=== PATIENT | female | born 1945 | race Hispanic/Latino ===

== ENCOUNTER 2019-01-09 21:03 | Inpatient (IN) | payer OTHER ==
--- OUTSIDE RECORDS SUMMARY | 2019-01-09 21:05 | XMS REPORT | Clinical Summary ---
:1945 Author Organization [facility] Address [address] [place] [address] Care Team Providers Name Role Phone Rupert Primary Care Provider Allergies No Known Allergies Medications Medication Sig Dispensed Refills Start Date End Date Status atorvastatin (LIPITOR) 40 Take 40 mg by 0 Active MG tablet mouth daily. glipiZIDE (GLUCOTROL) 10 Take 10 mg by 0 Active MG tablet mouth daily. aspirin 81 MG chewable Take 1 tablet 30 tablet 11 05/31/2017 tablet (81 mg total) 8 by mouth daily. ferrous sulfate 325 (65 Take 1 tablet 60 tablet 0 05/31/2017 FE) MG tablet (325 mg total) 8 by mouth 2 (two) times daily. hydroCHLOROthiazide Take 1 capsule 30 capsule 2 05/31/2017 (MICROZIDE) 12.5 mg (12.5 mg 8 capsule total) by mouth daily. labetalol (NORMODYNE) 300 Take 1 tablet 60 tablet 11 05/31/2017 MG tablet (300 mg total) 8 by mouth every 12 (twelve) hours. losartan (COZAAR) 100 MG Take 1 tablet 30 tablet 11 06/01/2017 tablet (100 mg total) 8 by mouth daily. metFORMIN (GLUCOPHAGE) Take 1 tablet 60 tablet 11 05/31/2017 850 MG tablet (850 mg total) 8 by mouth 2 (two) times daily with breakfast and dinner. spironolactone Take 1 tablet 30 tablet 11 05/31/2017 (ALDACTONE) 50 MG tablet (50 mg total) 8 by mouth daily. Active Problems Problem Noted Date Coronary artery arteriosclerosis 05/22/2017 Acute pulmonary insufficiency following thoracic surgery 05/22/2017 Acute blood loss anemia 05/22/2017 Social History Tobacco Use Types Packs/Day Years Used Date Never Smoker Alcohol Use Drinks/Week oz/Week Comments No Sex Assigned at Date Recorded Not on file Job Start Date Occupation Industry Not on file Not on file Not on file Travel History Travel Start Travel End No recent travel history available. Last Filed Vital Signs Not on file Plan of Treatment Health Maintenance Due Date Last Done Comments INFLUENZA VACCINE 07/30/2018 Results Not on fileafter 01/08/2018 Insurance Payer Benefit Plan / Subscriber ID Type Phone Address Group [employer] - MEDICARE [employer] MED[employer]ARE HMO xxxxxxxx [phone] [id number] [employer] POS PPO [place] [id number] Advance Directives For more information, please contact:[address] [place], [place] [phone] Code Status Date Activated Date Inactivated Comments Full Code 05/22/2017 11:38 AM 05/31/2017 5:35 PM This code status was determined by: Patient
--- OUTSIDE RECORDS SUMMARY | 2019-01-09 21:07 | XMS REPORT ---
:1945 [facility] Address [address] [place] [address] Care Team Providers Name Role Phone DARLENE SIMON Unavailable Unavailable Problems This patient has no known problems. Allergies, Adverse Reactions, Alerts This patient has no known allergies or adverse reactions. Medications This patient has no known medications. Results Test Description Test Time Test Comments Text Results Atomic Results Result Comments POCT-GLUCOSE METER 2017-05-31 07:43:00 Test Item Value Reference Range Comments POC-GLUCOSE METER (BEAKER) (test 174 mg/dL 70-110 TESTED AT [facility] [address] [facility] xgoo=3792) [facility] [address] BASIC METABOLIC [id number] 07:28:00 Test Item Value Reference Range Comments SODIUM (BEAKER) (test 140 meq/L 136-145 fsfe=242) POTASSIUM (BEAKER) (test 3.8 meq/L 3.5-5.1 jeal=584) CHLORIDE (BEAKER) (test 99 meq/L 98-107 uplt=450) CO2 (BEAKER) (test 30 meq/L 22-29 ggon=999) BLOOD UREA NITROGEN 36 mg/dL 7-21 (BEAKER) (test iwoe=887) CREATININE (BEAKER) (test 1.10 mg/dL 0.57-1.25 pcoq=940) GLUCOSE RANDOM (BEAKER) 158 mg/dL 70-105 (test rzzx=976) CALCIUM (BEAKER) (test 9.4 mg/dL 8.4-10.2 mpuq=597) EGFR (BEAKER) (test mL/min/1.73 sq m INSUFFICIENT CLINICAL DATA uzfu=6194) TO CALCULATE ESTIMATED GFR. [id number] 07:16:00 Test Item Value Reference Range Comments PHOSPHORUS (BEAKER) (test wofi=636) 3.7 mg/dL 2.3-4.7 [id number] 07:16:00 Test Item Value Reference Range Comments MAGNESIUM (BEAKER) (test oimv=094) 1.9 mg/dL 1.6-2.6 POCT-GLUCOSE [id number] 20:52:00 Test Item Value Reference Range Comments POC-GLUCOSE METER (BEAKER) 256 mg/dL 70-110 TESTED AT [address] (test lvys=6765) [facility] [address] POCT-GLUCOSE [id number] 19:07:00 Test Item Value Reference Range Comments POC-GLUCOSE METER (BEAKER) 210 mg/dL 70-110 TESTED AT [address] (test kruz=8249) [facility] [address] POCT-GLUCOSE [id number] 14:29:00 Test Item Value Reference Range Comments POC-GLUCOSE METER (BEAKER) 179 mg/dL 70-110 TESTED AT [address] (test zjnq=4323) [place] [id number] POCT-GLUCOSE [id number] 09:09:00 Test Item Value Reference Range Comments POC-GLUCOSE METER (BEAKER) 186 mg/dL 70-110 TESTED AT [address] (test bqoe=8133) [facility] [address] BASIC METABOLIC [id number] 07:41:00 Test Item Value Reference Range Comments SODIUM (BEAKER) (test 138 meq/L 136-145 mkmd=426) POTASSIUM (BEAKER) (test 3.8 meq/L 3.5-5.1 sumr=696) CHLORIDE (BEAKER) (test 102 meq/L 98-107 owkb=101) CO2 (BEAKER) (test 27 meq/L 22-29 joec=840) BLOOD UREA NITROGEN 40 mg/dL 7-21 (BEAKER) (test qaif=014) CREATININE (BEAKER) (test 1.07 mg/dL 0.57-1.25 sxdt=543) GLUCOSE RANDOM (BEAKER) 164 mg/dL 70-105 (test slrh=384) CALCIUM (BEAKER) (test 8.8 mg/dL 8.4-10.2 xjup=451) EGFR (BEAKER) (test mL/min/1.73 sq m INSUFFICIENT CLINICAL DATA qdby=2804) TO CALCULATE ESTIMATED GFR. [id number] 07:38:00 Test Item Value Reference Range Comments PHOSPHORUS (BEAKER) (test fulh=681) 3.4 mg/dL 2.3-4.7 [id number] 07:38:00 Test Item Value Reference Range Comments MAGNESIUM (BEAKER) (test nrwx=917) 1.5 mg/dL 1.6-2.6 POCT-GLUCOSE [id number] 22:12:00 Test Item Value Reference Range Comments POC-GLUCOSE METER (BEAKER) 216 mg/dL 70-110 TESTED AT [address] (test xvga=0004) [place] [id number] POCT-GLUCOSE [id number] 14:18:00 Test Item Value Reference Range Comments POC-GLUCOSE METER (BEAKER) 72 mg/dL 70-110 TESTED AT [address] (test bvay=7903) [place] [address] POCT-GLUCOSE [id number] 14:18:00 Test Item Value Reference Range Comments POC-GLUCOSE METER (BEAKER) 59 mg/dL 70-110 Notified ELIZA QUINONES/TESTED AT [facility] (test bisn=7221) [address] [place], [place] [id number] POCT-GLUCOSE [id number] 11:16:00 Test Item Value Reference Range Comments POC-GLUCOSE METER (BEAKER) 126 mg/dL 70-110 TESTED AT [address] (test ovfz=2040) [place] [address] POCT-GLUCOSE [id number] 08:49:00 Test Item Value Reference Range Comments POC-GLUCOSE METER (BEAKER) 156 mg/dL 70-110 TESTED AT [address] (test ewya=2773) [place] [address] CBC W/PLT COUNT & AUTO [id number] 07:43:00 Test Item Value Reference Range Comments WHITE BLOOD CELL COUNT (BEAKER) (test utas=358) 7.9 K/ L 3.5-10.5 RED BLOOD CELL COUNT (BEAKER) (test ndtf=105) 2.95 M/ L 3.93-5.22 HEMOGLOBIN (BEAKER) (test vqxu=474) 8.8 GM/DL 11.2-15.7 HEMATOCRIT (BEAKER) (test nvbs=062) 27.2 % 34.1-44.9 MEAN CORPUSCULAR VOLUME (BEAKER) (test unne=825) 92.2 fL 79.4-94.8 MEAN CORPUSCULAR HEMOGLOBIN (BEAKER) (test 29.8 pg 25.6-32.2 rhub=443) MEAN CORPUSCULAR HEMOGLOBIN CONC (BEAKER) (test 32.4 GM/DL 32.2-35.5 vglq=073) RED CELL DISTRIBUTION WIDTH (BEAKER) (test 15.6 % 11.7-14.4 sdig=896) PLATELET COUNT (BEAKER) (test ettc=181) 162 K/CU MM 150-450 MEAN PLATELET VOLUME (BEAKER) (test rhgi=320) 12.0 fL 9.4-12.3 NUCLEATED RED BLOOD CELLS (BEAKER) (test 0 /100 WBC 0-0 wfjn=362) NEUTROPHILS RELATIVE PERCENT (BEAKER) (test 76 % fipd=264) LYMPHOCYTES RELATIVE PERCENT (BEAKER) (test 8 % enic=887) MONOCYTES RELATIVE PERCENT (BEAKER) (test 9 % ictr=038) EOSINOPHILS RELATIVE PERCENT (BEAKER) (test 6 % chnu=396) BASOPHILS RELATIVE PERCENT (BEAKER) (test 0 % kins=131) NEUTROPHILS ABSOLUTE COUNT (BEAKER) (test 6.00 K/ L 1.56-6.13 bhjg=208) LYMPHOCYTES ABSOLUTE COUNT (BEAKER) (test 0.66 K/ L 1.18-3.74 jlqo=177) MONOCYTES ABSOLUTE COUNT (BEAKER) (test 0.71 K/ L 0.24-0.36 ovoh=178) EOSINOPHILS ABSOLUTE COUNT (BEAKER) (test 0.44 K/ L 0.04-0.36 iwfe=277) BASOPHILS ABSOLUTE COUNT (BEAKER) (test 0.01 K/ L 0.01-0.08 bmxt=989) IMMATURE GRANULOCYTES-RELATIVE PERCENT (BEAKER) 1 % 0-1 (test biwm=8954) BASIC METABOLIC [id number] 07:15:00 Test Item Value Reference Range Comments SODIUM (BEAKER) (test 139 meq/L 136-145 lwws=060) POTASSIUM (BEAKER) (test 3.9 meq/L 3.5-5.1 akqu=855) CHLORIDE (BEAKER) (test 104 meq/L 98-107 qbwx=681) CO2 (BEAKER) (test 26 meq/L 22-29 afwo=494) BLOOD UREA NITROGEN 37 mg/dL 7-21 (BEAKER) (test nkde=399) CREATININE (BEAKER) (test 1.02 mg/dL 0.57-1.25 jnix=729) GLUCOSE RANDOM (BEAKER) 133 mg/dL 70-105 (test jxkh=253) CALCIUM (BEAKER) (test 9.1 mg/dL 8.4-10.2 ebva=598) EGFR (BEAKER) (test mL/min/1.73 sq m INSUFFICIENT CLINICAL DATA fuoh=3787) TO CALCULATE ESTIMATED GFR. [id number] 07:13:00 Test Item Value Reference Range Comments PHOSPHORUS (BEAKER) (test vtmg=968) 3.2 mg/dL 2.3-4.7 [id number] 07:13:00 Test Item Value Reference Range Comments MAGNESIUM (BEAKER) (test eqyj=629) 1.7 mg/dL 1.6-2.6 POCT-GLUCOSE [id number] 21:19:00 Test Item Value Reference Range Comments POC-GLUCOSE METER (BEAKER) 228 mg/dL 70-110 TESTED AT [address] (test pbhh=1900) [place] [address] POCT-GLUCOSE [id number] 17:02:00 Test Item Value Reference Range Comments POC-GLUCOSE METER (BEAKER) 165 mg/dL 70-110 TESTED AT [address] (test epeh=9350) [place] [address] POCT-GLUCOSE [id number] 11:55:00 Test Item Value Reference Range Comments POC-GLUCOSE METER (BEAKER) 170 mg/dL 70-110 TESTED AT [address] (test dbuq=5277) [place] [address] CBC W/PLT COUNT & AUTO [id number] 10:41:00 Test Item Value Reference Range Comments WHITE BLOOD CELL COUNT (BEAKER) (test ykho=031) 6.7 K/ L 3.5-10.5 RED BLOOD CELL COUNT (BEAKER) (test ahcd=303) 2.92 M/ L 3.93-5.22 HEMOGLOBIN (BEAKER) (test oxle=947) 8.4 GM/DL 11.2-15.7 HEMATOCRIT (BEAKER) (test cdmx=870) 27.3 % 34.1-44.9 MEAN CORPUSCULAR VOLUME (BEAKER) (test lvug=487) 93.5 fL 79.4-94.8 MEAN CORPUSCULAR HEMOGLOBIN (BEAKER) (test 28.8 pg 25.6-32.2 pvrm=926) MEAN CORPUSCULAR HEMOGLOBIN CONC (BEAKER) (test 30.8 GM/DL 32.2-35.5 wner=880) RED CELL DISTRIBUTION WIDTH (BEAKER) (test 15.8 % 11.7-14.4 nisp=487) PLATELET COUNT (BEAKER) (test olmr=013) 127 K/CU MM 150-450 MEAN PLATELET VOLUME (BEAKER) (test btsd=337) 12.8 fL 9.4-12.3 NUCLEATED RED BLOOD CELLS (BEAKER) (test 0 /100 WBC 0-0 zfgd=055) NEUTROPHILS RELATIVE PERCENT (BEAKER) (test 74 % bejz=818) LYMPHOCYTES RELATIVE PERCENT (BEAKER) (test 10 % hrhy=225) MONOCYTES RELATIVE PERCENT (BEAKER) (test 10 % fwog=469) EOSINOPHILS RELATIVE PERCENT (BEAKER) (test 6 % cqxg=339) BASOPHILS RELATIVE PERCENT (BEAKER) (test 0 % rsjv=722) NEUTROPHILS ABSOLUTE COUNT (BEAKER) (test 4.95 K/ L 1.56-6.13 einm=429) LYMPHOCYTES ABSOLUTE COUNT (BEAKER) (test 0.64 K/ L 1.18-3.74 nyst=296) MONOCYTES ABSOLUTE COUNT (BEAKER) (test 0.66 K/ L 0.24-0.36 igun=510) EOSINOPHILS ABSOLUTE COUNT (BEAKER) (test 0.37 K/ L 0.04-0.36 ygfz=244) BASOPHILS ABSOLUTE COUNT (BEAKER) (test 0.01 K/ L 0.01-0.08 hnxf=571) IMMATURE GRANULOCYTES-RELATIVE PERCENT (BEAKER) 1 % 0-1 (test ygvh=9734) BASIC METABOLIC [id number] 07:41:00 Test Item Value Reference Range Comments SODIUM (BEAKER) (test 138 meq/L 136-145 voaj=396) POTASSIUM (BEAKER) (test 4.0 meq/L 3.5-5.1 ofkl=027) CHLORIDE (BEAKER) (test 107 meq/L 98-107 ekbk=453) CO2 (BEAKER) (test 25 meq/L 22-29 cvuk=722) BLOOD UREA NITROGEN 40 mg/dL 7-21 (BEAKER) (test xbhq=749) CREATININE (BEAKER) (test 1.00 mg/dL 0.57-1.25 daul=461) GLUCOSE RANDOM (BEAKER) 115 mg/dL 70-105 (test xlib=452) CALCIUM (BEAKER) (test 9.0 mg/dL 8.4-10.2 pbjb=430) EGFR (BEAKER) (test mL/min/1.73 sq m INSUFFICIENT CLINICAL DATA whec=6933) TO CALCULATE ESTIMATED GFR. POCT-GLUCOSE [id number] 07:24:00 Test Item Value Reference Range Comments POC-GLUCOSE METER (BEAKER) 134 mg/dL 70-110 TESTED AT [address] (test oyvh=6778) [place] [address] [id number] 07:24:00 Test Item Value Reference Range Comments PHOSPHORUS (BEAKER) (test xatv=844) 2.9 mg/dL 2.3-4.7 [id number] 07:24:00 Test Item Value Reference Range Comments MAGNESIUM (BEAKER) (test abiy=378) 2.0 mg/dL 1.6-2.6 POCT-GLUCOSE [id number] 20:53:00 Test Item Value Reference Range Comments POC-GLUCOSE METER (BEAKER) 133 mg/dL 70-110 TESTED AT [address] (test bvvu=0596) [place] [address] POCT-GLUCOSE [id number] 17:10:00 Test Item Value Reference Range Comments POC-GLUCOSE METER (BEAKER) 85 mg/dL 70-110 TESTED AT [address] (test eooi=9768) [place] [address] POCT-GLUCOSE [id number] 17:10:00 Test Item Value Reference Range Comments POC-GLUCOSE METER (BEAKER) 58 mg/dL 70-110 Notified ELIZA QUINONES/TESTED AT [facility] (test acrh=4383) [address] [place], [place] [id number] POCT-GLUCOSE [id number] 11:37:00 Test Item Value Reference Range Comments POC-GLUCOSE METER (BEAKER) 222 mg/dL 70-110 TESTED AT [address] (test adtm=4569) [place] [address] POCT-GLUCOSE [id number] 07:16:00 Test Item Value Reference Range Comments POC-GLUCOSE METER (BEAKER) 133 mg/dL 70-110 TESTED AT [address] (test xzne=9636) [place] [address] [id number] 06:58:00 Test Item Value Reference Range Comments MAGNESIUM (BEAKER) (test 2.5 mg/dL 1.6-2.6 Specimen slightly hemolyzed yxmi=972) [id number] 06:58:00 Test Item Value Reference Range Comments PHOSPHORUS (BEAKER) (test 2.8 mg/dL 2.3-4.7 Specimen slightly hemolyzed byjk=242) POCT-GLUCOSE [id number] 21:07:00 Test Item Value Reference Range Comments POC-GLUCOSE METER (BEAKER) 196 mg/dL 70-110 TESTED AT [address] (test ynno=1158) [place] [address] POCT-GLUCOSE [id number] 17:25:00 Test Item Value Reference Range Comments POC-GLUCOSE METER (BEAKER) 78 mg/dL 70-110 TESTED AT [address] (test tfow=3080) [place] [address] POCT-GLUCOSE [id number] 17:13:00 Test Item Value Reference Range Comments POC-GLUCOSE METER (BEAKER) 53 mg/dL 70-110 Notified ELIZA QUINONES/TESTED AT [facility] (test rhwv=7438) [address] [place] [address] POCT-GLUCOSE [id number] 12:13:00 Test Item Value Reference Range Comments POC-GLUCOSE METER (BEAKER) 73 mg/dL 70-110 TESTED AT [address] (test gkrd=6205) [place] [address] POCT-GLUCOSE [id number] 07:42:00 Test Item Value Reference Range Comments POC-GLUCOSE METER (BEAKER) 78 mg/dL 70-110 TESTED AT [address] (test sajr=3360) [place] [address] BASIC METABOLIC [id number] 07:04:00 Test Item Value Reference Range Comments SODIUM (BEAKER) (test 136 meq/L 136-145 epqi=923) POTASSIUM (BEAKER) (test 3.9 meq/L 3.5-5.1 aaat=643) CHLORIDE (BEAKER) (test 105 meq/L 98-107 qujl=334) CO2 (BEAKER) (test 25 meq/L 22-29 hqma=204) BLOOD UREA NITROGEN 50 mg/dL 7-21 (BEAKER) (test ream=574) CREATININE (BEAKER) (test 1.11 mg/dL 0.57-1.25 lpig=906) GLUCOSE RANDOM (BEAKER) 79 mg/dL 70-105 (test deec=003) CALCIUM (BEAKER) (test 8.9 mg/dL 8.4-10.2 xjwd=192) EGFR (BEAKER) (test mL/min/1.73 sq m INSUFFICIENT CLINICAL DATA drag=5448) TO CALCULATE ESTIMATED GFR. [id number] 07:03:00 Test Item Value Reference Range Comments PHOSPHORUS (BEAKER) (test jqpn=615) 2.8 mg/dL 2.3-4.7 [id number] 07:03:00 Test Item Value Reference Range Comments MAGNESIUM (BEAKER) (test rgyu=589) 2.2 mg/dL 1.6-2.6 CBC (HEMOGRAM ONLY)2017-05-26 06:52:00 Test Item Value Reference Range Comments WHITE BLOOD CELL COUNT (BEAKER) (test mbde=751) 6.3 K/ L 3.5-10.5 RED BLOOD CELL COUNT (BEAKER) (test xswy=975) 2.82 M/ L 3.93-5.22 HEMOGLOBIN (BEAKER) (test vtzw=022) 8.3 GM/DL 11.2-15.7 HEMATOCRIT (BEAKER) (test pnal=252) 25.8 % 34.1-44.9 MEAN CORPUSCULAR VOLUME (BEAKER) (test xazl=125) 91.5 fL 79.4-94.8 MEAN CORPUSCULAR HEMOGLOBIN (BEAKER) (test 29.4 pg 25.6-32.2 onlh=188) MEAN CORPUSCULAR HEMOGLOBIN CONC (BEAKER) (test 32.2 GM/DL 32.2-35.5 npjl=866) RED CELL DISTRIBUTION WIDTH (BEAKER) (test 15.9 % 11.7-14.4 adyv=720) PLATELET COUNT (BEAKER) (test fbjz=708) 82 K/CU MM 150-450 MEAN PLATELET VOLUME (BEAKER) (test zetb=674) 12.9 fL 9.4-12.3 NUCLEATED RED BLOOD CELLS (BEAKER) (test 0 /100 WBC 0-0 kpfc=269) POCT-GLUCOSE [id number] 21:21:00 Test Item Value Reference Range Comments POC-GLUCOSE METER (BEAKER) 171 mg/dL 70-110 TESTED AT [address] (test kfpr=9940) [place] [address] POCT-GLUCOSE [id number] 18:49:00 Test Item Value Reference Range Comments POC-GLUCOSE METER (BEAKER) 190 mg/dL 70-110 TESTED AT [address] (test jwet=3226) [facility] [address] POCT-GLUCOSE [id number] 12:33:00 Test Item Value Reference Range Comments POC-GLUCOSE METER (BEAKER) 213 mg/dL 70-110 TESTED AT [address] (test fvyo=5769) [place] [address] POCT-GLUCOSE [id number] 08:39:00 Test Item Value Reference Range Comments POC-GLUCOSE METER (BEAKER) 234 mg/dL 70-110 TESTED AT [address] (test qqks=4663) [facility] [address] BASIC METABOLIC [id number] 07:16:00 Test Item Value Reference Range Comments SODIUM (BEAKER) (test 132 meq/L 136-145 qdlk=597) POTASSIUM (BEAKER) (test 5.0 meq/L 3.5-5.1 Specimen moderately jtoj=392) hemolyzed CHLORIDE (BEAKER) (test 104 meq/L 98-107 aanl=923) CO2 (BEAKER) (test 19 meq/L 22-29 mmis=602) BLOOD UREA NITROGEN 45 mg/dL 7-21 (BEAKER) (test zidl=096) CREATININE (BEAKER) (test 1.23 mg/dL 0.57-1.25 Specimen moderately ltkx=716) hemolyzed GLUCOSE RANDOM (BEAKER) 211 mg/dL 70-105 (test zyaw=946) CALCIUM (BEAKER) (test 9.0 mg/dL 8.4-10.2 zakr=119) EGFR (BEAKER) (test mL/min/1.73 sq m INSUFFICIENT CLINICAL DATA vxdo=7666) TO CALCULATE ESTIMATED GFR. [id number] 07:12:00 Test Item Value Reference Range Comments MAGNESIUM (BEAKER) (test 2.6 mg/dL 1.6-2.6 Specimen moderately hemolyzed lbau=567) [id number] 07:12:00 Test Item Value Reference Range Comments PHOSPHORUS (BEAKER) (test 2.8 mg/dL 2.3-4.7 Specimen moderately hemolyzed glru=246) CBC (HEMOGRAM ONLY)2017-05-25 06:51:00 Test Item Value Reference Range Comments WHITE BLOOD CELL COUNT (BEAKER) (test rytl=501) 10.1 K/ L 3.5-10.5 RED BLOOD CELL COUNT (BEAKER) (test njks=909) 3.09 M/ L 3.93-5.22 HEMOGLOBIN (BEAKER) (test fqzx=315) 9.0 GM/DL 11.2-15.7 HEMATOCRIT (BEAKER) (test bylj=442) 28.3 % 34.1-44.9 MEAN CORPUSCULAR VOLUME (BEAKER) (test ghep=810) 91.6 fL 79.4-94.8 MEAN CORPUSCULAR HEMOGLOBIN (BEAKER) (test 29.1 pg 25.6-32.2 dlpe=848) MEAN CORPUSCULAR HEMOGLOBIN CONC (BEAKER) (test 31.8 GM/DL 32.2-35.5 xwhl=278) RED CELL DISTRIBUTION WIDTH (BEAKER) (test 16.0 % 11.7-14.4 wjdj=604) PLATELET COUNT (BEAKER) (test zmzi=391) 71 K/CU MM 150-450 MEAN PLATELET VOLUME (BEAKER) (test hkgo=878) 13.4 fL 9.4-12.3 NUCLEATED RED BLOOD CELLS (BEAKER) (test 0 /100 WBC 0-0 ukrd=694) POCT-GLUCOSE [id number] 22:22:00 Test Item Value Reference Range Comments POC-GLUCOSE METER (BEAKER) 190 mg/dL 70-110 TESTED AT [place] [address] (test qruz=1374) [facility] [address] POCT-GLUCOSE [id number] 18:10:00 Test Item Value Reference Range Comments POC-GLUCOSE METER (BEAKER) 338 mg/dL 70-110 Notified ELIZA QUINONES/TESTED AT [facility] (test cggx=0592) [address] [facility] [address] POCT-GLUCOSE [id number] 14:03:00 Test Item Value Reference Range Comments POC-GLUCOSE METER (BEAKER) 260 mg/dL 70-110 TESTED AT [facility] [address] (test udyi=5580) [facility] [address] POCT-GLUCOSE [id number] 08:28:00 Test Item Value Reference Range Comments POC-GLUCOSE METER (BEAKER) 307 mg/dL 70-110 Notified ELIZA QUINONES/TESTED AT [facility] (test aqlp=2483) [address] [facility] [address] [id number] 07:02:00 Test Item Value Reference Range Comments PHOSPHORUS (BEAKER) (test rjbg=917) 3.3 mg/dL 2.3-4.7 [id number] 07:02:00 Test Item Value Reference Range Comments MAGNESIUM (BEAKER) (test agzb=288) 2.0 mg/dL 1.6-2.6 BASIC METABOLIC [id number] 07:02:00 Test Item Value Reference Range Comments SODIUM (BEAKER) (test 136 meq/L 136-145 zluy=992) POTASSIUM (BEAKER) (test 4.2 meq/L 3.5-5.1 sxjr=272) CHLORIDE (BEAKER) (test 105 meq/L 98-107 hbdr=934) CO2 (BEAKER) (test 24 meq/L 22-29 xwft=938) BLOOD UREA NITROGEN 32 mg/dL 7-21 (BEAKER) (test wgqw=249) CREATININE (BEAKER) (test 1.21 mg/dL 0.57-1.25 rgdv=472) GLUCOSE RANDOM (BEAKER) 286 mg/dL 70-105 (test eove=545) CALCIUM (BEAKER) (test 9.0 mg/dL 8.4-10.2 mjbe=430) EGFR (BEAKER) (test mL/min/1.73 sq m INSUFFICIENT CLINICAL DATA gaiu=1200) TO CALCULATE ESTIMATED GFR. CBC (HEMOGRAM ONLY)2017-05-24 06:48:00 Test Item Value Reference Range Comments WHITE BLOOD CELL COUNT (BEAKER) (test iggr=648) 9.8 K/ L 3.5-10.5 RED BLOOD CELL COUNT (BEAKER) (test fqlw=928) 3.12 M/ L 3.93-5.22 HEMOGLOBIN (BEAKER) (test hkje=514) 9.3 GM/DL 11.2-15.7 HEMATOCRIT (BEAKER) (test ioww=033) 28.4 % 34.1-44.9 MEAN CORPUSCULAR VOLUME (BEAKER) (test qhxv=113) 91.0 fL 79.4-94.8 MEAN CORPUSCULAR HEMOGLOBIN (BEAKER) (test 29.8 pg 25.6-32.2 qavi=766) MEAN CORPUSCULAR HEMOGLOBIN CONC (BEAKER) (test 32.7 GM/DL 32.2-35.5 emjo=658) RED CELL DISTRIBUTION WIDTH (BEAKER) (test 16.5 % 11.7-14.4 abzm=579) PLATELET COUNT (BEAKER) (test txhv=405) 68 K/CU MM 150-450 MEAN PLATELET VOLUME (BEAKER) (test ratf=718) 13.6 fL 9.4-12.3 NUCLEATED RED BLOOD CELLS (BEAKER) (test 0 /100 WBC 0-0 abmr=619) POCT-GLUCOSE [id number] 00:13:00 Test Item Value Reference Range Comments POC-GLUCOSE METER (BEAKER) 363 mg/dL 70-110 TESTED AT [address] (test fybt=3476) [facility] [address] POCT-GLUCOSE [id number] 17:08:00 Test Item Value Reference Range Comments POC-GLUCOSE METER (BEAKER) 365 mg/dL 70-110 TESTED AT [address] (test vuny=1992) [facility] [address] POCT-GLUCOSE [id number] 16:42:00 Test Item Value Reference Range Comments POC-GLUCOSE METER (BEAKER) 396 mg/dL 70-110 Notified ELIZA QUINONES/TESTED AT [facility] (test tcze=9415) [address] [place] [id number] POCT-GLUCOSE [id number] 07:42:00 Test Item Value Reference Range Comments POC-GLUCOSE METER (BEAKER) 145 mg/dL 70-110 TESTED AT [address] (test zbga=2286) [facility] [address] POCT-GLUCOSE [id number] 06:37:00 Test Item Value Reference Range Comments POC-GLUCOSE METER (BEAKER) 99 mg/dL 70-110 TESTED AT [address] (test mpsu=5033) [facility] [address] POCT-GLUCOSE [id number] 06:37:00 Test Item Value Reference Range Comments POC-GLUCOSE METER (BEAKER) 126 mg/dL 70-110 TESTED AT [address] (test fnio=9445) [facility] [address] POCT-GLUCOSE [id number] 04:11:00 Test Item Value Reference Range Comments POC-GLUCOSE METER (BEAKER) 137 mg/dL 70-110 TESTED AT [address] (test maxq=9157) [facility] [address] POCT-GLUCOSE [id number] 04:11:00 Test Item Value Reference Range Comments POC-GLUCOSE METER (BEAKER) 193 mg/dL 70-110 TESTED AT [address] (test ydna=5112) [facility] [address] POCT-GLUCOSE [id number] 04:11:00 Test Item Value Reference Range Comments POC-GLUCOSE METER (BEAKER) 220 mg/dL 70-110 TESTED AT [address] (test yesq=4641) [facility] [address] POCT-GLUCOSE [id number] 04:11:00 Test Item Value Reference Range Comments POC-GLUCOSE METER (BEAKER) 228 mg/dL 70-110 TESTED AT [address] (test cusc=8882) [facility] [address] BASIC METABOLIC [id number] 04:04:00 Test Item Value Reference Range Comments SODIUM (BEAKER) (test 143 meq/L 136-145 zevk=868) POTASSIUM (BEAKER) (test 4.1 meq/L 3.5-5.1 gfxo=513) CHLORIDE (BEAKER) (test 114 meq/L 98-107 tjed=371) CO2 (BEAKER) (test 23 meq/L 22-29 hzvc=239) BLOOD UREA NITROGEN 24 mg/dL 7-21 (BEAKER) (test xibb=752) CREATININE (BEAKER) (test 0.85 mg/dL 0.57-1.25 zdeo=779) GLUCOSE RANDOM (BEAKER) 146 mg/dL 70-105 (test murg=391) CALCIUM (BEAKER) (test 9.0 mg/dL 8.4-10.2 gtvg=437) EGFR (BEAKER) (test mL/min/1.73 sq m INSUFFICIENT CLINICAL DATA plna=9483) TO CALCULATE ESTIMATED GFR. [id number] 03:49:00 Test Item Value Reference Range Comments PHOSPHORUS (BEAKER) (test fiqm=573) 2.6 mg/dL 2.3-4.7 [id number] 03:49:00 Test Item Value Reference Range Comments MAGNESIUM (BEAKER) (test xucp=428) 2.3 mg/dL 1.6-2.6 CBC (HEMOGRAM ONLY)[id number] 03:36:00 Test Item Value Reference Range Comments WHITE BLOOD CELL COUNT (BEAKER) (test lrbh=091) 9.9 K/ L 3.5-10.5 RED BLOOD CELL COUNT (BEAKER) (test vxua=469) 3.43 M/ L 3.93-5.22 HEMOGLOBIN (BEAKER) (test cyvq=667) 10.0 GM/DL 11.2-15.7 HEMATOCRIT (BEAKER) (test grsa=568) 30.6 % 34.1-44.9 MEAN CORPUSCULAR VOLUME (BEAKER) (test ipog=472) 89.2 fL 79.4-94.8 MEAN CORPUSCULAR HEMOGLOBIN (BEAKER) (test 29.2 pg 25.6-32.2 fbcd=960) MEAN CORPUSCULAR HEMOGLOBIN CONC (BEAKER) (test 32.7 GM/DL 32.2-35.5 tjyk=037) RED CELL DISTRIBUTION WIDTH (BEAKER) (test 16.5 % 11.7-14.4 rtqk=256) PLATELET COUNT (BEAKER) (test iuel=766) 68 K/CU MM 150-450 MEAN PLATELET VOLUME (BEAKER) (test ghey=056) 12.2 fL 9.4-12.3 NUCLEATED RED BLOOD CELLS (BEAKER) (test 0 /100 WBC 0-0 gegc=343) BLOOD GAS, [id number] 03:25:00 Test Item Value Reference Range Comments PH ARTERIAL (BEAKER) (test eyja=066) 7.36 7.35-7.45 PCO2 ARTERIAL (BEAKER) (test gupr=834) 46 mmHg 35-45 PO2 ARTERIAL (BEAKER) (test kqoc=731) 135 mmHg 80-90 O2 SATURATION ARTERIAL (BEAKER) (test mrqs=315) 98.6 % 96.0-97.0 HCO3 ARTERIAL (BEAKER) (test qpro=194) 25 mmol/L 21-29 BASE EXCESS ARTERIAL (BEAKER) (test nwlh=543) -0.5 mmol/L -2.0-3.0 PATIENT TEMPERATURE (BEAKER) (test lobi=1091) 37.1 C FIO2 (BEAKER) (test eixk=9708) 40.0 % POCT-GLUCOSE [id number] 03:22:00 Test Item Value Reference Range Comments POC-GLUCOSE METER (BEAKER) 154 mg/dL 70-110 TESTED AT [facility] [address] [facility] (test uvzr=2229) [facility] [address] BLOOD GAS, [id number] 00:25:00 Test Item Value Reference Range Comments PH ARTERIAL (BEAKER) (test rjpm=192) 7.32 7.35-7.45 PCO2 ARTERIAL (BEAKER) (test qzfn=837) 51 mmHg 35-45 PO2 ARTERIAL (BEAKER) (test nrxp=202) 117 mmHg 80-90 O2 SATURATION ARTERIAL (BEAKER) (test tcvu=259) 97.9 % 96.0-97.0 HCO3 ARTERIAL (BEAKER) (test erim=490) 26 mmol/L 21-29 BASE EXCESS ARTERIAL (BEAKER) (test yjae=856) -1.0 mmol/L -2.0-3.0 PATIENT TEMPERATURE (BEAKER) (test sxwo=2310) 36.7 C FIO2 (BEAKER) (test klyp=8560) 36.0 % Post-extubation ABGBLOOD GAS, [id number] 23:12:00 Test Item Value Reference Range Comments PH ARTERIAL (BEAKER) (test dmiv=170) 7.34 7.35-7.45 PCO2 ARTERIAL (BEAKER) (test tvwr=592) 45 mmHg 35-45 PO2 ARTERIAL (BEAKER) (test viai=922) 111 mmHg 80-90 O2 SATURATION ARTERIAL (BEAKER) (test yzek=842) 98.0 % 96.0-97.0 HCO3 ARTERIAL (BEAKER) (test nvxf=134) 24 mmol/L 21-29 BASE EXCESS ARTERIAL (BEAKER) (test wshd=999) -2.4 mmol/L -2.0-3.0 PATIENT TEMPERATURE (BEAKER) (test kaah=4193) 35.8 C FIO2 (BEAKER) (test citw=8070) 40.0 % POCT-GLUCOSE [id number] 22:30:00 Test Item Value Reference Range Comments POC-GLUCOSE METER (BEAKER) 214 mg/dL 70-110 TESTED AT [address] (test zftr=1903) [facility] [address] POCT-GLUCOSE [id number] 22:29:00 Test Item Value Reference Range Comments POC-GLUCOSE METER (BEAKER) 197 mg/dL 70-110 TESTED AT [address] (test yusb=9826) [facility] [address] POCT-GLUCOSE [id number] 22:29:00 Test Item Value Reference Range Comments POC-GLUCOSE METER (BEAKER) 193 mg/dL 70-110 TESTED AT [address] (test uaux=4120) [place] [address] [id number] 19:50:00 Test Item Value Reference Range Comments SODIUM (BEAKER) (test wsff=061) 141 meq/L 136-145 BASIC METABOLIC [id number] 19:47:00 Test Item Value Reference Range Comments SODIUM (BEAKER) (test 141 meq/L 136-145 vllv=132) POTASSIUM (BEAKER) (test 4.6 meq/L 3.5-5.1 nsrh=142) CHLORIDE (BEAKER) (test 113 meq/L 98-107 misp=496) CO2 (BEAKER) (test 18 meq/L 22-29 bnrp=163) BLOOD UREA NITROGEN 25 mg/dL 7-21 (BEAKER) (test eyse=422) CREATININE (BEAKER) (test 0.80 mg/dL 0.57-1.25 ryez=774) GLUCOSE RANDOM (BEAKER) 169 mg/dL 70-105 (test myap=191) CALCIUM (BEAKER) (test 8.9 mg/dL 8.4-10.2 dobk=562) EGFR (BEAKER) (test mL/min/1.73 sq m INSUFFICIENT CLINICAL DATA stly=7733) TO CALCULATE ESTIMATED GFR. [id number] 19:18:00 Test Item Value Reference Range Comments POTASSIUM (BEAKER) (test gwfz=136) 4.6 meq/L 3.5-5.1 [id number] 19:18:00 Test Item Value Reference Range Comments MAGNESIUM (BEAKER) (test hwdw=086) 2.6 mg/dL 1.6-2.6 [id number] 19:18:00 Test Item Value Reference Range Comments PHOSPHORUS (BEAKER) (test ldod=667) 2.8 mg/dL 2.3-4.7 [id number] 19:18:00 Test Item Value Reference Range Comments GLUCOSE RANDOM (BEAKER) (test xaxo=345) 169 mg/dL 70-105 Effective 09/16/2014: Reference Range Change-Adult onlyNew: 70-105 Previous : [id number] 19:15:00 Test Item Value Reference Range Comments PARTIAL THROMBOPLASTIN TIME (BEAKER) (test 32.7 seconds 22.5-36.0 aeww=557) [id number] 19:15:00 Test Item Value Reference Range Comments FIBRINOGEN LEVEL (BEAKER) (test ovhe=306) 181 mg/dl 225-434 LACTIC ACID, ARTERIAL, WHOLE [id number] 19:15:00 Test Item Value Reference Range Comments LACTATE BLOOD ARTERIAL (2) (BEAKER) (test 0.9 mmol/L 0.5-2.2 uuse=2752) Effective 03/02/2016: Units/Reference Range ChangeNew: 0.5-2.2 mmol/L Previous: 5 -20 mg/dLPROTHROMBIN [id number] 19:14:00 Test Item Value Reference Range Comments PROTIME (BEAKER) (test semj=075) 18.7 seconds 11.7-14.7 INR (BEAKER) (test ujoy=816) 1.6 <=5.9 RECOMMENDED COUMADIN/WARFARIN INR THERAPY RANGESSTANDARD DOSE: 2.0 - 3.0 Includes: PROPHYLAXIS forvenous thrombosis, systemic embolization; TREATMENT for venous thrombosis and/or pulmonary embolus.HIGH RISK: Target INR is 2.5-3.5 for patients with mechanical heart valves.CBC W/PLT COUNT & AUTO [id number] 19:09:00 Test Item Value Reference Range Comments WHITE BLOOD CELL COUNT (BEAKER) (test riqq=097) 6.4 K/ L 3.5-10.5 RED BLOOD CELL COUNT (BEAKER) (test pcff=810) 3.50 M/ L 3.93-5.22 HEMOGLOBIN (BEAKER) (test wxkx=676) 10.4 GM/DL 11.2-15.7 HEMATOCRIT (BEAKER) (test uouq=519) 31.0 % 34.1-44.9 MEAN CORPUSCULAR VOLUME (BEAKER) (test gdxt=022) 88.6 fL 79.4-94.8 MEAN CORPUSCULAR HEMOGLOBIN (BEAKER) (test 29.7 pg 25.6-32.2 jlix=944) MEAN CORPUSCULAR HEMOGLOBIN CONC (BEAKER) (test 33.5 GM/DL 32.2-35.5 nudr=165) RED CELL DISTRIBUTION WIDTH (BEAKER) (test 15.7 % 11.7-14.4 unwj=199) PLATELET COUNT (BEAKER) (test qsez=760) 53 K/CU MM 150-450 MEAN PLATELET VOLUME (BEAKER) (test lssr=980) 12.0 fL 9.4-12.3 NUCLEATED RED BLOOD CELLS (BEAKER) (test 0 /100 WBC 0-0 gamj=640) NEUTROPHILS RELATIVE PERCENT (BEAKER) (test 81 % jxwx=094) LYMPHOCYTES RELATIVE PERCENT (BEAKER) (test 9 % lkzg=327) MONOCYTES RELATIVE PERCENT (BEAKER) (test 6 % efvh=564) EOSINOPHILS RELATIVE PERCENT (BEAKER) (test 3 % znyf=501) BASOPHILS RELATIVE PERCENT (BEAKER) (test 0 % osig=704) NEUTROPHILS ABSOLUTE COUNT (BEAKER) (test 5.15 K/ L 1.56-6.13 zzmb=030) LYMPHOCYTES ABSOLUTE COUNT (BEAKER) (test 0.60 K/ L 1.18-3.74 clvy=796) MONOCYTES ABSOLUTE COUNT (BEAKER) (test gqrx=755) 0.41 K/ L 0.24-0.36 EOSINOPHILS ABSOLUTE COUNT (BEAKER) (test 0.16 K/ L 0.04-0.36 hcjh=824) BASOPHILS ABSOLUTE COUNT (BEAKER) (test gvry=348) 0.01 K/ L 0.01-0.08 IMMATURE GRANULOCYTES-RELATIVE PERCENT (BEAKER) 1 % 0-1 (test rdlv=4121) OXYGEN SATURATION, [id number] 18:57:00 Test Item Value Reference Range Comments O2 SATURATION (MEASURED) (BEAKER) (test ojsj=9064) 66.7 % CALCIUM, [id number] 18:57:00 Test Item Value Reference Range Comments CALCIUM IONIZED (BEAKER) (test tylf=844) 1.10 mmol/L 1.12-1.27 PH, BLOOD (BEAKER) (test svxk=4376) 7.42 BLOOD GAS, [id number] 18:56:00 Test Item Value Reference Range Comments PH ARTERIAL (BEAKER) (test bhlj=757) 7.42 7.35-7.45 PCO2 ARTERIAL (BEAKER) (test kqaa=448) 32 mmHg 35-45 PO2 ARTERIAL (BEAKER) (test qcor=694) 207 mmHg 80-90 O2 SATURATION ARTERIAL (BEAKER) (test tmci=599) 99.5 % 96.0-97.0 HCO3 ARTERIAL (BEAKER) (test yoog=335) 21 mmol/L 21-29 BASE EXCESS ARTERIAL (BEAKER) (test atpm=765) -3.7 mmol/L -2.0-3.0 PATIENT TEMPERATURE (BEAKER) (test tsul=9605) 34.3 C FIO2 (BEAKER) (test yrbm=3075) 40.0 % [id number] 18:04:00 Test Item Value Reference Range Comments ACTIVATED CLOTTING TIME > sec OUTSIDE MEASURING RANGETESTED AT (BEAKER) (test ilqz=456) [facility] [address] [facility] [address] [id number] 18:04:00 Test Item Value Reference Range Comments ACTIVATED CLOTTING TIME > sec OUTSIDE MEASURING RANGETESTED AT (BEAKER) (test tvmt=993) [facility] [address] [facility] [address] THROMBOELASTOGRAPH ([id number])[id number] 17:31:00 Test Item Value Reference Range Comments TEG ACTIVATED CLOTTING TIME (BEAKER) (test 9.1 minutes 4.0-7.0 snft=2396) TEG FIBRINOGEN ACTIVITY (BEAKER) (test 63.0 degrees 61.0-73.0 lqnz=7285) TEG PLT. AGGREGATION (BEAKER) (test atkx=7321) 58.2 MM 55.0-65.0 [facility] ACTIVATED CLOTTING TIME (BEAKER) (test 9.1 minutes 4.0-7.0 wwkl=3232) [facility] FIBRINOGEN ACTIVITY (BEAKER) (test 63.9 degrees 61.0-73.0 ybhk=7312) [facility] PLT. AGGREGATION (BEAKER) (test iyhv=3776) 57.0 MM 55.0-65.0 [id number] 17:11:00 Test Item Value Reference Range Comments FIBRINOGEN LEVEL (BEAKER) (test iaba=055) 203 mg/dl 225-434 [id number] 17:06:00 Test Item Value Reference Range Comments PARTIAL THROMBOPLASTIN TIME (BEAKER) (test 35.4 seconds 22.5-36.0 uuum=203) PROTHROMBIN [id number] 17:05:00 Test Item Value Reference Range Comments PROTIME (BEAKER) (test jtpw=689) 21.6 seconds 11.7-14.7 INR (BEAKER) (test kdll=647) 1.9 <=5.9 RECOMMENDED COUMADIN/WARFARIN INR THERAPY RANGESSTANDARD DOSE: 2.0 - 3.0 Includes: PROPHYLAXIS forvenous thrombosis, systemic embolization; TREATMENT for venous thrombosis and/or pulmonary embolus.HIGH RISK: Target INR is 2.5-3.5 for patients with mechanical heart valves.POTASSIUM-STAT [id number] 16:58:00 Test Item Value Reference Range Comments POTASSIUM (BEAKER) (test rbpo=030) 5.0 meq/L 3.6-5.5 CALCIUM, [id number] 16:58:00 Test Item Value Reference Range Comments CALCIUM IONIZED (BEAKER) (test xwos=691) 0.98 mmol/L 1.12-1.27 PH, BLOOD (BEAKER) (test mjyj=7680) 7.34 BLOOD GAS, [id number] 16:58:00 Test Item Value Reference Range Comments PH ARTERIAL (BEAKER) (test mpch=902) 7.34 7.35-7.45 PCO2 ARTERIAL (BEAKER) (test lsvo=927) 35 mmHg 35-45 PO2 ARTERIAL (BEAKER) (test beet=100) 424 mmHg 80-90 O2 SATURATION ARTERIAL (BEAKER) (test dafr=922) 99.8 % 96.0-97.0 HCO3 ARTERIAL (BEAKER) (test akvu=058) 19 mmol/L 21-29 BASE EXCESS ARTERIAL (BEAKER) (test jksn=573) -6.7 mmol/L -2.0-3.0 PATIENT TEMPERATURE (BEAKER) (test cuxg=8638) 36.0 C FIO2 (BEAKER) (test vnia=5243) 100.0 % SODIUM NA-STAT [id number] 16:58:00 Test Item Value Reference Range Comments SODIUM (BEAKER) (test vwqu=495) 131 meq/L 135-148 GLUCOSE-STAT [id number] 16:58:00 Test Item Value Reference Range Comments GLUCOSE RANDOM (BEAKER) (test hvkc=823) 190 mg/dL 70-110 HGB/HCT (H&H) - STAT [id number] 16:58:00 Test Item Value Reference Range Comments HEMOGLOBIN (BEAKER) (test xtzx=341) 10.0 g/dL 12.0-15.0 HEMATOCRIT (BEAKER) (test djbj=436) 29.0 % 36.0-45.0 PLATELET [id number] 16:40:00 Test Item Value Reference Range Comments PLATELET COUNT (BEAKER) (test ldke=313) 64 K/CU MM 150-450 SODIUM NA-STAT [id number] 16:34:00 Test Item Value Reference Range Comments SODIUM (BEAKER) (test usff=271) 130 meq/L 135-148 GLUCOSE-STAT [id number] 16:34:00 Test Item Value Reference Range Comments GLUCOSE RANDOM (BEAKER) (test xejc=406) 161 mg/dL 70-110 HGB/HCT (H&H) - STAT [id number] 16:34:00 Test Item Value Reference Range Comments HEMOGLOBIN (BEAKER) (test rpav=585) 7.5 g/dL 12.0-15.0 HEMATOCRIT (BEAKER) (test lbbo=642) 22.0 % 36.0-45.0 CALCIUM, [id number] 16:34:00 Test Item Value Reference Range Comments CALCIUM IONIZED (BEAKER) (test oyys=750) 1.11 mmol/L 1.12-1.27 PH, BLOOD (BEAKER) (test fmep=0023) 7.41 BLOOD GAS, [id number] 16:34:00 Test Item Value Reference Range Comments PH ARTERIAL (BEAKER) (test grvz=657) 7.41 7.35-7.45 PCO2 ARTERIAL (BEAKER) (test yocl=974) 33 mmHg 35-45 PO2 ARTERIAL (BEAKER) (test mizx=387) 295 mmHg 80-90 O2 SATURATION ARTERIAL (BEAKER) (test huzh=910) 99.7 % 96.0-97.0 HCO3 ARTERIAL (BEAKER) (test kifv=103) 21 mmol/L 21-29 BASE EXCESS ARTERIAL (BEAKER) (test idqc=296) -3.8 mmol/L -2.0-3.0 PATIENT TEMPERATURE (BEAKER) (test yvcq=4240) 36.2 C FIO2 (BEAKER) (test nuyy=9223) 90.0 % POTASSIUM-STAT [id number] 16:33:00 Test Item Value Reference Range Comments POTASSIUM (BEAKER) (test mugq=135) 5.4 meq/L 3.6-5.5 POTASSIUM-STAT [id number] 15:48:00 Test Item Value Reference Range Comments POTASSIUM (BEAKER) (test htsk=990) 5.2 meq/L 3.6-5.5 BLOOD GAS, [id number] 15:48:00 Test Item Value Reference Range Comments PH ARTERIAL (BEAKER) (test hfqy=271) 7.45 7.35-7.45 PCO2 ARTERIAL (BEAKER) (test nvkt=601) 32 mmHg 35-45 PO2 ARTERIAL (BEAKER) (test fyvz=140) 272 mmHg 80-90 O2 SATURATION ARTERIAL (BEAKER) (test lmdn=899) 99.7 % 96.0-97.0 HCO3 ARTERIAL (BEAKER) (test pprt=904) 23 mmol/L 21-29 BASE EXCESS ARTERIAL (BEAKER) (test pdif=271) -2.1 mmol/L -2.0-3.0 PATIENT TEMPERATURE (BEAKER) (test nwnh=0322) 31.5 C FIO2 (BEAKER) (test odjd=4637) 70.0 % SODIUM NA-STAT [id number] 15:48:00 Test Item Value Reference Range Comments SODIUM (BEAKER) (test yfcm=298) 132 meq/L 135-148 GLUCOSE-STAT [id number] 15:48:00 Test Item Value Reference Range Comments GLUCOSE RANDOM (BEAKER) (test ocvb=820) 116 mg/dL 70-110 HGB/HCT (H&H) - STAT [id number] 15:48:00 Test Item Value Reference Range Comments HEMOGLOBIN (BEAKER) (test nodi=710) 6.3 g/dL 12.0-15.0 HEMATOCRIT (BEAKER) (test thtm=631) 19.0 % 36.0-45.0 HGB/HCT (H&H) - STAT [id number] 14:17:00 Test Item Value Reference Range Comments HEMOGLOBIN (BEAKER) (test okyb=488) 10.2 g/dL 12.0-15.0 HEMATOCRIT (BEAKER) (test huza=426) 30.0 % 36.0-45.0 BLOOD GAS, [id number] 14:16:00 Test Item Value Reference Range Comments PH ARTERIAL (BEAKER) (test wsty=083) 7.50 7.35-7.45 PCO2 ARTERIAL (BEAKER) (test dulu=488) 30 mmHg 35-45 PO2 ARTERIAL (BEAKER) (test iaqb=580) 555 mmHg 80-90 O2 SATURATION ARTERIAL (BEAKER) (test adyk=040) 99.9 % 96.0-97.0 HCO3 ARTERIAL (BEAKER) (test glgl=824) 23 mmol/L 21-29 BASE EXCESS ARTERIAL (BEAKER) (test sqop=869) -0.1 mmol/L -2.0-3.0 PATIENT TEMPERATURE (BEAKER) (test xnlm=6257) 36.5 C FIO2 (BEAKER) (test rvgo=2522) 100.0 % GLUCOSE-STAT [id number] 14:13:00 Test Item Value Reference Range Comments GLUCOSE RANDOM (BEAKER) (test ufxi=919) 104 mg/dL 70-110 SODIUM NA-STAT [id number] 14:13:00 Test Item Value Reference Range Comments SODIUM (BEAKER) (test xnzz=608) 136 meq/L 135-148 POTASSIUM-STAT [id number] 14:13:00 Test Item Value Reference Range Comments POTASSIUM (BEAKER) (test lykg=321) 3.9 meq/L 3.6-5.5 HEMOGLOBIN [id number] 15:10:00 Test Item Value Reference Range Comments HEMOGLOBIN A1C (BEAKER) (test vstn=727) 7.4 % 4.3-6.1 BASIC METABOLIC [id number] 11:36:00 Test Item Value Reference Range Comments SODIUM (BEAKER) (test 138 meq/L 136-145 kozl=289) POTASSIUM (BEAKER) (test 4.4 meq/L 3.5-5.1 togh=421) CHLORIDE (BEAKER) (test 108 meq/L 98-107 tfig=505) CO2 (BEAKER) (test 22 meq/L 22-29 anzs=694) BLOOD UREA NITROGEN 31 mg/dL 7-21 (BEAKER) (test nszm=323) CREATININE (BEAKER) (test 1.11 mg/dL 0.57-1.25 vtso=270) GLUCOSE RANDOM (BEAKER) 127 mg/dL 70-105 (test evao=804) CALCIUM (BEAKER) (test 9.6 mg/dL 8.4-10.2 kmev=956) EGFR (BEAKER) (test mL/min/1.73 sq m INSUFFICIENT CLINICAL DATA euip=0391) TO CALCULATE ESTIMATED GFR. PROTHROMBIN [id number] 11:29:00 Test Item Value Reference Range Comments PROTIME (BEAKER) (test dpro=660) 14.2 seconds 11.7-14.7 INR (BEAKER) (test lksu=265) 1.1 <=5.9 RECOMMENDED COUMADIN/WARFARIN INR THERAPY RANGESSTANDARD DOSE: 2.0 - 3.0 Includes: PROPHYLAXIS forvenous thrombosis, systemic embolization; TREATMENT for venous thrombosis and/or pulmonary embolus.HIGH RISK: Target INR is 2.5-3.5 for patients with mechanical heart valves.CBC W/PLT COUNT & AUTO [id number] 11:23:00 Test Item Value Reference Range Comments WHITE BLOOD CELL COUNT (BEAKER) (test fnjc=465) 6.6 K/ L 4.0-10.0 RED BLOOD CELL COUNT (BEAKER) (test tbvs=895) 3.60 M/ L 4.00-5.00 HEMOGLOBIN (BEAKER) (test lyht=295) 11.5 GM/DL 12.0-15.0 HEMATOCRIT (BEAKER) (test qwxy=004) 34.5 % 36.0-45.0 MEAN CORPUSCULAR VOLUME (BEAKER) (test qucr=709) 95.8 fL 82.0-99.0 MEAN CORPUSCULAR HEMOGLOBIN (BEAKER) (test 31.8 pg 27.0-33.0 brma=681) MEAN CORPUSCULAR HEMOGLOBIN CONC (BEAKER) (test 33.2 GM/DL 32.0-36.0 cqwz=902) RED CELL DISTRIBUTION WIDTH (BEAKER) (test 11.9 % 10.3-14.2 exis=099) PLATELET COUNT (BEAKER) (test amvm=706) 121 K/CU MM 150-430 MEAN PLATELET VOLUME (BEAKER) (test jyqw=420) 9.6 fL 6.5-10.5 NUCLEATED RED BLOOD CELLS (BEAKER) (test 0 /100 WBC 0-0 cais=691) NEUTROPHILS RELATIVE PERCENT (BEAKER) (test 76 % jqlh=374) LYMPHOCYTES RELATIVE PERCENT (BEAKER) (test 13 % rlvp=853) MONOCYTES RELATIVE PERCENT (BEAKER) (test 8 % uxmg=252) EOSINOPHILS RELATIVE PERCENT (BEAKER) (test 4 % hcdk=993) BASOPHILS RELATIVE PERCENT (BEAKER) (test 0 % gteu=108) NEUTROPHILS ABSOLUTE COUNT (BEAKER) (test 4.99 K/ L 1.80-8.00 mtgu=389) LYMPHOCYTES ABSOLUTE COUNT (BEAKER) (test 0.83 K/ L 1.48-4.50 btod=400) MONOCYTES ABSOLUTE COUNT (BEAKER) (test 0.53 K/ L 0.00-1.30 prfa=028) EOSINOPHILS ABSOLUTE COUNT (BEAKER) (test 0.23 K/ L 0.00-0.50 mqok=316) BASOPHILS ABSOLUTE COUNT (BEAKER) (test 0.01 K/ L 0.00-0.20 utqh=794) 0.00
[2019-01-09] MEDS ORDERED: ACETAMINOPHEN 500 MG TAB PO PRN (21:59)
[2019-01-09] MEDS ORDERED: ONDANSETRON 4 MG/2 ML VIAL IV PRN (21:59)
[2019-01-09] MEDS ORDERED: MAGNESIUM HYDROXIDE 8% 30 ML PO PRN (21:59)
[2019-01-09] MEDS ORDERED: ZOLPIDEM TARTRATE 5 MG TABLET PO PRN (21:59)
[2019-01-09] MEDS ORDERED: Levofloxacin500mg IV 500 MG/100 ML BAG IV SCH (22:00)
[2019-01-09] MEDS ORDERED: MEPERIDINE HCL 25 MG/0.5 ML IV PRN (22:19)
[2019-01-09] MEDS: HYDROMORPHONE HCL 1 MG/ML INJ IV PRN (22:25)
[2019-01-09] MEDS ORDERED: Levofloxacin500mg IV 500 MG/100 ML BAG IV ONE (23:00)
[2019-01-09] MEDS: NA CHLORIDE 0.9% 1,000 ML IV SCH (23:31)
[2019-01-10] MEDS ORDERED: METRONIDAZOLE 500mg IVPB 500 MG/100 ML BAG IV SCH (01:00)
[2019-01-10] MEDS: METRONIDAZOLE 500mg IVPB 500 MG/100 ML BAG IV SCH ×4 (01:10→18:00)
[2019-01-10 01:58] VITALS: BMI 25.1
[2019-01-10 04:51] LABS: Absolute Lymphocytes (CBC) 0.3 K/uL (0.7-4.9); Absolute Monocytes 1.2 K/uL (0.1-1.3); Absolute Neutrophil 14.9 K/uL (1.8-8.0); Hematocrit 36.2 % (36.0-45.0); Lymphocytes % 1.7 % (15.3-44.8); MPV 11.8 fL (7.6-11.3); Monocytes % 7.6 % (3.3-12.3); RBC Red Blood Cell Count 3.91 M/uL (3.86-4.86)
[2019-01-10 05:18] LABS: Albumin 3.4 g/dL (3.4-5.0); Bilirubin Total 0.8 mg/dL (0.2-1.0); Magnesium 1.8 mg/dL (1.8-2.4); Phosphorus 5.1 mg/dL (2.5-4.9); Potassium 4.2 mmol/L (3.5-5.1); Protein, Total 7.5 g/dL (6.4-8.2)
[2019-01-10 05:43] LABS: Blood Morphology Comment NOT SEEN (NOT SEEN); Platelet Estimate ADEQ
[2019-01-10] MEDS ORDERED: NA CHLORIDE 0.9% 250 ML IV ONE (05:59)
[2019-01-10] MEDS: HYDROMORPHONE HCL 1 MG/ML INJ IV PRN ×3 (06:23→17:42)
[2019-01-10] MEDS ORDERED: glipiZIDE 5 MG TAB PO SCH (06:30)
[2019-01-10] MEDS ORDERED: GLUCAGON 1 MG/VIAL IM PRN (06:35)
[2019-01-10] MEDS ORDERED: D50W 25 GM/50 ML SYRINGE IV PRN (06:35)
[2019-01-10] MEDS ORDERED: MAGNESIUM SULFATE 1 gm IVPB 1 GM/100 ML BAG IV ONE (07:00)
[2019-01-10] MEDS ORDERED: PNEUMOCOCCAL VACCINE 0.5 ML IMVAC ONE (08:00)
[2019-01-10] MEDS ORDERED: INFLUENZA VACCINE (for 3y+) 0.5 ML DOSE IMVAC ONE (08:00)
[2019-01-10] MEDS: NA CHLORIDE 0.9% 1,000 ML IV SCH ×2 (08:00→18:00)
[2019-01-10] MEDS: LABETALOL HCL 100 MG TAB PO SCH ×2 (08:33→20:22)
[2019-01-10] MEDS: INSULIN -REGULAR HUMAN 50 UNIT/0.5 ML ML SQ SCH ×4 (08:33→20:30)
--- NOTE | 2019-01-10 08:38 | RAD REPORT ---
EXAM DESCRIPTION: US - Abdomen Exam Complete - 01/10/2019 7:46 am CLINICAL HISTORY: Abdominal pain COMPARISON: none FINDINGS: Liver has a mildly inhomogeneous echotexture The gallbladder is distended. Moderate amount of sludge. Gallbladder wall is thickened measuring 6 mi llimeters. Common bile duct measures 12 millimeters The pancreas head and proximal body normal in size and echotexture. Remainder the pancreas poorly see n secondary to overlying bowel gas. The right kidney measures 10 centimeters with a mildly increased echotexture. The left kidney measures 9 centimeters with a mildly increased echotexture. The spleen measures 8 centimeters. The abdominal aorta and inferior vena cava appear unremarkable IMPRESSION: Distended gallbladder with thickened wall may indicate cholecystitis. Moderate gallbladd er sludge Dilated common bile duct may be secondary to a stone within the duct, stricture or periampullary neop lasm Mildly inhomogeneous hepatic echotexture may indicate parenchymal disease Mildly increased renal echotexture may indicate parenchymal disease
[2019-01-10] MEDS ORDERED: LABETALOL HCL 100 MG TAB PO SCH (09:00)
[2019-01-10] MEDS ORDERED: FUROSEMIDE 40 MG TABLET PO SCH (09:00)
[2019-01-10] MEDS ORDERED: ENOXAPARIN 30 MG/0.3 ML SQ SCH (09:00)
[2019-01-10] MEDS ORDERED: SPIRONOLACTONE 25 MG TABLET PO SCH (09:00)
--- NOTE | 2019-01-10 10:32 | P.HP ---
Certification for Inpatient Patient admitted to: Inpatient With expected LOS: >2 Midnights Patient will require the following post-hospital care: None Practitioner: I am a practitioner with admitting privileges, knowledge of patient current condition, hospital course, and medical plan of care. Services: Services provided to patient in accordance with Admission requirements found in Title 42 Section 412.3 of the Code of Federal Regulations Patient History Date of Service: 01/09/19 Reason for admission: Acute cholecystitis History of Present Illness: Patient is a 73-year-old female who has a history of coronary artery disease status post three-vessel CABG a couple years ago. She is done well since that time. Yesterday she started having severe abdominal pain. Normally she does all lower own activities of daily living. She lives by herself. She has family who lives close by. The pain was in the right upper quadrant and she went to the local ER at [facility]. There they found her gallbladder to be distended quite significantly. She also had an area that was 10 x 8 x 6 cm. This was located in the left lower quadrant and it projected towards the umbilicus. Patient was transferred to our hospital for further evaluation. Patient will as general surgery consultation. Continue on IV antibiotics and IV hydration. Patient has renal insufficiency and will consult nephrology, Dr. Arce. Allergies No Known Allergies Allergy (Verified 05/15/17 13:44) Home Medications: Atorvastatin Calcium [Lipitor] 40 mg PO BEDTIME 01/09/19 Furosemide 20 mg PO DAILY 01/09/19 Labetalol HCl [Trandate] 200 mg PO BID 01/09/19 Spironolactone 25 mg PO DAILY 01/09/19 glipiZIDE [Glucotrol*] 5 mg PO DAILY 01/09/19 - Past Medical/Surgical History Has patient received pneumonia vaccine in the past: No Diabetic: Yes -: Type 2 diabetes -: HTN -: Hyperlipidemia -: CHF -: Coronary artery disease -: CABG Triple May 2018 -: R eye cataract removal - Family History Father Family History: Reviewed- Non-Contributory - Social History Smoking Status: Never smoker Place of Residence: Home Review of Systems 10-point ROS is otherwise unremarkable Physical Examination - Vital Signs Temperature: 98.4 F Blood Pressure: 124/64 Pulse: 88 Respirations: 16 Pulse Ox (%): 94 - Physical Exam General: Alert, In no apparent distress, Oriented x3 HEENT: Atraumatic, PERRLA, Mucous membr. moist/pink, EOMI, Sclerae nonicteric Neck: Supple, 2+ carotid pulse no bruit, No LAD, Without JVD or thyroid abnormality Respiratory: Clear to auscultation bilaterally, Normal air movement Cardiovascular: Regular rate/rhythm, Normal S1 S2, No murmurs Gastrointestinal: Normal bowel sounds, Soft and benign, Non-distended, Tenderness, Masses (Left lower quadrant) Musculoskeletal: No clubbing, No swelling, No tenderness Integumentary: No rashes Neurological: Normal gait, Normal speech, Normal strength at 5/5 x4 extr, Normal tone, Sensation intact, Cranial nerves 3-12 intact, Normal affect Lymphatics: No axilla or inguinal lymphadenopathy - Studies Laboratory Data (last 24 hrs) 01/10/19 04:04: Sodium 135 L, Potassium 4.2, BUN 51 H, Creatinine 1.76 H, Glucose 311 H, Phosphorus 5.1 H, Magnesium 1.8, Total Bilirubin 0.8, AST 13 L, ALT 19, Alkaline Phosphatase 98 01/10/19 04:04: WBC 16.4 H, Hgb 12.4, Hct 36.2, Plt Count 134 L Assessment & Plan - Problems (Diagnosis) (1) Acute cholecystitis Current Visit: Yes Status: Acute (2) Abdominal wall fluid collections Current Visit: Yes Status: Acute (3) History of coronary artery disease Current Visit: Yes Status: Acute (4) History of coronary artery bypass graft Current Visit: Yes Status: Acute (5) HTN (hypertension) Current Visit: Yes Status: Acute (6) DM2 (diabetes mellitus, type 2) Current Visit: Yes Status: Acute - Plan 1. Continue with IV hydration 2. Continue with IV antibiotics 3. Continue with pain control 4. NPO 5. General surgery consultation; abdominal ultrasound pending 6. Serial H&H, and we will monitor CBC, BMP, LFTs and lipase along with electrolytes. 7. GI and DVT prophylaxis Discharge Plan: Home Plan to discharge in: Greater than 2 days - Advance Directives Does patient have a Living Will: No Does patient have a Durable POA for Healthcare: No - Code Status/Comfort Care Code Status Assessed: Yes Code Status: Full Code Critical Care: No Time Spent Managing PTS Care (In Minutes): 45
[2019-01-10 10:43] LABS: Urine Appearance CLEAR; Urine Bilirubin NEGATIVE (NEG); Urine Blood TRACE (NEG); Urine Color YELLOW; Urine Glucose 2+ (NEG); Urine Protein 2+ (NEG); Urine Urobilinogen 0.2 mg/dL (0.2-1.0)
[2019-01-10 10:46] VITALS: O2SAT 94
--- NOTE | 2019-01-10 10:48 | RAD REPORT ---
EXAM DESCRIPTION: MRI - Cholangiogram - 01/10/2019 10:12 am CLINICAL HISTORY: gall stones Right upper quadrant pain COMPARISON: Abdomen Exam Complete dated 01/10/2019; CT ABD PELVIS W WO CONTRAST dated 05/08/2015 FINDINGS: Three-dimensional MRCP was performed using maximum intensity projection reconstruction on the same work station. The gallbladder appears moderately distended. Mild to moderate surrounding fluid and inflammatory goldy nges are present in the right lower quadrant. Common bile duct appears dilated as it traverses the pancreatic head. There is a meniscus sign seen i n the distal common bile duct likely indicating choledocholithiasis. Mildly prominent pancreatic duct . IMPRESSION: Dilated gallbladder with surrounding inflammatory changes suggest acute cholecystitis. Dilated common bile duct with a meniscus seen in the region of the distal common bile duct likely rep resenting choledocholithiasis. Consider followup ERCP.
[2019-01-10 11:07] LABS: Urine Microscopic Reflex ORDER UMIC
[2019-01-10 11:19] LABS: Urine Bacteria <20 /HPF (<20); Urine Culture Reflex Order REFLEXED; Urine RBC <5 /HPF (NONE SEEN)
--- NOTE | 2019-01-10 12:15 | ECHO ---
HEIGHT: 5 ft 3 in WEIGHT: 142 lb 0 oz DATE OF STUDY: 01/10/[address]: Chasity Velázquez MD 2-DIMENSIONAL: YES M.MODE: YES DOPPLER: YES COLOR FLOW: YES TDS: NO PORTABLE: NO DEFINITY: NO BUBBLE STUDY: NO DIAGNOSIS: LEFT VENTRICULAR EJECTION FRACTION/ PREOP CARDIAC HISTORY: CATHERIZATION: YES SURGERY: YES PROSTHETIC VALVE: NO PACEMAKER: NO MEASUREMENTS (cm) DIASTOLIC (NORMALS) SYSTOLIC (NORMALS) IVSd 1.6 (0.6-1.2) LA Diam 3.7 (1.9-4.0) LVEF 60-69% LVIDd 3.8 (3.5-5.7) LVIDs 2.7 (2.0-3.5) %FS % LVPWd 1.5 (0.6-1.2) Ao Diam 2.5 (2.0-3.7) 2 DIMENSIONAL ASSESSMENT: RIGHT ATRIUM: NORMAL LEFT ATRIUM: DILATED RIGHT VENTRICLE: NORMAL LEFT VENTRICLE: NORMAL TRICUSPID VALVE: NORMAL MITRAL VALVE: MITRAL ANNULAR CALCIFICATION PULMONIC VALVE: NORMAL AORTIC VALVE: SCLEROSIS PERICARDIAL EFFUSION: NONE AORTIC ROOT: NORMAL LEFT VENTRICULAR WALL MOTION: NORMAL. DOPPLER/COLOR FLOW: MILD TRICUSPID REGURGITATION. NORMAL RIGHT VENTRICULAR SYSTOLIC PRESSURE. COMMENTS: NORMAL LEFT VENTRICULAR EJECTION FRACTION. DILATED LEFT ATRIUM. MITRAL ANNULAR CALCIFICATION. AORTIC SCLEROSIS WITH NO AORTIC STENOSIS OR AORTIC REGURGITATION. MILD TRICUSPID REGURGITATION. TECHNOLOGIST: REBA GARAY
[2019-01-10 13:20] VITALS: TEMP 97.7
--- NOTE | 2019-01-10 16:17 | P.SSS ---
Patient History Date of Service: 01/10/19 Reason for admission: Acute cholecystitis History of Present Illness: Patient is a 73-year-old female who has a history of coronary artery disease status post three-vessel CABG a couple years ago. She is done well since that time. Yesterday she started having severe abdominal pain. Normally she does all lower own activities of daily living. She lives by herself. She has family who lives close by. The pain was in the right upper quadrant and she went to the local ER at [facility]. There they found her gallbladder to be distended quite significantly. She also had an area that was 10 x 8 x 6 cm. This was located in the left lower quadrant and it projected towards the umbilicus. Patient was transferred to our hospital for further evaluation. Patient will as general surgery consultation. Continue on IV antibiotics and IV hydration. Patient has renal insufficiency and will consult nephrology, Dr. Arce. Allergies No Known Allergies Allergy (Verified 05/15/17 13:44) Home Medications: Atorvastatin Calcium [Lipitor] 40 mg PO BEDTIME 01/09/19 Furosemide 20 mg PO DAILY 01/09/19 Labetalol HCl [Trandate] 200 mg PO BID 01/09/19 Spironolactone 25 mg PO DAILY 01/09/19 glipiZIDE [Glucotrol*] 5 mg PO DAILY 01/09/19 - Past Medical/Surgical History Has patient received pneumonia vaccine in the past: No Diabetic: Yes -: Type 2 diabetes -: HTN -: Hyperlipidemia -: CHF -: Coronary artery disease -: CABG Triple May 2018 -: R eye cataract removal - Social History Smoking Status: Never smoker Place of Residence: Home Review of Systems 10-point ROS is otherwise unremarkable Physical Examination - Vital Signs Temperature: 97.7 F Blood Pressure: 105/56 Pulse: 73 Respirations: 16 Pulse Ox (%): 94 - Physical Exam General: Alert, In no apparent distress HEENT: Atraumatic, PERRLA, Mucous membr. moist/pink, EOMI, Sclerae nonicteric Neck: Supple, 2+ carotid pulse no bruit, No LAD, Without JVD or thyroid abnormality Respiratory: Clear to auscultation bilaterally, Normal air movement Cardiovascular: Regular rate/rhythm, Normal S1 S2 Gastrointestinal: Normal bowel sounds, No tenderness Musculoskeletal: No tenderness Integumentary: No rashes Neurological: Normal gait, Normal speech, Normal strength at 5/5 x4 extr, Normal tone, Normal affect Lymphatics: No axilla or inguinal lymphadenopathy - Studies Laboratory Data (last 24 hrs) 01/10/19 04:04: Sodium 135 L, Potassium 4.2, BUN 51 H, Creatinine 1.76 H, Glucose 311 H, Phosphorus 5.1 H, Magnesium 1.8, Total Bilirubin 0.8, AST 13 L, ALT 19, Alkaline Phosphatase 98 01/10/19 04:04: WBC 16.4 H, Hgb 12.4, Hct 36.2, Plt Count 134 L - Diagnosis (Problem(s)) (1) Choledocholithiasis Current Visit: Yes Status: Acute (2) Acute cholecystitis Current Visit: Yes Status: Acute (3) DM2 (diabetes mellitus, type 2) Current Visit: Yes Status: Chronic Qualifiers: Diabetes mellitus terminal gauger supervisor insulin use: with terminal gauger supervisor use Diabetes mellitus complication status: without complication Qualified Code(s): E11.9 - Type 2 diabetes mellitus without complications; Z79.4 - alf (current) use of insulin (4) HTN (hypertension) Current Visit: Yes Status: Chronic Qualifiers: Hypertension type: essential hypertension Qualified Code(s): I10 - Essential (primary) hypertension (5) History of coronary artery bypass graft Current Visit: Yes Status: Chronic (6) History of coronary artery disease Current Visit: Yes Status: Chronic Treatment Summary: Overall during the hospital stay patient remained state The patient was initially admitted to the hospital for acute cholecystitis. Abdominal ultrasound was concerning 1st common bowel duct dilation. Patient did not have any elevated LFTs and remained stable while here in the hospital. Was started on IV fluids and IV antibiotics. MRCP was done. MRCP was consistent with choledocholithiasis and this patient was transferred to a higher level of care for ERCP patient was accepted at [facility] and was transferred to the hospitalist team for further care. - Disposition Disposition: ROUTINE DISCHARGE
[2019-01-10 20:28] VITALS: BP 118/55
[2019-01-10] MEDS ORDERED: Levofloxacin 250mg IV 250 MG/50 ML BAG IV SCH (21:00)
[2019-01-10] MEDS ORDERED: ATORVASTATIN 40 MG TAB PO SCH (21:00)
--- NOTE | 2019-01-10 21:15 | P.CNS ---
Date of Consult: 01/10/19 Reason for Consult: FALLON/ CKD III. Requesting Physician: Linda Hallman Chief Complaint: Acute cholecystitis History of Present Illness: Patient is a 73-year-old female who has a history of coronary artery disease status post three-vessel CABG a couple years ago. She is done well since that time. Yesterday she started having severe abdominal pain. Normally she does all lower own activities of daily living. She lives by herself. She has family who lives close by. The pain was in the right upper quadrant and she went to the local ER at [facility]. There they found her gallbladder to be distended quite significantly. She also had an area that was 10 x 8 x 6 cm. This was located in the left lower quadrant and it projected towards the umbilicus. Patient was transferred to our hospital for further evaluation. Patient will as general surgery consultation. Continue on IV antibiotics and IV hydration. Allergies No Known Allergies Allergy (Verified 05/15/17 13:44) Home medications list reviewed: Yes Home Medications: Atorvastatin Calcium [Lipitor] 40 mg PO BEDTIME 01/09/19 Furosemide 20 mg PO DAILY 01/09/19 Labetalol HCl [Trandate*] 200 mg PO BID 01/09/19 Spironolactone 25 mg PO DAILY 01/09/19 glipiZIDE [Glucotrol*] 5 mg PO DAILY 01/09/19 - Past Medical/Surgical History Diabetic: Yes -: Type 2 diabetes -: HTN -: Hyperlipidemia -: CHF -: Coronary artery disease -: CABG Triple May 2018 -: R eye cataract removal - Family History Father Family History: Reviewed- Non-Contributory - Social History Place of Residence: Home Review of Systems 10-point ROS is otherwise unremarkable Gastrointestinal: Nausea, Abdominal Pain Physical Examination Temp Pulse Resp BP Pulse Ox 97.7 F 86 16 118/55 L 94 01/10/19 16:17 01/10/19 20:22 01/10/19 16:17 01/10/19 20:22 01/10/19 16:17 General: In no apparent distress, Oriented x3, Cooperative HEENT: Atraumatic, Normocephalic Neck: Supple Respiratory: Clear to auscultation bilaterally, Normal air movement Cardiovascular: No edema, Regular rate/rhythm, No rubs Gastrointestinal: Hypoactive, No guarding, Tenderness Musculoskeletal: No clubbing, No contractures, No tenderness Integumentary: No rashes, No cyanosis Neurological: Normal speech Laboratory Data (last 24 hrs) 01/10/19 04:04: Sodium 135 L, Potassium 4.2, BUN 51 H, Creatinine 1.76 H, Glucose 311 H, Phosphorus 5.1 H, Magnesium 1.8, Total Bilirubin 0.8, AST 13 L, ALT 19, Alkaline Phosphatase 98 01/10/19 04:04: WBC 16.4 H, Hgb 12.4, Hct 36.2, Plt Count 134 L Imagings Data: EXAM DESCRIPTION: US - Abdomen Exam Complete - 01/10/2019 7:46 am CLINICAL HISTORY: Abdominal pain COMPARISON: none FINDINGS: Liver has a mildly inhomogeneous echotexture The gallbladder is distended. Moderate amount of sludge. Gallbladder wall is thickened measuring 6 millimeters. Common bile duct measures 12 millimeters The pancreas head and proximal body normal in size and echotexture. Remainder the pancreas poorly seen secondary to overlying bowel gas. The right kidney measures 10 centimeters with a mildly increased echotexture. The left kidney measures 9 centimeters with a mildly increased echotexture. The spleen measures 8 centimeters. The abdominal aorta and inferior vena cava appear unremarkable IMPRESSION: Distended gallbladder with thickened wall may indicate cholecystitis. Moderate gallbladder sludge Dilated common bile duct may be secondary to a stone within the duct, stricture or periampullary neoplasm Mildly inhomogeneous hepatic echotexture may indicate parenchymal disease Mildly increased renal echotexture may indicate parenchymal disease Conclusions/Impression: A/ Hyponatremia. FALLON/ CKD III. DM II with CKD. Acute cholecytitis/ Choledocholithiasis. P/ Continue current POC and Medications. Start IVF. Agree with abx. NPO. No NSAIDs. AM labs. Daily weight. Plan for transfer to [facility] for ERCP.
[2019-01-10] MEDS ORDERED: NA CHLORIDE 0.9% 1,000 ML IV SCH (22:00)
== END 2019-01-10 20:46 | disposition short-term general hospital (02) | DRG 445 ==
LOC: 4TH 21:03 → OBSVTOIN 21:08
PROVIDERS: ADMIT Hospitalist; ATTEND Family Medicine
DX: K80.42 Calculus of bile duct with acute cholecystitis without obstruction (principal); E87.1 Hypo-osmolality and hyponatremia; N17.9 Acute kidney failure, unspecified; I25.10 Atherosclerotic heart disease of native coronary artery without angina pectoris; Z95.1 Presence of aortocoronary bypass graft; Z79.4 Long term (current) use of insulin; I12.9 Hypertensive chronic kidney disease with stage 1 through stage 4 chronic kidney disease, or unspecified chronic kidney disease; E11.22 Type 2 diabetes mellitus with diabetic chronic kidney disease; N18.3 Chronic kidney disease, stage 3 (moderate)
CPT/HCPCS: 36415; 74181; 76700; 80053; 81003; 81015; 82962; 83735; 84100; 85025; 87086; 87088; 93306; J1170; J2175; J3475; J7030

== ENCOUNTER 2019-01-23 11:05 | Inpatient (IN) | payer OTHER ==
--- OUTSIDE RECORDS SUMMARY | 2019-01-23 11:09 | XMS REPORT | Clinical Summary ---
:1945 Author Organization [facility] Address [address] [place] [address] Care Team Providers Name Role Phone Rupert [...] INFLUENZA VACCINE 07/30/2018 Results Not on fileafter 01/22/2018 Insurance Payer Benefit Plan / Subscriber ID Type Phone Address Group [employer] - MEDICARE [employer] MEDICARE HMO xxxxxxxx [phone] [address] [employer] C[employer] POS PPO [place] [id number] Advance Directives For more information, please contact:[address] [place], [place] [phone] Code Status Date Activated Date Inactivated Comments Full Code 05/22/2017 11:38 AM 05/31/2017 5:35 PM This code status was determined by: Patient
--- OUTSIDE RECORDS SUMMARY | 2019-01-23 11:09 | XMS REPORT | Clinical Summary ---
:1945 Author Organization [facility] Address [address] [place] [address] Care Team Providers Name Role Phone Saima Nguyen MD Primary Care Provider Allergies No Known Allergies Medications Medication Sig Dispensed Refills Start Date End Date Status atorvastatin Take 40 mg by 0 Active (LIPITOR) 40 MG mouth nightly. tablet furosemide (LASIX) Take 20 mg by 0 Active 20 mg tablet mouth daily. spironolactone Take 25 mg by 0 Active (ALDACTONE) 25 MG mouth daily. tablet glipiZIDE Take 5 mg by 0 Active (GLUCOTROL) 5 MG mouth daily. tablet labetalol Take 1 tablet 60 tablet 0 01/15/2019 Active (NORMODYNE) 300 MG (300 mg total) 9 tablet by mouth 2 (two) times a day for 30 days. L. Take 2 60 each 0 01/16/2019 Active acidophilus,casei,rh capsules by 9 amnosus (BIO K PLUS) mouth daily 50 billion cell for 30 days. capsule,delayed release(DR/EC) capsule NIFEdipine XL Take 2 tablets 60 tablet 0 01/15/2019 Active (PROCARDIA XL) 30 MG (60 mg total) 9 24 hr tablet by mouth daily for 30 days. sennosides-docusate Take 1 tablet 60 tablet 0 01/15/2019 Active sodium (SENOKOT-S) by mouth 2 9 8.6-50 mg per tablet (two) times a day for 30 days. labetalol Take 200 mg by 0 Discontinued (NORMODYNE) 200 MG mouth 2 (two) 9 tablet times a day. amoxicillin-pot Take 1 tablet 10 tablet 0 01/15/2019 clavulanate by mouth 2 9 (AUGMENTIN) 875-125 (two) times a mg per tablet day for 5 days. Active Problems Problem Noted Date Choledocholithiasis 01/10/2019 Encounters Date Type Specialty Care Team Description 01/12/2019 Anesthesia Event General Surgery Larissa Shields MD 01/12/2019 Surgery General Surgery Munir Gonzalez D., MD LAPAROSCOPIC 01/11/2019 Anesthesia Event Gastroenterology Linda Miller CRNA 01/11/2019 Surgery Gastroenterology Matty, REA cOonnor MD 01/10/2019 [facility], [facility] Choledocholithiasis - Encounter Medicine MD Haley (Primary Dx) 01/15/2019 after 01/22/2018 Social History Tobacco Use Types Packs/Day Years Used Date Never Smoker Smokeless Tobacco: Never Used Alcohol Use Drinks/Week oz/Week Comments No Alcohol Habits Answer Date Recorded How often do you have a drink containing alcohol? Never 01/10/2019 How many drinks containing alcohol do you have on a typical Not asked day when you are drinking? How often do you have six or more drinks on one occasion? Not asked Sex Assigned at Date Recorded Not on file Job Start Date Occupation Industry Not on file Not on file Not on file Travel History Travel Start Travel End No recent travel history available. Last Filed Vital Signs Vital Sign Reading Time Taken Blood Pressure 136/60 01/15/2019 10:42 AM CDT Pulse 73 01/15/2019 11:23 AM CDT Temperature 36.1 C (97 F) 01/15/2019 8:09 AM CDT Respiratory Rate 18 01/15/2019 8:09 AM CDT Oxygen Saturation 98% 01/15/2019 11:23 AM CDT Inhaled Oxygen Concentration - - Weight 69.9 kg (154 lb) 01/15/2019 5:20 AM CDT Height 154.9 cm (5' 1") 01/10/2019 10:21 PM CDT Body Mass Index 29.1 01/15/2019 5:20 AM CDT Plan of Treatment Health Maintenance Due Date Last Done Comments BREAST CANCER SCREENING 1995 COLON CANCER SCREENING 1995 SHINGLES VACCINES (#1) 1995 65+ PNEUMOCOCCAL VACCINE (1 of 2 - PCV13) 2010 PNEUMOCOCCAL POLYSACCHARIDE VACCINE AGE 65 AND OVER 2010 INFLUENZA VACCINE 05/30/2018 Procedures Procedure Name Priority Date/Time Associated Comments Diagnosis POC GLUCOSE Routine 01/15/2019 8:10 Results for this AM CDT procedure are in the results section. ESTIMATED GFR Routine 01/15/2019 5:45 Results for this AM CDT procedure are in the results section. COMPREHENSIVE Routine 01/15/2019 5:45 Results for this METABOLIC PANEL AM CDT procedure are in the results section. POC GLUCOSE Routine 01/14/2019 9:46 Results for this PM CDT procedure are in the results section. POC GLUCOSE Routine 01/14/2019 5:28 Results for this PM CDT procedure are in the results section. ECG 12-LEAD Routine 01/14/2019 2:51 Results for this PM CDT procedure are in the results section. TROPONIN Routine 01/14/2019 2:45 Results for this PM CDT procedure are in the results section. POC GLUCOSE Routine 01/14/2019 12:41 Results for this PM CDT procedure are in the results section. POC GLUCOSE Routine 01/14/2019 7:38 Results for this AM CDT procedure are in the results section. ESTIMATED GFR Routine 01/14/2019 4:45 Results for this AM CDT procedure are in the results section. MAGNESIUM LEVEL Routine 01/14/2019 4:45 Results for this AM CDT procedure are in the results section. HC COMPLETE BLD COUNT Routine 01/14/2019 4:45 Results for this W/AUTO DIFF AM CDT procedure are in the results section. COMPREHENSIVE Routine 01/14/2019 4:45 Results for this METABOLIC PANEL AM CDT procedure are in the results section. POC GLUCOSE Routine 01/13/2019 8:50 Results for this PM CDT procedure are in the results section. POC GLUCOSE Routine 01/13/2019 4:41 Results for this PM CDT procedure are in the results section. POC GLUCOSE Routine 01/13/2019 12:07 Results for this PM CDT procedure are in the results section. POC GLUCOSE Routine 01/13/2019 7:41 Results for this AM CDT procedure are in the results section. MANUAL DIFFERENTIAL Routine 01/13/2019 5:10 Results for this AM CDT procedure are in the results section. ESTIMATED GFR Routine 01/13/2019 5:10 Results for this AM CDT procedure are in the results section. BASIC METABOLIC PANEL Routine 01/13/2019 5:10 Results for this AM CDT procedure are in the results section. CBC WITH PLATELET AND Routine 01/13/2019 5:10 Results for this DIFFERENTIAL AM CDT procedure are in the results section. POC GLUCOSE Routine 01/12/2019 11:22 Results for this PM CDT procedure are in the results section. POC GLUCOSE Routine 01/12/2019 10:04 Results for this PM CDT procedure are in the results section. POC GLUCOSE Routine 01/12/2019 8:09 Results for this PM CDT procedure are in the results section. POC GLUCOSE Routine 01/12/2019 8:08 Results for this PM CDT procedure are in the results section. POC GLUCOSE Routine 01/12/2019 4:26 Results for this PM CDT procedure are in the results section. POC GLUCOSE Routine 01/12/2019 12:03 Results for this PM CDT procedure are in the results section. POC GLUCOSE Routine 01/12/2019 10:47 Results for this AM CDT procedure are in the results section. 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: Allen Trejo CRNA Performed by: resident/HIGH SCHO[employer] SOCIAL STUDIES TEACHER/AA Preoxygenated with 100% O2: Yes C-spine Precautions Maintained Throughout: No Mask Ventilation: Easy mask Final Airway Type: Endotracheal airway Final Endotracheal Airway: ETT Cuffed: Yes Technique Used: Direct laryngoscopy Devices/Methods Used in Placement: Intubating stylet Insertion Site: Oral Blade Type: Arnold Laryngoscope Blade/Videolaryngoscope Blade Size: 2 ETT Size (mm): 7.0 Cuff at minimum occlusion pressure: Yes Measured from: Lips ETT to Lips (cm): 21 Placement Verified by: CO2 detection, direct visualization and equal breath sounds Laryngoscopic view: Grade I - full view of glottis Rapid Sequence Induction (RSI): No Modified RSI: No Number of Attempts at Approach: 1 Pt denitrogenated, Eyes taped after LOC, BMV established, DLX1, Grade I view , ETT threaded through vocal cords with ease, +ETCO2, Equal and bilateral breath sounds, ETT secured with silk tape. Teeth/lips/gums/VC unchanged from baseline. SURGICAL PATHOLOGY Routine 01/12/2019 7:39 Results for this REQUEST AM CDT procedure are in the results section. TYPE AND SCREEN Routine 01/12/2019 6:40 Results for this AM CDT procedure are in the results section. ESTIMATED GFR Routine 01/12/2019 4:45 Results for this AM CDT procedure are in the results section. BASIC METABOLIC PANEL Routine 01/12/2019 4:45 Results for this AM CDT procedure are in the results section. HC COMPLETE BLD COUNT Routine 01/12/2019 4:45 Results for this W/AUTO DIFF AM CDT procedure are in the results section. POC GLUCOSE Routine 01/11/2019 9:25 Results for this PM CDT procedure are in the results section. POC GLUCOSE Routine 01/11/2019 3:20 Results for this PM CDT procedure are in the results section. OR FL < 1 HOUR Routine 01/11/2019 2:30 Results for this PM CDT procedure are in the results section. ERCP WITH FLUORO 01/11/2019 1:20 Choledocholithiasis PM CDT POC GLUCOSE Routine 01/11/2019 11:28 Results for this AM CDT procedure are in the results section. ECG 12-LEAD STAT 01/11/2019 9:48 Results for this AM CDT procedure are in the results section. POC GLUCOSE Routine 01/11/2019 8:24 Results for this AM CDT procedure are in the results section. URINE DRUGS OF ABUSE Routine 01/11/2019 6:45 Results for this SCREEN AM CDT procedure are in the results section. MANUAL DIFFERENTIAL Routine 01/11/2019 5:00 Results for this AM CDT procedure are in the results section. THYROID STIMULATING Routine 01/11/2019 5:00 Results for this HORMONE AM CDT procedure are in the results section. ESTIMATED GFR Routine 01/11/2019 5:00 Results for this AM CDT procedure are in the results section. AMYLASE LEVEL Routine 01/11/2019 5:00 Results for this AM CDT procedure are in the results section. B NATRIURETIC PEPTIDE Routine 01/11/2019 5:00 Results for this AM CDT procedure are in the results section. CREATINE KINASE, TOTAL Routine 01/11/2019 5:00 Results for this (CPK) AM CDT procedure are in the results section. COMPREHENSIVE Routine 01/11/2019 5:00 Results for this METABOLIC PANEL AM CDT procedure are in the results section. HEMOGLOBIN A1C Routine 01/11/2019 5:00 Results for this AM CDT procedure are in the results section. LACTIC ACID LEVEL Routine 01/11/2019 5:00 Results for this AM CDT procedure are in the results section. LIPASE LEVEL Routine 01/11/2019 5:00 Results for this AM CDT procedure are in the results section. LIPID PANEL Routine 01/11/2019 5:00 Results for this AM CDT procedure are in the results section. MAGNESIUM LEVEL Routine 01/11/2019 5:00 Results for this AM CDT procedure are in the results section. PHOSPHORUS LEVEL Routine 01/11/2019 5:00 Results for this AM CDT procedure are in the results section. PREALBUMIN LEVEL Routine 01/11/2019 5:00 Results for this AM CDT procedure are in the results section. THYROID STIMULATING Routine 01/11/2019 5:00 Results for this HORMONE AM CDT procedure are in the results section. T4, FREE Routine 01/11/2019 5:00 Results for this AM CDT procedure are in the results section. PARTIAL THROMBOPLASTIN Routine 01/11/2019 5:00 Results for this TIME (PTT) AM CDT procedure are in the results section. CBC WITH PLATELET AND Routine 01/11/2019 5:00 Results for this DIFFERENTIAL AM CDT procedure are in the results section. PROTHROMBIN TIME WITH Routine 01/11/2019 5:00 Results for this INR AM CDT procedure are in the results section. MRI CHOLANGIOGRAM WO Routine 01/11/2019 1:16 Results for this CONTRAST AM CDT procedure are in the results section. after 01/22/2018 Results POC glucose (01/15/2019 8:10 AM CDT)Only the most recent of20 resultswithin the time period is included. POC glucose 104 (H) 65 - 99 mg/dL [facility] Comment: HOSPITAL RN Notified Meter ID: [id number] [place] Attendant: Tremaine Reardon Performing Organization Address City/State/Zipcode Phone Number [facility] DEPARTMENT OF PATHOLOGY [address] [place] [address] AND GENOMIC MEDICINE [facility] [address] [place] [address] HOSPITAL Estimated GFR (01/15/2019 5:45 AM CDT)Only the most recent of5 resultswithin the time period is included. Estimated GFR 45 (A) mL/min/1.73 m2 [facility] CatergoryUnitsInterpretation G1 >=90 Normal or high G2 60-89Mildly decreased [id number] to moderately decreased R4q27-16Pwhpmfredv to severely decreased G4 15-29Severely decreased G5 <15Kidney failure The eGFR was calculated using the Chronic Kidney Disease Epidemiology Collaboration (CKD-EPI) equation. Interpretation is based on recommendations of the National Kidney Foundation-Kidney Disease Outcomes Quality Initiative (NKF-KDOQI) published in 2014. Specimen Plasma specimen Performing Organization Address City/State/Zipcode Phone Number [facility] DEPARTMENT OF PATHOLOGY [address] [place] [address] AND GENOMIC MEDICINE [facility] [id number] Comprehensive metabolic panel (01/15/2019 5:45 AM CDT)Only the most recent of3 resultswithin the time period is included. Sodium 139 135 - 148 mEq/L [facility] Potassium 3.8 3.5 - 5.0 mEq/L [facility] Chloride 105 98 - 112 mEq/L [facility] CO2 23 (L) 24 - 31 mEq/L [facility] Anion gap 11@ANIO 7 - 15 mEq/L [facility] BUN 43 (H) 8 - 23 mg/dL [facility] Creatinine 1.20 (H) 0.50 - 0.90 mg/dL [facility] Glucose 109 (H) 65 - 99 mg/dL [facility] Calcium 8.9 8.8 - 10.2 mg/dL [facility] Protein 5.5 (L) 6.3 - 8.3 g/dL [facility] Albumin 2.3 (L) 3.5 - 5.0 g/dL [facility] A/G ratio 0.7 0.7 - 3.8 [facility] Alkaline phosphatase 60 35 - 104 U/L [facility] AST 21 10 - 35 U/L [facility] ALT 27 5 - 50 U/L [facility] Total bilirubin 0.3 0.2 - 1.2 mg/dL [facility] Specimen Plasma specimen Performing Organization Address [facility] [[email or web address] Phone Number [facility] DEPARTMENT OF PATHOLOGY [id number] [place] [address] ECG 12 lead (01/14/2019 2:51 PM CDT)Only the most recent of2 resultswithin the time period is included. Ventricular rate 70 [facility] Atrial rate 70 [facility] FL interval 138 [facility] QRSD interval 104 [facility] QT interval 386 [facility] QTC interval 416 [facility] P axis 1 77 [facility] QRS axis 1 -17 [facility] T wave axis 143 [facility] EKG impression Normal sinus rhythm-Left ventricular [facility] MUSE hypertrophy with repolarization abnormality-Abnormal ECG- Narrative Performed At Performing Organization Address [facility] [[email or web address] Phone Number [facility] MUSE [address] [place] [address] Troponin (01/14/2019 2:45 PM CDT) Troponin <0.30 0.00 - 0.30 ng/mL [facility] Comment: HOSPITAL 0.11 - 1.49 ng/mlMay indicate increased risk of acute coronary syndrome. >=1.5 ng/mlConsistent with acute myocardial infarction. The diagnostic value of a single normal or non-diagnostic result is questionable.Serial samples at 2-6 hour intervals are required to rule out acute myocardial injury. Specimen Plasma specimen Performing Organization Address City/[facility]/Zipcode Phone Number [facility] DEPARTMENT OF PATHOLOGY [id number] [place] [address] CBC with platelet and differential (01/14/2019 4:45 AM CDT)Only the most recent of4 resultswithin the time period is included. WBC 12.7 (H) 4.5 - 11.0 k/uL [facility] RBC 3.26 (L) 4.20 - 5.50 m/uL [facility] HGB 10.0 (L) 12.0 - 16.0 g/dL [facility] HCT 31.4 (L) 37.0 - 47.0 % [facility] MCV 96.3 82.0 - 100.0 fL [facility] MCH 30.7 27.0 - 34.0 pg [facility] MCHC 31.8 31.0 - 37.0 g/dL [facility] RDW - SD 48.2 37.0 - 55.0 fL [facility] MPV 13.2 (H) 6.9 - 11.0 fL [facility] Platelet count 133 (L) 150 - 400 K/uL [facility] Nucleated RBC 0.00 /100 WBC [facility] Neutrophils 87.9 (H) 39.0 - 69.0 % [facility] Lymphocytes 3.9 (L) 25.0 - 45.0 % [facility] Monocytes 7.3 0.0 - 10.0 % [facility] Eosinophils 0.2 0.0 - 5.0 % [facility] Basophils 0.2 0.0 - 1.0 % [facility] Immature granulocytes 0.5 0.0 - 1.0 % [facility] Specimen Blood Performing Organization Address City/[facility] [[email or web address] Phone Number [facility] DEPARTMENT OF PATHOLOGY [address] [place] [address] [place] [address] HOSPITAL Magnesium level (01/14/2019 4:45 AM CDT)Only the most recent of2 resultswithin the time period is included. Magnesium 2.3 1.6 - 2.4 mg/dL [facility] Specimen Plasma specimen Performing Organization Address City/[facility]/Zipcode Phone Number [facility] DEPARTMENT OF PATHOLOGY [address] [place] [address] [place] [address] HOSPITAL Manual differential (01/13/2019 5:10 AM CDT)Only the most recent of2 resultswithin the time period is included. Manual differential PERFORMED [facility] Neutrophils 91.0 (H) 39.0 - 69.0 % [facility] Lymphocytes 0.0 (L) 25.0 - 45.0 % [facility] Monocytes 9.0 0.0 - 10.0 % [facility] Eosinophils 0.0 0.0 - 5.0 % [facility] Basophils 0.0 0.0 - 1.0 % [facility] Platelet slide review Kaykay slt decr (A) [facility] Toxic granulation Moderate (A) [facility] Enlarged platelets Moderate (A) [facility] Giant platelets Occasional [facility] Performing Organization Address [facility] [[email or web address] Phone Number [facility] DEPARTMENT OF PATHOLOGY [address] [place] [address] Basic metabolic panel (01/13/2019 5:10 AM CDT)Only the most recent of2 resultswithin the time period is included. Sodium 139 135 - 148 mEq/L [facility] Potassium 3.6 3.5 - 5.0 mEq/L [facility] Chloride 104 98 - 112 mEq/L [facility] CO2 25 24 - 31 mEq/L [facility] Anion gap 10@ANIO 7 - 15 mEq/L [facility] BUN 64 (H) 8 - 23 mg/dL [facility] Creatinine 1.41 (H) 0.50 - 0.90 mg/dL [facility] Glucose 175 (H) 65 - 99 mg/dL [facility] Calcium 9.4 8.8 - 10.2 mg/dL [facility] Specimen Plasma specimen Performing Organization Address [facility] [[email or web address] Phone Number [facility] DEPARTMENT OF PATHOLOGY [id number] [place] [address] Surgical pathology request (01/12/2019 7:39 AM CDT) [facility] DEPARTMENT OF PATHOLOGY AND GENOMIC MEDICINE Surgical pathology report See link below for PDF [facility] DEPARTMENT OF Lab Report PATHOLOGY AND GENOMIC MEDICINE Result status This is Final Report [facility] DEPARTMENT OF for [id number] PATHOLOGY AND GENOMIC MEDICINE Performing Organization Address City/[facility]/Zipcode Phone Number [facility] DEPARTMENT OF PATHOLOGY [address] [place] [address] AND GENOMIC MEDICINE Type and screen (01/12/2019 6:40 AM CDT) ABO grouping O [facility] Rh type POS [facility] Antibody screen (gel) NEG [facility] Specimen Blood Performing Organization Address City/[facility] [[email or web address] Phone Number [facility] DEPARTMENT OF PATHOLOGY [address] [place] [address] AND GENOMIC MEDICINE [facility] [id number] [place] [address] HOSPITAL OR FL < 1 Hour (01/11/2019 2:30 PM CDT) Narrative Performed At EXAMINATION:OR [place] 1 HOUR [facility] CLINICAL HISTORY:Intraoperative IMPRESSION: Fluoroscopy was provided. No radiologist present.Please see procedure report for discussion of procedure, findings and fluoroscopic time. [facility]-[id number] Procedure Note Interface, Radiology Results Incoming - 01/11/2019 2:46 PM CDT EXAMINATION: OR FL 1 HOUR CLINICAL HISTORY: Intraoperative IMPRESSION: Fluoroscopy was provided. No radiologist present. Please see procedure report for discussion of procedure, findings and fluoroscopic time. [facility]-[id number] Performing Organization Address City/[facility] [[email or web address] Phone Number [facility] [address] [place] [address] Urine drugs of abuse screen (01/11/2019 6:45 AM CDT) Amphetamine screen, urine Positive (A) [facility] Barbiturate screen, urine Negative [facility] Benzodiazepine screen, Negative [facility] urine [facility] Cannabinoid screen, urine Negative [facility] Cocaine screen, urine Negative [facility] Methadone metabolite SEE COMMENT KERRY RAMACHANDRAN (EDDP), urine Comment: [facility] Footnote--------- Unable to report due to possible interfering substances. Opiates screen, urine Positive (A) [facility] Phencyclidine screen, urine Negative [facility] Tricyclic screen, urine Negative [facility] Comment: [facility] Drug screen minimum concentration of detectability [id number] ng/mL Barbiturates 200 ng/mL Yekddrcetlbjiiy889 ng/mL Ndsoylc170 ng/mL Pdrqynlxr360 ng/mL Qslxooa842 ng/mL Phencyclidine 25 ng/mL Mddpgtnjihwf43 ng/mL Bnsrvulfwg1281 ng/mL Results are from screening tests and should only be used for medical evaluation. Drug testing for legal purposes requires definitive (or confirmatory) testing methods, which are available upon request. Contact the laboratory if definitive testing is required. Specimen Urine Performing Organization Address City/[facility]/Zipcode Phone Number [facility] DEPARTMENT OF PATHOLOGY [address] [place] [address] Partial thromboplastin time, activated (01/11/2019 5:00 AM CDT) PTT 35.9 23.0 - 36.0 sec [facility] Comment: [facility] PTT therapeutic range for unfractionated heparin is 61.0-112.0 seconds which corresponds to Anti-Xa 0.3-0.7 U/ml. Specimen Blood Performing Organization Address City/[facility] [[email or web address] Phone Number [facility] DEPARTMENT OF PATHOLOGY [address] [place] [address] Prothrombin time with INR (01/11/2019 5:00 AM CDT) Prothrombin time 18.2 (H) 11.5 - 14.5 sec [facility] INR 1.5 [facility] Comment: [facility] The International Normalized Ratio (INR) is a therapeutic monitoring tool for patients who are stable on oral anticoagulant therapy. An INR of 2.0-3.0 is suggested for deep vein thrombosis/pulmonary embolism. Specimen Blood Performing Organization Address City/[facility]/Zipcode Phone Number [facility] DEPARTMENT OF PATHOLOGY [address] [place] [address] Thyroid stimulating hormone (01/11/2019 5:00 AM CDT)Only the most recent of2 resultswithin the time period is included. TSH 2.01 0.27 - 4.20 uIU/mL [facility] Specimen Blood Performing Organization Address City/State/Zipcode Phone Number [facility] DEPARTMENT OF PATHOLOGY [id number] [place] [address] T4, free (01/11/2019 5:00 AM CDT) T4, free 1.2 0.9 - 1.7 ng/dL [facility] Specimen Blood Performing Organization Address City/[facility]/Zipcode Phone Number [facility] DE[facility]MENT OF PATHOLOGY [address] [place] [address] Prealbumin level (01/11/2019 5:00 AM CDT) Prealbumin 10 (L) 16 - 32 mg/dL [facility] Specimen Serum Performing Organization Address City/State/Zipcode Phone Number [facility] DEPARTMENT OF PATHOLOGY AND [address] [place] [address] [address] Phosphorus level (01/11/2019 5:00 AM CDT) Phosphorus 5.5 (H) 2.4 - 4.5 mg/dL [facility] Specimen Blood Performing Organization Address City/[facility]/Zipcode Phone Number [facility] DEPARTMENT OF PATHOLOGY [address] [place] [address] B natriuretic peptide (01/11/2019 5:00 AM CDT) BNP 424 (H) 0 - 100 pg/mL [facility] Specimen Blood Performing Organization Address City/State/Zipcode Phone Number [facility] DEPARTMENT OF PATHOLOGY [address] [place] [address] [place] [address] HOSPITAL Lipase level (01/11/2019 5:00 AM CDT) Lipase 14 13 - 60 U/L [facility] Specimen Blood Performing Organization Address City/[facility]/Zipcode Phone Number [facility] DEPARTMENT OF PATHOLOGY [address] [place] [address] [place] [address] HOSPITAL Lactic acid level (01/11/2019 5:00 AM CDT) Lactic acid 1.8 0.5 - 2.2 mmol/L [facility] Specimen Plasma specimen Performing Organization Address City/[facility] [email or web address] Phone Number [facility] DEPARTMENT OF PATHOLOGY [address] [place] [address] Hemoglobin A1c (01/11/2019 5:00 AM CDT) Hemoglobin A1C 8.1 (H) 4.0 - 6.0 % [facility] Comment: HOSPITAL Less than 6% - Goal of therapy for Type II Diabetes Less than 7%-Goal of therapy for Type I Diabetes Less than 8%-Acceptable control for Type I or Type II Diabetes Greater than 8%-Unacceptable control; action indicated. (ADA94) Specimen Blood Performing Organization Address City/[facility] [[email or web address] Phone Number [facility] DEPARTMENT OF PATHOLOGY [address] [place] [address] Creatine kinase, total (CPK) (01/11/2019 5:00 AM CDT) Creatine kinase 120 26 - 192 U/L [facility] Specimen Blood Performing Organization Address City/[facility]/Zipcode Phone Number [facility] DEPARTMENT OF PATHOLOGY [address] [place] [address] [place] [address] HOSPITAL Amylase level (01/11/2019 5:00 AM CDT) Amylase 20 13 - 73 U/L [facility] Specimen Blood Performing Organization Address City/[facility]/Zipcode Phone Number [facility] DEPARTMENT OF PATHOLOGY [address] [place] [address] AND [facility] [id number] [place] [address] Lipid panel (01/11/2019 5:00 AM CDT) Cholesterol 107 0 - 199 mg/dL [facility] Triglycerides 59 0 - 149 mg/dL [facility] HDL cholesterol 64 40 - 99,999 [facility] mg/dL [facility] LDL cholesterol 39 0 - 99 mg/dL [facility] Lipid panel See below [facility] interpretation Comment: [facility] Total Cholesterol (mg/dL) <200 Desirable [phone]-bmud >=240High Triglycerides (mg/dL) <150 Normal [id number]-rcod 200-499High >=500Very high HDL Cholesterol (mg/dL) <40Low (male) <50Low (female) LDL Cholesterol (mg/dL) <100 Optimal 100-129Near or above optimal [phone]-ogmo 160-189High >=190Very high Risk Catergories that modify LDL goals. Risk CatergoriesLDL goal (mg/dL) CHD and CHD risk equivalent<100 (10-year risk >20%) Multiple (2+) risk factors <130 (10-year risk=<20%) 0-1 risk factors <160 (<10-year risk) Defining levels of lipids in metabolic syndrome Triglycerides>=150 mg/dL HDL Cholesterol Men<40 mg/dL Women<50 mg/dL Non-HDL cholesterol is a second target for therapy in persons with high triglycerides (>=200 mg/dL) Specimen Blood Performing Organization Address City/State/Zipcode Phone Number [facility] DEPARTMENT OF PATHOLOGY [address] [place] [address] AND [facility] [id number] MRI Cholangiogram wo contrast (01/11/2019 1:16 AM CDT) Narrative Performed At EXAMINATION:MRI CHOLANGIOGRAM WO CONTRAST [facility]IANT CLINICAL HISTORY:CHOLEDOCHOLITHIASIS TECHNIQUE: Multiplanar multisequence MR images of the abdomen were obtained without contrast. The lack of intravenous contrast reduces the sensitivity of detecting solid organ disease.MRCP images were obtained with 3-D reconstructions on the acquisition scanner under concurrent supervision. COMPARISON:None. IMPRESSION: Exam is limited; exam was terminated early because patient refused to continue the study. Gallbladder is hydropic with layering sludge in the lumen. Marked gallbladder wall thickening and edema is seen, consistent with acute cholecystitis. Within the cystic duct, a calculus is identified (series 9, image 104). There is common bile duct dilation measuring 1 cm with mild to moderate intrahepatic biliary ductal dilation. Narrowing at the ampulla is seen, and possible etiologies for this appearance include stricture, recently passed stone , or ampullary mass. Further evaluation with ERCP would be of benefit. In addition, some fluid is seen about the pancreatic head with some edema, suggestive of acute concomitant pancreatitis. Liver, spleen, adrenal glands are normal. Simple cyst is seen in the right kidney. No hydronephrosis or hydroureter. Ascites is identified. Nonopacified arterial, venous, and portal venous vasculature are unremarkable. A few diverticula are seen without diverticulitis. No gastrointestinal tract obstruction. Small hiatal hernia. No acute osseous abnormalities. Summary: Hydropic gallbladder contains sludge in the lumen, with marked wall thickening and edema, compatible with acute cholecystitis. A calculus is identified in the cystic duct. Common bile dilation measuring 1 cm is seen with mild to moderate intrahepatic biliary ductal dilation. Abrupt narrowing at the ampulla is seen, and possibly etiologies for this appearance include stricture, recently passed stone, or ampullary mass. Further evaluation with ERCP would be of benefit. Suggestion of concomitant acute pancreatitis. [facility]-[id number] Procedure Note [facility], Radiology Results Incoming - 01/11/2019 1:42 AM CDT EXAMINATION: MRI CHOLANGIOGRAM WO CONTRAST CLINICAL HISTORY: CHOLEDOCHOLITHIASIS TECHNIQUE: Multiplanar multisequence MR images of the abdomen were obtained without contrast. The lack of intravenous contrast reduces the sensitivity of detecting solid organ disease. MRCP images were obtained with 3-D reconstructions on the acquisition scanner under concurrent supervision. COMPARISON: None. IMPRESSION: Exam is limited; exam was terminated early because patient refused to continue the study. Gallbladder is hydropic with layering sludge in the lumen. Marked gallbladder wall thickening and edema is seen, consistent with acute cholecystitis. Within the cystic duct, a calculus is identified (series 9, image 104). There is common bile duct dilation measuring 1 cm with mild to moderate intrahepatic biliary ductal dilation. Narrowing at the ampulla is seen, and possible etiologies for this appearance include stricture, recently passed stone , or ampullary mass. Further evaluation with ERCP would be of benefit. In addition, some fluid is seen about the pancreatic head with some edema, suggestive of acute concomitant pancreatitis. Liver, spleen, adrenal glands are normal. Simple cyst is seen in the right kidney. No hydronephrosis or hydroureter. Ascites is identified. Nonopacified arterial, venous, and portal venous vasculature are unremarkable. A few diverticula are seen without diverticulitis. No gastrointestinal tract obstruction. Small hiatal hernia. No acute osseous abnormalities. Summary: Hydropic gallbladder contains sludge in the lumen, with marked wall thickening and edema, compatible with acute cholecystitis. A calculus is identified in the cystic duct. Common bile dilation measuring 1 cm is seen with mild to moderate intrahepatic biliary ductal dilation. Abrupt narrowing at the ampulla is seen, and possibly etiologies for this appearance include stricture, recently passed stone, or ampullary mass. Further evaluation with ERCP would be of benefit. Suggestion of concomitant acute pancreatitis. [facility]-[id number] Performing Organization Address City/State/Zipcode Phone Number [facility] [address] [place] [address] after 01/22/2018 Insurance Payer Benefit Plan / Group Subscriber ID Type Phone Address [employer] MED[employer]ARE A[employer] MEDICARE HMO/PPO [facility] xxxxxxxx HMO Advance Directives Patient has advance care planning documents on file. For more information, please contact:[facility] [place] [address]
--- OUTSIDE RECORDS SUMMARY | 2019-01-23 11:11 | XMS REPORT ---
:1945 [facility] [address] [place] [id number] Care Team Providers Name Role Phone DARLENE [...] (BEAKER) (test 174 mg/dL 70-110 TESTED AT [facility] [address] [facility] gztt=0863) [facility] [address] BASIC METABOLIC [id number] 07:28:00 Test Item Value Reference Range Comments SODIUM (BEAKER) (test 140 meq/L 136-145 oome=123) POTASSIUM (BEAKER) (test 3.8 meq/L 3.5-5.1 qkcq=591) CHLORIDE (BEAKER) (test 99 meq/L 98-107 hlme=132) CO2 (BEAKER) (test 30 meq/L 22-29 wlbz=005) BLOOD UREA NITROGEN 36 mg/dL 7-21 (BEAKER) (test fpcv=113) CREATININE (BEAKER) (test 1.10 mg/dL 0.57-1.25 lwse=959) GLUCOSE RANDOM (BEAKER) 158 mg/dL 70-105 (test pylk=448) CALCIUM (BEAKER) (test 9.4 mg/dL 8.4-10.2 cjey=331) EGFR (BEAKER) (test mL/min/1.73 sq m INSUFFICIENT CLINICAL DATA gpca=9369) TO CALCULATE ESTIMATED GFR. [id number] 07:16:00 Test Item Value Reference Range Comments PHOSPHORUS (BEAKER) (test cwgm=988) 3.7 mg/dL 2.3-4.7 [id number] 07:16:00 Test Item Value Reference Range Comments MAGNESIUM (BEAKER) (test uuqx=598) 1.9 mg/dL 1.6-2.6 POCT-GLUCOSE [id number] 20:52:00 Test Item Value Reference Range Comments POC-GLUCOSE METER (BEAKER) 256 mg/dL 70-110 TESTED AT [address] (test fypo=3719) [facility] [address] POCT-GLUCOSE [id number] 19:07:00 Test Item Value Reference Range Comments POC-GLUCOSE METER (BEAKER) 210 mg/dL 70-110 TESTED AT [address] (test akkq=9094) [facility] [address] POCT-GLUCOSE [id number] 14:29:00 Test Item Value Reference Range Comments POC-GLUCOSE METER (BEAKER) 179 mg/dL 70-110 TESTED AT [address] (test vgdr=5454) [facility] [address] POCT-GLUCOSE [id number] 09:09:00 Test Item Value Reference Range Comments POC-GLUCOSE METER (BEAKER) 186 mg/dL 70-110 TESTED AT [address] (test uonv=1319) [facility] [address] BASIC METABOLIC [id number] 07:41:00 Test Item Value Reference Range Comments SODIUM (BEAKER) (test 138 meq/L 136-145 sjbc=846) POTASSIUM (BEAKER) (test 3.8 meq/L 3.5-5.1 gegh=029) CHLORIDE (BEAKER) (test 102 meq/L 98-107 hwpj=728) CO2 (BEAKER) (test 27 meq/L 22-29 ztju=417) BLOOD UREA NITROGEN 40 mg/dL 7-21 (BEAKER) (test onfr=846) CREATININE (BEAKER) (test 1.07 mg/dL 0.57-1.25 xttx=403) GLUCOSE RANDOM (BEAKER) 164 mg/dL 70-105 (test xlnq=316) CALCIUM (BEAKER) (test 8.8 mg/dL 8.4-10.2 czfy=303) EGFR (BEAKER) (test mL/min/1.73 sq m INSUFFICIENT CLINICAL DATA zbtq=6173) TO CALCULATE ESTIMATED GFR. [id number] 07:38:00 Test Item Value Reference Range Comments PHOSPHORUS (BEAKER) (test ihqn=329) 3.4 mg/dL 2.3-4.7 [id number] 07:38:00 Test Item Value Reference Range Comments MAGNESIUM (BEAKER) (test kysk=648) 1.5 mg/dL 1.6-2.6 POCT-GLUCOSE [id number] 22:12:00 Test Item Value Reference Range Comments POC-GLUCOSE METER (BEAKER) 216 mg/dL 70-110 TESTED AT [address] (test flro=2887) [place] [address] POCT-GLUCOSE [id number] 14:18:00 Test Item Value Reference Range Comments POC-GLUCOSE METER (BEAKER) 72 mg/dL 70-110 TESTED AT [address] (test pylx=6936) [place] [address] POCT-GLUCOSE [id number] 14:18:00 Test Item Value Reference Range Comments POC-GLUCOSE METER (BEAKER) 59 mg/dL 70-110 Notified ELIZA UQINONES/TESTED AT [facility] (test lywc=3198) [address] [place] [address] POCT-GLUCOSE [id number] 11:16:00 Test Item Value Reference Range Comments POC-GLUCOSE METER (BEAKER) 126 mg/dL 70-110 TESTED AT [address] (test isua=5850) [place] [address] POCT-GLUCOSE [id number] 08:49:00 Test Item Value Reference Range Comments POC-GLUCOSE METER (BEAKER) 156 mg/dL 70-110 TESTED AT [address] (test owwa=4615) [place] [address] CBC W/PLT COUNT & AUTO [id number] 07:43:00 Test Item Value Reference Range Comments WHITE BLOOD CELL COUNT (BEAKER) (test sfjz=460) 7.9 K/ L 3.5-10.5 RED BLOOD CELL COUNT (BEAKER) (test mwtw=024) 2.95 M/ L 3.93-5.22 HEMOGLOBIN (BEAKER) (test aamn=871) 8.8 GM/DL 11.2-15.7 HEMATOCRIT (BEAKER) (test hckl=350) 27.2 % 34.1-44.9 MEAN CORPUSCULAR VOLUME (BEAKER) (test vcli=612) 92.2 fL 79.4-94.8 MEAN CORPUSCULAR HEMOGLOBIN (BEAKER) (test 29.8 pg 25.6-32.2 bpjb=616) MEAN CORPUSCULAR HEMOGLOBIN CONC (BEAKER) (test 32.4 GM/DL 32.2-35.5 fgdj=467) RED CELL DISTRIBUTION WIDTH (BEAKER) (test 15.6 % 11.7-14.4 yjfn=420) PLATELET COUNT (BEAKER) (test qunz=054) 162 K/CU MM 150-450 MEAN PLATELET VOLUME (BEAKER) (test gvlf=274) 12.0 fL 9.4-12.3 NUCLEATED RED BLOOD CELLS (BEAKER) (test 0 /100 WBC 0-0 krtt=744) NEUTROPHILS RELATIVE PERCENT (BEAKER) (test 76 % xuld=104) LYMPHOCYTES RELATIVE PERCENT (BEAKER) (test 8 % utiy=203) MONOCYTES RELATIVE PERCENT (BEAKER) (test 9 % lrxg=520) EOSINOPHILS RELATIVE PERCENT (BEAKER) (test 6 % fhjb=687) BASOPHILS RELATIVE PERCENT (BEAKER) (test 0 % hbhx=437) NEUTROPHILS ABSOLUTE COUNT (BEAKER) (test 6.00 K/ L 1.56-6.13 itvc=687) LYMPHOCYTES ABSOLUTE COUNT (BEAKER) (test 0.66 K/ L 1.18-3.74 vqpg=888) MONOCYTES ABSOLUTE COUNT (BEAKER) (test 0.71 K/ L 0.24-0.36 niar=045) EOSINOPHILS ABSOLUTE COUNT (BEAKER) (test 0.44 K/ L 0.04-0.36 hycp=191) BASOPHILS ABSOLUTE COUNT (BEAKER) (test 0.01 K/ L 0.01-0.08 hgwo=146) IMMATURE GRANULOCYTES-RELATIVE PERCENT (BEAKER) 1 % 0-1 (test nvyf=8974) BASIC METABOLIC [id number] 07:15:00 Test Item Value Reference Range Comments SODIUM (BEAKER) (test 139 meq/L 136-145 xfjx=036) POTASSIUM (BEAKER) (test 3.9 meq/L 3.5-5.1 jqls=826) CHLORIDE (BEAKER) (test 104 meq/L 98-107 wgnt=057) CO2 (BEAKER) (test 26 meq/L 22-29 rhjz=492) BLOOD UREA NITROGEN 37 mg/dL 7-21 (BEAKER) (test ixew=575) CREATININE (BEAKER) (test 1.02 mg/dL 0.57-1.25 uqdv=006) GLUCOSE RANDOM (BEAKER) 133 mg/dL 70-105 (test azhw=334) CALCIUM (BEAKER) (test 9.1 mg/dL 8.4-10.2 otjx=861) EGFR (BEAKER) (test mL/min/1.73 sq m INSUFFICIENT CLINICAL DATA ywkj=4884) TO CALCULATE ESTIMATED GFR. [id number] 07:13:00 Test Item Value Reference Range Comments PHOSPHORUS (BEAKER) (test jzdn=630) 3.2 mg/dL 2.3-4.7 [id number] 07:13:00 Test Item Value Reference Range Comments MAGNESIUM (BEAKER) (test erqq=757) 1.7 mg/dL 1.6-2.6 POCT-GLUCOSE [id number] 21:19:00 Test Item Value Reference Range Comments POC-GLUCOSE METER (BEAKER) 228 mg/dL 70-110 TESTED AT [address] (test ndzu=4261) [place] [address] POCT-GLUCOSE [id number] 17:02:00 Test Item Value Reference Range Comments POC-GLUCOSE METER (BEAKER) 165 mg/dL 70-110 TESTED AT [address] (test trum=8714) [place] [address] POCT-GLUCOSE [id number] 11:55:00 Test Item Value Reference Range Comments POC-GLUCOSE METER (BEAKER) 170 mg/dL 70-110 TESTED AT [address] (test cjwv=0322) [place] [address] CBC W/PLT COUNT & AUTO [id number] 10:41:00 Test Item Value Reference Range Comments WHITE BLOOD CELL COUNT (BEAKER) (test ubys=408) 6.7 K/ L 3.5-10.5 RED BLOOD CELL COUNT (BEAKER) (test wbly=620) 2.92 M/ L 3.93-5.22 HEMOGLOBIN (BEAKER) (test ilnc=346) 8.4 GM/DL 11.2-15.7 HEMATOCRIT (BEAKER) (test sykb=939) 27.3 % 34.1-44.9 MEAN CORPUSCULAR VOLUME (BEAKER) (test thwa=850) 93.5 fL 79.4-94.8 MEAN CORPUSCULAR HEMOGLOBIN (BEAKER) (test 28.8 pg 25.6-32.2 syhm=527) MEAN CORPUSCULAR HEMOGLOBIN CONC (BEAKER) (test 30.8 GM/DL 32.2-35.5 eipn=000) RED CELL DISTRIBUTION WIDTH (BEAKER) (test 15.8 % 11.7-14.4 eoao=761) PLATELET COUNT (BEAKER) (test njdv=000) 127 K/CU MM 150-450 MEAN PLATELET VOLUME (BEAKER) (test pwfp=410) 12.8 fL 9.4-12.3 NUCLEATED RED BLOOD CELLS (BEAKER) (test 0 /100 WBC 0-0 bqow=782) NEUTROPHILS RELATIVE PERCENT (BEAKER) (test 74 % sqiv=414) LYMPHOCYTES RELATIVE PERCENT (BEAKER) (test 10 % lrye=727) MONOCYTES RELATIVE PERCENT (BEAKER) (test 10 % mgen=960) EOSINOPHILS RELATIVE PERCENT (BEAKER) (test 6 % dicx=417) BASOPHILS RELATIVE PERCENT (BEAKER) (test 0 % texx=663) NEUTROPHILS ABSOLUTE COUNT (BEAKER) (test 4.95 K/ L 1.56-6.13 brub=639) LYMPHOCYTES ABSOLUTE COUNT (BEAKER) (test 0.64 K/ L 1.18-3.74 djmi=482) MONOCYTES ABSOLUTE COUNT (BEAKER) (test 0.66 K/ L 0.24-0.36 ltta=610) EOSINOPHILS ABSOLUTE COUNT (BEAKER) (test 0.37 K/ L 0.04-0.36 quhu=742) BASOPHILS ABSOLUTE COUNT (BEAKER) (test 0.01 K/ L 0.01-0.08 orgx=237) IMMATURE GRANULOCYTES-RELATIVE PERCENT (BEAKER) 1 % 0-1 (test dtju=2083) BASIC METABOLIC [id number] 07:41:00 Test Item Value Reference Range Comments SODIUM (BEAKER) (test 138 meq/L 136-145 ootd=797) POTASSIUM (BEAKER) (test 4.0 meq/L 3.5-5.1 yoao=148) CHLORIDE (BEAKER) (test 107 meq/L 98-107 ptfj=491) CO2 (BEAKER) (test 25 meq/L 22-29 trzk=399) BLOOD UREA NITROGEN 40 mg/dL 7-21 (BEAKER) (test ntyv=549) CREATININE (BEAKER) (test 1.00 mg/dL 0.57-1.25 pwhb=314) GLUCOSE RANDOM (BEAKER) 115 mg/dL 70-105 (test iwan=628) CALCIUM (BEAKER) (test 9.0 mg/dL 8.4-10.2 eqkx=975) EGFR (BEAKER) (test mL/min/1.73 sq m INSUFFICIENT CLINICAL DATA groa=4628) TO CALCULATE ESTIMATED GFR. POCT-GLUCOSE [id number] 07:24:00 Test Item Value Reference Range Comments POC-GLUCOSE METER (BEAKER) 134 mg/dL 70-110 TESTED AT [address] (test rvjp=0631) [place] [address] [id number] 07:24:00 Test Item Value Reference Range Comments PHOSPHORUS (BEAKER) (test kvin=971) 2.9 mg/dL 2.3-4.7 [id number] 07:24:00 Test Item Value Reference Range Comments MAGNESIUM (BEAKER) (test zytb=746) 2.0 mg/dL 1.6-2.6 POCT-GLUCOSE [id number] 20:53:00 Test Item Value Reference Range Comments POC-GLUCOSE METER (BEAKER) 133 mg/dL 70-110 TESTED AT [address] (test wbke=8701) [place] [address] POCT-GLUCOSE [id number] 17:10:00 Test Item Value Reference Range Comments POC-GLUCOSE METER (BEAKER) 85 mg/dL 70-110 TESTED AT [address] (test kbnm=2390) [facility] [address] POCT-GLUCOSE [id number] 17:10:00 Test Item Value Reference Range Comments POC-GLUCOSE METER (BEAKER) 58 mg/dL 70-110 Notified ELIZA QUINONES/TESTED AT [facility] (test vkhz=6197) [address] [place], [place] [id number] POCT-GLUCOSE [id number] 11:37:00 Test Item Value Reference Range Comments POC-GLUCOSE METER (BEAKER) 222 mg/dL 70-110 TESTED AT [address] (test doxq=5111) [place] [address] POCT-GLUCOSE [id number] 07:16:00 Test Item Value Reference Range Comments POC-GLUCOSE METER (BEAKER) 133 mg/dL 70-110 TESTED AT [address] (test eyur=0436) [place] [address] [id number] 06:58:00 Test Item Value Reference Range Comments MAGNESIUM (BEAKER) (test 2.5 mg/dL 1.6-2.6 Specimen slightly hemolyzed oxcz=024) [id number] 06:58:00 Test Item Value Reference Range Comments PHOSPHORUS (BEAKER) (test 2.8 mg/dL 2.3-4.7 Specimen slightly hemolyzed rmbt=715) POCT-GLUCOSE [id number] 21:07:00 Test Item Value Reference Range Comments POC-GLUCOSE METER (BEAKER) 196 mg/dL 70-110 TESTED AT [address] (test jjic=8968) [place] [address] POCT-GLUCOSE [id number] 17:25:00 Test Item Value Reference Range Comments POC-GLUCOSE METER (BEAKER) 78 mg/dL 70-110 TESTED AT [address] (test lzhw=6317) [place] [address] POCT-GLUCOSE [id number] 17:13:00 Test Item Value Reference Range Comments POC-GLUCOSE METER (BEAKER) 53 mg/dL 70-110 Notified ELIZA QUINONES/TESTED AT [facility] (test tlfp=5323) [address] [place] [address] POCT-GLUCOSE [id number] 12:13:00 Test Item Value Reference Range Comments POC-GLUCOSE METER (BEAKER) 73 mg/dL 70-110 TESTED AT [address] (test cyop=1928) [place] [address] POCT-GLUCOSE [id number] 07:42:00 Test Item Value Reference Range Comments POC-GLUCOSE METER (BEAKER) 78 mg/dL 70-110 TESTED AT [address] (test ynco=1063) [place] [address] BASIC METABOLIC [id number] 07:04:00 Test Item Value Reference Range Comments SODIUM (BEAKER) (test 136 meq/L 136-145 pdhb=051) POTASSIUM (BEAKER) (test 3.9 meq/L 3.5-5.1 jhcp=803) CHLORIDE (BEAKER) (test 105 meq/L 98-107 qfvo=339) CO2 (BEAKER) (test 25 meq/L 22-29 nhij=075) BLOOD UREA NITROGEN 50 mg/dL 7-21 (BEAKER) (test oeop=380) CREATININE (BEAKER) (test 1.11 mg/dL 0.57-1.25 nyae=418) GLUCOSE RANDOM (BEAKER) 79 mg/dL 70-105 (test eghn=537) CALCIUM (BEAKER) (test 8.9 mg/dL 8.4-10.2 zckf=044) EGFR (BEAKER) (test mL/min/1.73 sq m INSUFFICIENT CLINICAL DATA febg=6104) TO CALCULATE ESTIMATED GFR. [id number] 07:03:00 Test Item Value Reference Range Comments PHOSPHORUS (BEAKER) (test yple=120) 2.8 mg/dL 2.3-4.7 [id number] 07:03:00 Test Item Value Reference Range Comments MAGNESIUM (BEAKER) (test rpsi=503) 2.2 mg/dL 1.6-2.6 CBC (HEMOGRAM ONLY)2017-05-26 06:52:00 Test Item Value Reference Range Comments WHITE BLOOD CELL COUNT (BEAKER) (test hgqx=656) 6.3 K/ L 3.5-10.5 RED BLOOD CELL COUNT (BEAKER) (test jxvn=424) 2.82 M/ L 3.93-5.22 HEMOGLOBIN (BEAKER) (test ewnd=276) 8.3 GM/DL 11.2-15.7 HEMATOCRIT (BEAKER) (test zzxr=407) 25.8 % 34.1-44.9 MEAN CORPUSCULAR VOLUME (BEAKER) (test cigh=965) 91.5 fL 79.4-94.8 MEAN CORPUSCULAR HEMOGLOBIN (BEAKER) (test 29.4 pg 25.6-32.2 kskz=987) MEAN CORPUSCULAR HEMOGLOBIN CONC (BEAKER) (test 32.2 GM/DL 32.2-35.5 qedb=732) RED CELL DISTRIBUTION WIDTH (BEAKER) (test 15.9 % 11.7-14.4 xfhj=598) PLATELET COUNT (BEAKER) (test ckzw=655) 82 K/CU MM 150-450 MEAN PLATELET VOLUME (BEAKER) (test bhjt=567) 12.9 fL 9.4-12.3 NUCLEATED RED BLOOD CELLS (BEAKER) (test 0 /100 WBC 0-0 pzca=220) POCT-GLUCOSE [id number] 21:21:00 Test Item Value Reference Range Comments POC-GLUCOSE METER (BEAKER) 171 mg/dL 70-110 TESTED AT [address] (test imgu=1021) [place] [address] POCT-GLUCOSE [id number] 18:49:00 Test Item Value Reference Range Comments POC-GLUCOSE METER (BEAKER) 190 mg/dL 70-110 TESTED AT [address] (test ctvl=3686) [place] [address] POCT-GLUCOSE [id number] 12:33:00 Test Item Value Reference Range Comments POC-GLUCOSE METER (BEAKER) 213 mg/dL 70-110 TESTED AT [address] (test xsha=5658) [place] [address] POCT-GLUCOSE [id number] 08:39:00 Test Item Value Reference Range Comments POC-GLUCOSE METER (BEAKER) 234 mg/dL 70-110 TESTED AT [address] (test vgwq=1121) [facility] [address] BASIC METABOLIC [id number] 07:16:00 Test Item Value Reference Range Comments SODIUM (BEAKER) (test 132 meq/L 136-145 duic=385) POTASSIUM (BEAKER) (test 5.0 meq/L 3.5-5.1 Specimen moderately nuxn=314) hemolyzed CHLORIDE (BEAKER) (test 104 meq/L 98-107 idbr=164) CO2 (BEAKER) (test 19 meq/L 22-29 ebfz=664) BLOOD UREA NITROGEN 45 mg/dL 7-21 (BEAKER) (test yanv=445) CREATININE (BEAKER) (test 1.23 mg/dL 0.57-1.25 Specimen moderately jnwm=489) hemolyzed GLUCOSE RANDOM (BEAKER) 211 mg/dL 70-105 (test henz=906) CALCIUM (BEAKER) (test 9.0 mg/dL 8.4-10.2 uybs=237) EGFR (BEAKER) (test mL/min/1.73 sq m INSUFFICIENT CLINICAL DATA owdo=8273) TO CALCULATE ESTIMATED GFR. [id number] 07:12:00 Test Item Value Reference Range Comments MAGNESIUM (BEAKER) (test 2.6 mg/dL 1.6-2.6 Specimen moderately hemolyzed ftem=362) [id number] 07:12:00 Test Item Value Reference Range Comments PHOSPHORUS (BEAKER) (test 2.8 mg/dL 2.3-4.7 Specimen moderately hemolyzed nwdi=257) CBC (HEMOGRAM ONLY)2017-05-25 06:51:00 Test Item Value Reference Range Comments WHITE BLOOD CELL COUNT (BEAKER) (test haxf=348) 10.1 K/ L 3.5-10.5 RED BLOOD CELL COUNT (BEAKER) (test ymdq=378) 3.09 M/ L 3.93-5.22 HEMOGLOBIN (BEAKER) (test iagh=656) 9.0 GM/DL 11.2-15.7 HEMATOCRIT (BEAKER) (test ldfe=382) 28.3 % 34.1-44.9 MEAN CORPUSCULAR VOLUME (BEAKER) (test dyrn=350) 91.6 fL 79.4-94.8 MEAN CORPUSCULAR HEMOGLOBIN (BEAKER) (test 29.1 pg 25.6-32.2 vfyy=908) MEAN CORPUSCULAR HEMOGLOBIN CONC (BEAKER) (test 31.8 GM/DL 32.2-35.5 imdl=350) RED CELL DISTRIBUTION WIDTH (BEAKER) (test 16.0 % 11.7-14.4 dpdt=308) PLATELET COUNT (BEAKER) (test znrl=753) 71 K/CU MM 150-450 MEAN PLATELET VOLUME (BEAKER) (test yeng=565) 13.4 fL 9.4-12.3 NUCLEATED RED BLOOD CELLS (BEAKER) (test 0 /100 WBC 0-0 xcxf=744) POCT-GLUCOSE [id number] 22:22:00 Test Item Value Reference Range Comments POC-GLUCOSE METER (BEAKER) 190 mg/dL 70-110 TESTED AT [place] [address] [address] (test nmvo=1349) [facility] [address] POCT-GLUCOSE [id number] 18:10:00 Test Item Value Reference Range Comments POC-GLUCOSE METER (BEAKER) 338 mg/dL 70-110 Notified ELIZA QUINONES/TESTED AT [facility] (test jfqz=2189) [address] [facility] [address] POCT-GLUCOSE [id number] 14:03:00 Test Item Value Reference Range Comments POC-GLUCOSE METER (BEAKER) 260 mg/dL 70-110 TESTED AT [facility] [address] (test vwif=3831) [facility] [address] POCT-GLUCOSE [id number] 08:28:00 Test Item Value Reference Range Comments POC-GLUCOSE METER (BEAKER) 307 mg/dL 70-110 Notified ELIZA QUINONES/TESTED AT [facility] (test frzb=5183) [address] [facility] [address] [id number] 07:02:00 Test Item Value Reference Range Comments PHOSPHORUS (BEAKER) (test ihun=677) 3.3 mg/dL 2.3-4.7 [id number] 07:02:00 Test Item Value Reference Range Comments MAGNESIUM (BEAKER) (test asfo=041) 2.0 mg/dL 1.6-2.6 BASIC METABOLIC [id number] 07:02:00 Test Item Value Reference Range Comments SODIUM (BEAKER) (test 136 meq/L 136-145 cqem=867) POTASSIUM (BEAKER) (test 4.2 meq/L 3.5-5.1 stlr=385) CHLORIDE (BEAKER) (test 105 meq/L 98-107 yird=635) CO2 (BEAKER) (test 24 meq/L 22-29 ygqp=491) BLOOD UREA NITROGEN 32 mg/dL 7-21 (BEAKER) (test welj=915) CREATININE (BEAKER) (test 1.21 mg/dL 0.57-1.25 jnpl=703) GLUCOSE RANDOM (BEAKER) 286 mg/dL 70-105 (test lbxu=641) CALCIUM (BEAKER) (test 9.0 mg/dL 8.4-10.2 rgfz=040) EGFR (BEAKER) (test mL/min/1.73 sq m INSUFFICIENT CLINICAL DATA uvzb=9315) TO CALCULATE ESTIMATED GFR. CBC (HEMOGRAM ONLY)2017-05-24 06:48:00 Test Item Value Reference Range Comments WHITE BLOOD CELL COUNT (BEAKER) (test jqkz=641) 9.8 K/ L 3.5-10.5 RED BLOOD CELL COUNT (BEAKER) (test fvap=348) 3.12 M/ L 3.93-5.22 HEMOGLOBIN (BEAKER) (test lraw=777) 9.3 GM/DL 11.2-15.7 HEMATOCRIT (BEAKER) (test ibwb=936) 28.4 % 34.1-44.9 MEAN CORPUSCULAR VOLUME (BEAKER) (test yvjj=749) 91.0 fL 79.4-94.8 MEAN CORPUSCULAR HEMOGLOBIN (BEAKER) (test 29.8 pg 25.6-32.2 pwqz=091) MEAN CORPUSCULAR HEMOGLOBIN CONC (BEAKER) (test 32.7 GM/DL 32.2-35.5 bbsd=614) RED CELL DISTRIBUTION WIDTH (BEAKER) (test 16.5 % 11.7-14.4 jbiq=728) PLATELET COUNT (BEAKER) (test gxel=198) 68 K/CU MM 150-450 MEAN PLATELET VOLUME (BEAKER) (test sgvz=138) 13.6 fL 9.4-12.3 NUCLEATED RED BLOOD CELLS (BEAKER) (test 0 /100 WBC 0-0 xgiv=741) POCT-GLUCOSE [id number] 00:13:00 Test Item Value Reference Range Comments POC-GLUCOSE METER (BEAKER) 363 mg/dL 70-110 TESTED AT [address] (test rauy=7058) [facility] [address] POCT-GLUCOSE [id number] 17:08:00 Test Item Value Reference Range Comments POC-GLUCOSE METER (BEAKER) 365 mg/dL 70-110 TESTED AT [address] (test qaoj=5605) [facility] [address] POCT-GLUCOSE [id number] 16:42:00 Test Item Value Reference Range Comments POC-GLUCOSE METER (BEAKER) 396 mg/dL 70-110 Notified ELIZA QUINONES/TESTED AT [facility] (test xkno=3668) [address] [place] [address] POCT-GLUCOSE [id number] 07:42:00 Test Item Value Reference Range Comments POC-GLUCOSE METER (BEAKER) 145 mg/dL 70-110 TESTED AT [address] (test wbgh=2366) [facility] [address] POCT-GLUCOSE [id number] 06:37:00 Test Item Value Reference Range Comments POC-GLUCOSE METER (BEAKER) 99 mg/dL 70-110 TESTED AT [address] (test zhby=0053) [facility] [address] POCT-GLUCOSE [id number] 06:37:00 Test Item Value Reference Range Comments POC-GLUCOSE METER (BEAKER) 126 mg/dL 70-110 TESTED AT [address] (test ysxh=1810) [facility] [address] POCT-GLUCOSE [id number] 04:11:00 Test Item Value Reference Range Comments POC-GLUCOSE METER (BEAKER) 137 mg/dL 70-110 TESTED AT [address] (test xfhq=7975) [facility] [address] POCT-GLUCOSE [id number] 04:11:00 Test Item Value Reference Range Comments POC-GLUCOSE METER (BEAKER) 193 mg/dL 70-110 TESTED AT [address] (test kquf=7998) [facility] [address] POCT-GLUCOSE [id number] 04:11:00 Test Item Value Reference Range Comments POC-GLUCOSE METER (BEAKER) 220 mg/dL 70-110 TESTED AT [address] (test vzex=2211) [facility] [address] POCT-GLUCOSE [id number] 04:11:00 Test Item Value Reference Range Comments POC-GLUCOSE METER (BEAKER) 228 mg/dL 70-110 TESTED AT [address] (test pkkz=6566) [facility] [address] BASIC METABOLIC [id number] 04:04:00 Test Item Value Reference Range Comments SODIUM (BEAKER) (test 143 meq/L 136-145 qhtp=508) POTASSIUM (BEAKER) (test 4.1 meq/L 3.5-5.1 qvcn=545) CHLORIDE (BEAKER) (test 114 meq/L 98-107 rukz=647) CO2 (BEAKER) (test 23 meq/L 22-29 zanv=552) BLOOD UREA NITROGEN 24 mg/dL 7-21 (BEAKER) (test jeyq=996) CREATININE (BEAKER) (test 0.85 mg/dL 0.57-1.25 jbfp=703) GLUCOSE RANDOM (BEAKER) 146 mg/dL 70-105 (test fmsp=023) CALCIUM (BEAKER) (test 9.0 mg/dL 8.4-10.2 jvrj=142) EGFR (BEAKER) (test mL/min/1.73 sq m INSUFFICIENT CLINICAL DATA qynn=5496) TO CALCULATE ESTIMATED GFR. [id number] 03:49:00 Test Item Value Reference Range Comments PHOSPHORUS (BEAKER) (test fsxe=151) 2.6 mg/dL 2.3-4.7 [id number] 03:49:00 Test Item Value Reference Range Comments MAGNESIUM (BEAKER) (test mhla=958) 2.3 mg/dL 1.6-2.6 CBC (HEMOGRAM ONLY)2017-05-23 03:36:00 Test Item Value Reference Range Comments WHITE BLOOD CELL COUNT (BEAKER) (test eeat=225) 9.9 K/ L 3.5-10.5 RED BLOOD CELL COUNT (BEAKER) (test tyfn=732) 3.43 M/ L 3.93-5.22 HEMOGLOBIN (BEAKER) (test kyjd=816) 10.0 GM/DL 11.2-15.7 HEMATOCRIT (BEAKER) (test okly=963) 30.6 % 34.1-44.9 MEAN CORPUSCULAR VOLUME (BEAKER) (test mqaa=083) 89.2 fL 79.4-94.8 MEAN CORPUSCULAR HEMOGLOBIN (BEAKER) (test 29.2 pg 25.6-32.2 mman=982) MEAN CORPUSCULAR HEMOGLOBIN CONC (BEAKER) (test 32.7 GM/DL 32.2-35.5 jliw=093) RED CELL DISTRIBUTION WIDTH (BEAKER) (test 16.5 % 11.7-14.4 beqm=515) PLATELET COUNT (BEAKER) (test vzrz=076) 68 K/CU MM 150-450 MEAN PLATELET VOLUME (BEAKER) (test evtt=052) 12.2 fL 9.4-12.3 NUCLEATED RED BLOOD CELLS (BEAKER) (test 0 /100 WBC 0-0 xhct=454) BLOOD GAS, [id number] 03:25:00 Test Item Value Reference Range Comments PH ARTERIAL (BEAKER) (test bqdx=047) 7.36 7.35-7.45 PCO2 ARTERIAL (BEAKER) (test cjrk=006) 46 mmHg 35-45 PO2 ARTERIAL (BEAKER) (test sqpi=766) 135 mmHg 80-90 O2 SATURATION ARTERIAL (BEAKER) (test oaap=884) 98.6 % 96.0-97.0 HCO3 ARTERIAL (BEAKER) (test vmog=010) 25 mmol/L 21-29 BASE EXCESS ARTERIAL (BEAKER) (test cuoc=353) -0.5 mmol/L -2.0-3.0 PATIENT TEMPERATURE (BEAKER) (test qfqc=9806) 37.1 C FIO2 (BEAKER) (test uodo=1490) 40.0 % POCT-GLUCOSE [id number] 03:22:00 Test Item Value Reference Range Comments POC-GLUCOSE METER (BEAKER) 154 mg/dL 70-110 TESTED AT [facility] [address] [facility] (test bebs=4011) [facility] [address] BLOOD GAS, [id number] 00:25:00 Test Item Value Reference Range Comments PH ARTERIAL (BEAKER) (test ptwe=608) 7.32 7.35-7.45 PCO2 ARTERIAL (BEAKER) (test huiu=827) 51 mmHg 35-45 PO2 ARTERIAL (BEAKER) (test ckfh=637) 117 mmHg 80-90 O2 SATURATION ARTERIAL (BEAKER) (test sqhh=757) 97.9 % 96.0-97.0 HCO3 ARTERIAL (BEAKER) (test oudq=955) 26 mmol/L 21-29 BASE EXCESS ARTERIAL (BEAKER) (test wimu=360) -1.0 mmol/L -2.0-3.0 PATIENT TEMPERATURE (BEAKER) (test ranq=3985) 36.7 C FIO2 (BEAKER) (test bamk=7261) 36.0 % Post-extubation ABGBLOOD GAS, [id number] 23:12:00 Test Item Value Reference Range Comments PH ARTERIAL (BEAKER) (test eezm=219) 7.34 7.35-7.45 PCO2 ARTERIAL (BEAKER) (test jdfb=174) 45 mmHg 35-45 PO2 ARTERIAL (BEAKER) (test nxfd=380) 111 mmHg 80-90 O2 SATURATION ARTERIAL (BEAKER) (test uqhs=472) 98.0 % 96.0-97.0 HCO3 ARTERIAL (BEAKER) (test oacv=279) 24 mmol/L 21-29 BASE EXCESS ARTERIAL (BEAKER) (test chru=075) -2.4 mmol/L -2.0-3.0 PATIENT TEMPERATURE (BEAKER) (test wajk=5574) 35.8 C FIO2 (BEAKER) (test xglt=6883) 40.0 % POCT-GLUCOSE [id number] 22:30:00 Test Item Value Reference Range Comments POC-GLUCOSE METER (BEAKER) 214 mg/dL 70-110 TESTED AT [place] [id number] [facility] (test qwcn=7546) [facility] [address] POCT-GLUCOSE [id number] 22:29:00 Test Item Value Reference Range Comments POC-GLUCOSE METER (BEAKER) 197 mg/dL 70-110 TESTED AT [address] (test ynux=4955) [facility] [address] POCT-GLUCOSE [id number] 22:29:00 Test Item Value Reference Range Comments POC-GLUCOSE METER (BEAKER) 193 mg/dL 70-110 TESTED AT [address] (test afys=2091) [place] [address] [id number] 19:50:00 Test Item Value Reference Range Comments SODIUM (BEAKER) (test pqrx=260) 141 meq/L 136-145 BASIC METABOLIC [id number] 19:47:00 Test Item Value Reference Range Comments SODIUM (BEAKER) (test 141 meq/L 136-145 nauj=100) POTASSIUM (BEAKER) (test 4.6 meq/L 3.5-5.1 hkfd=750) CHLORIDE (BEAKER) (test 113 meq/L 98-107 nrkv=932) CO2 (BEAKER) (test 18 meq/L 22-29 ecmw=874) BLOOD UREA NITROGEN 25 mg/dL 7-21 (BEAKER) (test apdt=299) CREATININE (BEAKER) (test 0.80 mg/dL 0.57-1.25 nfse=586) GLUCOSE RANDOM (BEAKER) 169 mg/dL 70-105 (test ycie=255) CALCIUM (BEAKER) (test 8.9 mg/dL 8.4-10.2 rufr=735) EGFR (BEAKER) (test mL/min/1.73 sq m INSUFFICIENT CLINICAL DATA rtjz=8969) TO CALCULATE ESTIMATED GFR. [id number] 19:18:00 Test Item Value Reference Range Comments POTASSIUM (BEAKER) (test riby=795) 4.6 meq/L 3.5-5.1 [id number] 19:18:00 Test Item Value Reference Range Comments MAGNESIUM (BEAKER) (test rmqb=388) 2.6 mg/dL 1.6-2.6 [id number] 19:18:00 Test Item Value Reference Range Comments PHOSPHORUS (BEAKER) (test upri=598) 2.8 mg/dL 2.3-4.7 [id number] 19:18:00 Test Item Value Reference Range Comments GLUCOSE RANDOM (BEAKER) (test ivto=592) 169 mg/dL 70-105 Effective 09/16/2014: Reference Range Change-Adult onlyNew: 70-105 Previous : [id number] 19:15:00 Test Item Value Reference Range Comments PARTIAL THROMBOPLASTIN TIME (BEAKER) (test 32.7 seconds 22.5-36.0 bbcc=584) [id number] 19:15:00 Test Item Value Reference Range Comments FIBRINOGEN LEVEL (BEAKER) (test wpjk=358) 181 mg/dl 225-434 LACTIC ACID, ARTERIAL, WHOLE [id number] 19:15:00 Test Item Value Reference Range Comments LACTATE BLOOD ARTERIAL (2) (BEAKER) (test 0.9 mmol/L 0.5-2.2 qeqe=4882) Effective 03/02/2016: Units/Reference Range ChangeNew: 0.5-2.2 mmol/L Previous: 5 -20 mg/dLPROTHROMBIN [id number] 19:14:00 Test Item Value Reference Range Comments PROTIME (BEAKER) (test kdkn=202) 18.7 seconds 11.7-14.7 INR (BEAKER) (test uwmo=909) 1.6 <=5.9 RECOMMENDED COUMADIN/WARFARIN INR THERAPY RANGESSTANDARD DOSE: 2.0 - 3.0 Includes: PROPHYLAXIS forvenous thrombosis, systemic embolization; TREATMENT for venous thrombosis and/or pulmonary embolus.HIGH RISK: Target INR is 2.5-3.5 for patients with mechanical heart valves.CBC W/PLT COUNT & AUTO [id number] 19:09:00 Test Item Value Reference Range Comments WHITE BLOOD CELL COUNT (BEAKER) (test xbxh=686) 6.4 K/ L 3.5-10.5 RED BLOOD CELL COUNT (BEAKER) (test xbag=834) 3.50 M/ L 3.93-5.22 HEMOGLOBIN (BEAKER) (test ebvh=243) 10.4 GM/DL 11.2-15.7 HEMATOCRIT (BEAKER) (test ivxx=122) 31.0 % 34.1-44.9 MEAN CORPUSCULAR VOLUME (BEAKER) (test nbty=127) 88.6 fL 79.4-94.8 MEAN CORPUSCULAR HEMOGLOBIN (BEAKER) (test 29.7 pg 25.6-32.2 kvpp=937) MEAN CORPUSCULAR HEMOGLOBIN CONC (BEAKER) (test 33.5 GM/DL 32.2-35.5 qykc=298) RED CELL DISTRIBUTION WIDTH (BEAKER) (test 15.7 % 11.7-14.4 jclc=981) PLATELET COUNT (BEAKER) (test jvpb=856) 53 K/CU MM 150-450 MEAN PLATELET VOLUME (BEAKER) (test bjcq=841) 12.0 fL 9.4-12.3 NUCLEATED RED BLOOD CELLS (BEAKER) (test 0 /100 WBC 0-0 zmzm=585) NEUTROPHILS RELATIVE PERCENT (BEAKER) (test 81 % iigw=138) LYMPHOCYTES RELATIVE PERCENT (BEAKER) (test 9 % qdkt=793) MONOCYTES RELATIVE PERCENT (BEAKER) (test 6 % xjsl=980) EOSINOPHILS RELATIVE PERCENT (BEAKER) (test 3 % hpud=739) BASOPHILS RELATIVE PERCENT (BEAKER) (test 0 % fciy=518) NEUTROPHILS ABSOLUTE COUNT (BEAKER) (test 5.15 K/ L 1.56-6.13 sxfw=632) LYMPHOCYTES ABSOLUTE COUNT (BEAKER) (test 0.60 K/ L 1.18-3.74 sfsp=380) MONOCYTES ABSOLUTE COUNT (BEAKER) (test pjyl=492) 0.41 K/ L 0.24-0.36 EOSINOPHILS ABSOLUTE COUNT (BEAKER) (test 0.16 K/ L 0.04-0.36 holm=730) BASOPHILS ABSOLUTE COUNT (BEAKER) (test yeyj=550) 0.01 K/ L 0.01-0.08 IMMATURE GRANULOCYTES-RELATIVE PERCENT (BEAKER) 1 % 0-1 (test tzdw=9648) OXYGEN SATURATION, [id number] 18:57:00 Test Item Value Reference Range Comments O2 SATURATION (MEASURED) (BEAKER) (test pyap=5462) 66.7 % CALCIUM, [id number] 18:57:00 Test Item Value Reference Range Comments CALCIUM IONIZED (BEAKER) (test hlop=377) 1.10 mmol/L 1.12-1.27 PH, BLOOD (BEAKER) (test dqtj=3664) 7.42 BLOOD GAS, [id number] 18:56:00 Test Item Value Reference Range Comments PH ARTERIAL (BEAKER) (test vzia=405) 7.42 7.35-7.45 PCO2 ARTERIAL (BEAKER) (test luvp=892) 32 mmHg 35-45 PO2 ARTERIAL (BEAKER) (test nqfi=629) 207 mmHg 80-90 O2 SATURATION ARTERIAL (BEAKER) (test pctb=902) 99.5 % 96.0-97.0 HCO3 ARTERIAL (BEAKER) (test wnld=152) 21 mmol/L 21-29 BASE EXCESS ARTERIAL (BEAKER) (test whkd=052) -3.7 mmol/L -2.0-3.0 PATIENT TEMPERATURE (BEAKER) (test mebc=7836) 34.3 C FIO2 (BEAKER) (test upzh=9370) 40.0 % [id number] 18:04:00 Test Item Value Reference Range Comments ACTIVATED CLOTTING TIME > sec OUTSIDE MEASURING RANGETESTED AT (BEAKER) (test vuxq=821) [facility] [address] [facility] [address] [id number] 18:04:00 Test Item Value Reference Range Comments ACTIVATED CLOTTING TIME > sec OUTSIDE MEASURING RANGETESTED AT (BEAKER) (test jxex=299) [facility] [address] [facility] [address] THROMBOELASTOGRAPH ([id number])[id number] 17:31:00 Test Item Value Reference Range Comments TEG ACTIVATED CLOTTING TIME (BEAKER) (test 9.1 minutes 4.0-7.0 tswc=6555) TEG FIBRINOGEN ACTIVITY (BEAKER) (test 63.0 degrees 61.0-73.0 evxs=8430) TEG PLT. AGGREGATION (BEAKER) (test nvsf=0298) 58.2 MM 55.0-65.0 TGH ACTIVATED CLOTTING TIME (BEAKER) (test 9.1 minutes 4.0-7.0 xxsv=8077) [facility] FIBRINOGEN ACTIVITY (BEAKER) (test 63.9 degrees 61.0-73.0 wrty=2307) [facility] PLT. AGGREGATION (BEAKER) (test ocrf=3174) 57.0 MM 55.0-65.0 [id number] 17:11:00 Test Item Value Reference Range Comments FIBRINOGEN LEVEL (BEAKER) (test xzul=613) 203 mg/dl 225-434 [id number] 17:06:00 Test Item Value Reference Range Comments PARTIAL THROMBOPLASTIN TIME (BEAKER) (test 35.4 seconds 22.5-36.0 ogdj=904) PROTHROMBIN [id number] 17:05:00 Test Item Value Reference Range Comments PROTIME (BEAKER) (test ojvr=727) 21.6 seconds 11.7-14.7 INR (BEAKER) (test paey=686) 1.9 <=5.9 RECOMMENDED COUMADIN/WARFARIN INR THERAPY RANGESSTANDARD DOSE: 2.0 - 3.0 Includes: PROPHYLAXIS forvenous thrombosis, systemic embolization; TREATMENT for venous thrombosis and/or pulmonary embolus.HIGH RISK: Target INR is 2.5-3.5 for patients with mechanical heart valves.POTASSIUM-STAT [id number] 16:58:00 Test Item Value Reference Range Comments POTASSIUM (BEAKER) (test vrmo=505) 5.0 meq/L 3.6-5.5 CALCIUM, [id number] 16:58:00 Test Item Value Reference Range Comments CALCIUM IONIZED (BEAKER) (test uvtn=750) 0.98 mmol/L 1.12-1.27 PH, BLOOD (BEAKER) (test dbxd=5900) 7.34 BLOOD GAS, [id number] 16:58:00 Test Item Value Reference Range Comments PH ARTERIAL (BEAKER) (test vkua=011) 7.34 7.35-7.45 PCO2 ARTERIAL (BEAKER) (test jkre=901) 35 mmHg 35-45 PO2 ARTERIAL (BEAKER) (test moak=714) 424 mmHg 80-90 O2 SATURATION ARTERIAL (BEAKER) (test xomy=841) 99.8 % 96.0-97.0 HCO3 ARTERIAL (BEAKER) (test sqyj=370) 19 mmol/L 21-29 BASE EXCESS ARTERIAL (BEAKER) (test tgjk=626) -6.7 mmol/L -2.0-3.0 PATIENT TEMPERATURE (BEAKER) (test ghwh=2639) 36.0 C FIO2 (BEAKER) (test pcly=9043) 100.0 % SODIUM NA-STAT [id number] 16:58:00 Test Item Value Reference Range Comments SODIUM (BEAKER) (test cmhh=391) 131 meq/L 135-148 GLUCOSE-STAT [id number] 16:58:00 Test Item Value Reference Range Comments GLUCOSE RANDOM (BEAKER) (test rghe=433) 190 mg/dL 70-110 HGB/HCT (H&H) - STAT [id number] 16:58:00 Test Item Value Reference Range Comments HEMOGLOBIN (BEAKER) (test fsry=584) 10.0 g/dL 12.0-15.0 HEMATOCRIT (BEAKER) (test ydaq=486) 29.0 % 36.0-45.0 PLATELET [id number] 16:40:00 Test Item Value Reference Range Comments PLATELET COUNT (BEAKER) (test kbvc=002) 64 K/CU MM 150-450 SODIUM NA-STAT [id number] 16:34:00 Test Item Value Reference Range Comments SODIUM (BEAKER) (test opcj=694) 130 meq/L 135-148 GLUCOSE-STAT [id number] 16:34:00 Test Item Value Reference Range Comments GLUCOSE RANDOM (BEAKER) (test hfrq=563) 161 mg/dL 70-110 HGB/HCT (H&H) - STAT [id number] 16:34:00 Test Item Value Reference Range Comments HEMOGLOBIN (BEAKER) (test qcch=586) 7.5 g/dL 12.0-15.0 HEMATOCRIT (BEAKER) (test czbm=600) 22.0 % 36.0-45.0 CALCIUM, [id number] 16:34:00 Test Item Value Reference Range Comments CALCIUM IONIZED (BEAKER) (test pbgi=969) 1.11 mmol/L 1.12-1.27 PH, BLOOD (BEAKER) (test isgc=0543) 7.41 BLOOD GAS, [id number] 16:34:00 Test Item Value Reference Range Comments PH ARTERIAL (BEAKER) (test kckx=307) 7.41 7.35-7.45 PCO2 ARTERIAL (BEAKER) (test csfu=924) 33 mmHg 35-45 PO2 ARTERIAL (BEAKER) (test wixm=100) 295 mmHg 80-90 O2 SATURATION ARTERIAL (BEAKER) (test jfmp=478) 99.7 % 96.0-97.0 HCO3 ARTERIAL (BEAKER) (test fwou=153) 21 mmol/L 21-29 BASE EXCESS ARTERIAL (BEAKER) (test kafa=363) -3.8 mmol/L -2.0-3.0 PATIENT TEMPERATURE (BEAKER) (test slof=5721) 36.2 C FIO2 (BEAKER) (test zjhd=2945) 90.0 % POTASSIUM-STAT [id number] 16:33:00 Test Item Value Reference Range Comments POTASSIUM (BEAKER) (test nmhc=208) 5.4 meq/L 3.6-5.5 POTASSIUM-STAT [id number] 15:48:00 Test Item Value Reference Range Comments POTASSIUM (BEAKER) (test kpzk=567) 5.2 meq/L 3.6-5.5 BLOOD GAS, [id number] 15:48:00 Test Item Value Reference Range Comments PH ARTERIAL (BEAKER) (test dgru=724) 7.45 7.35-7.45 PCO2 ARTERIAL (BEAKER) (test zfxg=249) 32 mmHg 35-45 PO2 ARTERIAL (BEAKER) (test gbwd=020) 272 mmHg 80-90 O2 SATURATION ARTERIAL (BEAKER) (test rwxe=958) 99.7 % 96.0-97.0 HCO3 ARTERIAL (BEAKER) (test hpcr=476) 23 mmol/L 21-29 BASE EXCESS ARTERIAL (BEAKER) (test ddls=697) -2.1 mmol/L -2.0-3.0 PATIENT TEMPERATURE (BEAKER) (test fjvs=9117) 31.5 C FIO2 (BEAKER) (test znnc=0341) 70.0 % SODIUM NA-STAT [id number] 15:48:00 Test Item Value Reference Range Comments SODIUM (BEAKER) (test xihm=752) 132 meq/L 135-148 GLUCOSE-STAT [id number] 15:48:00 Test Item Value Reference Range Comments GLUCOSE RANDOM (BEAKER) (test jxzd=252) 116 mg/dL 70-110 HGB/HCT (H&H) - STAT [id number] 15:48:00 Test Item Value Reference Range Comments HEMOGLOBIN (BEAKER) (test jxlb=265) 6.3 g/dL 12.0-15.0 HEMATOCRIT (BEAKER) (test xuck=073) 19.0 % 36.0-45.0 HGB/HCT (H&H) - STAT [id number] 14:17:00 Test Item Value Reference Range Comments HEMOGLOBIN (BEAKER) (test smck=023) 10.2 g/dL 12.0-15.0 HEMATOCRIT (BEAKER) (test tyas=628) 30.0 % 36.0-45.0 BLOOD GAS, [id number] 14:16:00 Test Item Value Reference Range Comments PH ARTERIAL (BEAKER) (test difl=017) 7.50 7.35-7.45 PCO2 ARTERIAL (BEAKER) (test pmyz=730) 30 mmHg 35-45 PO2 ARTERIAL (BEAKER) (test wmzi=205) 555 mmHg 80-90 O2 SATURATION ARTERIAL (BEAKER) (test xsxq=289) 99.9 % 96.0-97.0 HCO3 ARTERIAL (BEAKER) (test qpmy=679) 23 mmol/L 21-29 BASE EXCESS ARTERIAL (BEAKER) (test pfmy=469) -0.1 mmol/L -2.0-3.0 PATIENT TEMPERATURE (BEAKER) (test true=7468) 36.5 C FIO2 (BEAKER) (test pklk=8959) 100.0 % GLUCOSE-STAT [id number] 14:13:00 Test Item Value Reference Range Comments GLUCOSE RANDOM (BEAKER) (test nzpt=672) 104 mg/dL 70-110 SODIUM NA-STAT [id number] 14:13:00 Test Item Value Reference Range Comments SODIUM (BEAKER) (test adkq=563) 136 meq/L 135-148 POTASSIUM-STAT [id number] 14:13:00 Test Item Value Reference Range Comments POTASSIUM (BEAKER) (test kpmk=187) 3.9 meq/L 3.6-5.5 HEMOGLOBIN [id number] 15:10:00 Test Item Value Reference Range Comments HEMOGLOBIN A1C (BEAKER) (test yiaf=791) 7.4 % 4.3-6.1 BASIC METABOLIC [id number] 11:36:00 Test Item Value Reference Range Comments SODIUM (BEAKER) (test 138 meq/L 136-145 edev=060) POTASSIUM (BEAKER) (test 4.4 meq/L 3.5-5.1 zrdc=881) CHLORIDE (BEAKER) (test 108 meq/L 98-107 nosi=631) CO2 (BEAKER) (test 22 meq/L 22-29 pqwz=154) BLOOD UREA NITROGEN 31 mg/dL 7-21 (BEAKER) (test gmtp=698) CREATININE (BEAKER) (test 1.11 mg/dL 0.57-1.25 pgxa=545) GLUCOSE RANDOM (BEAKER) 127 mg/dL 70-105 (test rhiy=954) CALCIUM (BEAKER) (test 9.6 mg/dL 8.4-10.2 icfc=512) EGFR (BEAKER) (test mL/min/1.73 sq m INSUFFICIENT CLINICAL DATA jxvd=8239) TO CALCULATE ESTIMATED GFR. PROTHROMBIN [id number] 11:29:00 Test Item Value Reference Range Comments PROTIME (BEAKER) (test wyqd=883) 14.2 seconds 11.7-14.7 INR (BEAKER) (test kjnw=517) 1.1 <=5.9 RECOMMENDED COUMADIN/WARFARIN INR THERAPY RANGESSTANDARD DOSE: 2.0 - 3.0 Includes: PROPHYLAXIS forvenous thrombosis, systemic embolization; TREATMENT for venous thrombosis and/or pulmonary embolus.HIGH RISK: Target INR is 2.5-3.5 for patients with mechanical heart valves.CBC W/PLT COUNT & AUTO [id number] 11:23:00 Test Item Value Reference Range Comments WHITE BLOOD CELL COUNT (BEAKER) (test vgbt=724) 6.6 K/ L 4.0-10.0 RED BLOOD CELL COUNT (BEAKER) (test eopi=190) 3.60 M/ L 4.00-5.00 HEMOGLOBIN (BEAKER) (test pgju=016) 11.5 GM/DL 12.0-15.0 HEMATOCRIT (BEAKER) (test etmg=873) 34.5 % 36.0-45.0 MEAN CORPUSCULAR VOLUME (BEAKER) (test zdgk=931) 95.8 fL 82.0-99.0 MEAN CORPUSCULAR HEMOGLOBIN (BEAKER) (test 31.8 pg 27.0-33.0 ewxo=313) MEAN CORPUSCULAR HEMOGLOBIN CONC (BEAKER) (test 33.2 GM/DL 32.0-36.0 rbhc=769) RED CELL DISTRIBUTION WIDTH (BEAKER) (test 11.9 % 10.3-14.2 jzhv=646) PLATELET COUNT (BEAKER) (test ubin=177) 121 K/CU MM 150-430 MEAN PLATELET VOLUME (BEAKER) (test ccls=677) 9.6 fL 6.5-10.5 NUCLEATED RED BLOOD CELLS (BEAKER) (test 0 /100 WBC 0-0 pmbv=173) NEUTROPHILS RELATIVE PERCENT (BEAKER) (test 76 % rieu=832) LYMPHOCYTES RELATIVE PERCENT (BEAKER) (test 13 % ltwg=606) MONOCYTES RELATIVE PERCENT (BEAKER) (test 8 % zmkn=733) EOSINOPHILS RELATIVE PERCENT (BEAKER) (test 4 % iioi=155) BASOPHILS RELATIVE PERCENT (BEAKER) (test 0 % useg=930) NEUTROPHILS ABSOLUTE COUNT (BEAKER) (test 4.99 K/ L 1.80-8.00 eamp=255) LYMPHOCYTES ABSOLUTE COUNT (BEAKER) (test 0.83 K/ L 1.48-4.50 guzu=237) MONOCYTES ABSOLUTE COUNT (BEAKER) (test 0.53 K/ L 0.00-1.30 mbin=846) EOSINOPHILS ABSOLUTE COUNT (BEAKER) (test 0.23 K/ L 0.00-0.50 mkay=740) BASOPHILS ABSOLUTE COUNT (BEAKER) (test 0.01 K/ L 0.00-0.20 ovvh=258) 0.00
[2019-01-23 12:26] LABS: Absolute Lymphocytes (CBC) 0.3 K/uL (0.7-4.9); Absolute Monocytes 0.6 K/uL (0.1-1.3); Basophils % 0.4 % (0-1.3); Eosinophils % 0.2 % (0-4.4); Hematocrit 26.5 % (36.0-45.0); Lymphocytes % 2.3 % (15.3-44.8); MPV 10.2 fL (7.6-11.3); Monocytes % 4.3 % (3.3-12.3); RBC Red Blood Cell Count 2.91 M/uL (3.86-4.86)
[2019-01-23 12:27] LABS: Protime INR 1.14
--- NOTE | 2019-01-23 12:36 | RAD REPORT ---
EXAM DESCRIPTION: Marie Single View01/23/2019 12:30 pm CLINICAL HISTORY: Shortness of breath COMPARISON: 2013 FINDINGS: Hezf-op-saywnpir bilateral pulmonary opacities with small pleural effusions. The heart is mildly enlarged. Postsurgical changes involve the chest. IMPRESSION: CHF
--- NOTE | 2019-01-23 12:45 | RAD REPORT ---
EXAM DESCRIPTION: USExtrem Venous W Compress Bil01/23/2019 12:36 pm CLINICAL HISTORY: Bilateral leg swelling COMPARISON: none FINDINGS: The common femoral, superficial femoral, popliteal and posterior tibial veins bilaterally are compressible and demonstrate augmentation. Doppler demonstrates good flow. IMPRESSION: No evidence of deep venous thrombosis involving either lower extremity.
[2019-01-23 12:53] LABS: Albumin 2.6 g/dL (3.4-5.0); Bilirubin Direct 0.2 mg/dL (0-0.2); Bilirubin Total 0.7 mg/dL (0.2-1.0); Magnesium 1.7 mg/dL (1.8-2.4); Potassium 4.3 mmol/L (3.5-5.1); Protein, Total 6.9 g/dL (6.4-8.2); Troponin (Emerg Dept Use Only) 0.18 ng/mL (0.0-0.045)
[2019-01-23 13:28] LABS: Blood Morphology Comment NOT SEEN (NOT SEEN); Platelet Estimate ADEQ; Urine White Blood Cell Casts OK
--- NOTE | 2019-01-23 13:38 | ER ---
Nurse's Notes [facility] Name: Christa Rubio Age: 73 yrs Sex: Female : 1945 Arrival Date: 01/23/2019 Time: 11:08 Bed 8 Private MD: Mich Joshua Diagnosis: Acute combined systolic (congestive) and diastolic (congestive) heart failure Presentation: 01/23 11:14 Presenting complaint: Patient states: SOB and bilateral feet swelling started a couple sv of days ago. Pt had a cholescystectomy last week. Transition of care: patient was not received from another setting of care. Onset of symptoms was January 21, 2019. Care prior to arrival: None. 11:14 Method Of Arrival: Wheelchair sv 11:14 Acuity: АННА 3 sv 12:19 Risk Assessment: Do you want to hurt yourself or someone else? Patient reports no ph desire to harm self or others. Initial Sepsis Screen: Does the patient meet any 2 criteria? No. Patient's initial sepsis screen is negative. Does the patient have a suspected source of infection? No. Patient's initial sepsis screen is negative. Triage Assessment: 11:14 General: Appears in no apparent distress. uncomfortable, well developed, Behavior is sv calm, cooperative, appropriate for age. Neuro: Level of Consciousness is awake, alert, obeys commands, Oriented to person, place, time, situation. Cardiovascular: Edema is 2+ to left foot, left toes, right foot and right toes. Respiratory: Reports shortness of breath at rest on exertion Respiratory effort is even, unlabored, Respiratory pattern is regular, symmetrical. Historical: - Allergies: 11:15 No Known Allergies; sv - PMHx: 11:15 Diabetes - NIDDM; Hypertension; sv - PSHx: 11:15 Bladder suspension; Hysterectomy; CABG; sv - Immunization history:: Adult Immunizations unknown. - Social history:: Smoking status: Patient/guardian denies using tobacco. - Ebola Screening: : No symptoms or risks identified at this time. Screenin:15 Abuse screen: Denies threats or abuse. Denies injuries from another. Nutritional ph screening: No deficits noted. Tuberculosis screening: No symptoms or risk factors identified. Fall Risk None identified. Assessment: 12:15 General: Appears in no apparent distress. comfortable, well groomed, Behavior is calm, ph cooperative, appropriate for age, Denies fever, chills. Pain: Denies pain. Neuro: Level of Consciousness is awake, alert, obeys commands, Oriented to person, place, time, situation. Cardiovascular: Reports shortness of breath, Denies chest pain, nausea, palpitations, vomiting, Capillary refill < 3 seconds in bilateral fingers Patient's skin is warm and dry. Pulses are palpable in right dorsalis pedis artery and left dorsalis pedis artery Edema is 2+ to left ankle, left foot, left toes, right ankle, right foot and right toes pitting to left toes and right toes Rhythm is sinus rhythm. Respiratory: Reports shortness of breath at rest Airway is patent Respiratory effort is even, unlabored, Respiratory pattern is regular, symmetrical, Breath sounds are clear bilaterally. GI: Surgical sites r/t recent cholecystectomy noted, healthy in appearance w/ no redness or drainage noted Reports diarrhea, Patient currently denies abdominal pain, nausea, vomiting. Derm: Skin is intact, is healthy with good turgor, Skin is pink, warm \T\ dry. Musculoskeletal: Circulation, motion, and sensation intact. Range of motion: intact in all extremities. 12:21 Reassessment: Patient appears in no apparent distress at this time. US at bedside. ph 13:30 Reassessment: Patient appears in no apparent distress at this time. Patient and/or hb family updated on plan of care and expected duration. Pain level reassessed. Patient is alert, oriented x 3, equal unlabored respirations, skin warm/dry/pink. 14:30 Reassessment: Patient appears in no apparent distress at this time. No changes from hb previously documented assessment. Patient and/or family updated on plan of care and expected duration. Pain level reassessed. Patient is alert, oriented x 3, equal unlabored respirations, skin warm/dry/pink. 15:30 Reassessment: Patient appears in no apparent distress at this time. No changes from hb previously documented assessment. Patient and/or family updated on plan of care and expected duration. Pain level reassessed. Patient is alert, oriented x 3, equal unlabored respirations, skin warm/dry/pink. Vital Signs: 11:15 BP 153 / 60; Pulse 77; Resp 22; Temp 98; Pulse Ox 93% on R/A; Weight 65.77 kg; Height 5 sv ft. 1 in. (154.94 cm); 12:21 BP 151 / 57; Pulse 76; Resp 18; Pulse Ox 96% on 2 lpm NC; ph 13:30 BP 153 / 63; Pulse 76; Resp 19; Pulse Ox 96% 2 lpm ; hb 14:30 BP 148 / 68; Pulse 74; Resp 19; Pulse Ox 97% on 2 lpm NC; hb 15:30 BP 142 / 72; Pulse 70; Resp 19; Pulse Ox 96% on 2 lpm NC; hb 11:15 Body Mass Index 27.40 (65.77 kg, 154.94 cm) sv 11:15 Pt placed on O2 \T\ 2L per NC. O2 sat u pto 97% sv ED Course: 11:08 Patient arrived in ED. ag5 11:09 Mich Joshua MD is Private Physician. ag5 11:15 Triage completed. sv 11:16 Arm band placed on. sv 11:18 Jennifer Herndon, ELIZA is Primary Nurse. hb 11:23 Dakota Clark NP is PHCP. pm1 11:23 Ronal Brock MD is Attending Physician. pm1 11:34 EKG done, by tomography technologist. reviewed by Dakota Clark NP. at1 12:14 X-ray completed. Portable x-ray completed in exam room. Patient tolerated procedure mh1 well. 12:14 Initial lab(s) drawn, by me, sent to lab. Missed attempt(s): 22 gauge in right forearm. ph antecubital area. Missed attempt(s): 22 gauge in left forearm. Bleeding controlled, band aid applied, catheter tip intact. Inserted saline lock: 20 gauge in left forearm, using aseptic technique. 12:17 XRAY Chest (1 view) In Process Unspecified. EDMS 12:19 Patient has correct armband on for positive identification. Placed in gown. Bed in low ph position. Call light in reach. Side rails up X2. [employer] on. Pulse ox on. NIBP on. Warm blanket given. 12:36 Extrem Venous W Compression Lenin US In Process Unspecified. EDMS 13:36 Lillie Catherine MD is Hospitalizing Provider. pm1 16:05 No provider procedures requiring assistance completed. Patient admitted, IV remains in hb place. Administered Medications: 14:41 Drug: Lasix 40 mg Route: IVP; Site: left antecubital; pc1 14:43 Drug: Lovenox 1 mg/kg Route: Sub-Q; Site: right lower abdomen; pc1 15:30 Follow up: Response: No adverse reaction hb Outcome: 13:37 Decision to Hospitalize by Provider. pm1 16:05 Admitted to Tele accompanied by tech, family with patient, via wheelchair, with oxygen, hb with chart, Report called to Malcolm KAY 16:05 Condition: stable 16:05 Instructed on the need for admit, Demonstrated understanding of instructions. 16:10 Patient left the ED. hb Signatures: Dispatcher [employer] EDSamia Trent RN RN Nata Lerma mh1 Opal Mehta, mica spreader EKG [facility] Birgit Tanner RN RN Dakota Clark, BACK GRAY CLOTH WASHER BACK GRAY CLOTH WASHER pm1 Jennifer Herndon RN RN Leslie Head ag5 Dakota Medina pc1 Corrections: (The following items were deleted from the chart) 14:43 14:42 Lovenox 1 mg/kg Sub-Q in abdomen pc1 pc1
--- NOTE | 2019-01-23 13:38 | EDPHYS ---
Physician Documentation [facility] Name: Christa Rubio Age: 73 yrs Sex: Female : 1945 Arrival Date: 01/23/2019 Time: 11:08 Bed 8 Private MD: Mich Joshua ED Physician Ronal Brock HPI: 01/23 12:00 This 73 yrs old Female presents to ER via Wheelchair with complaints of pm1 Shortness Of Breath, Feet Swelling. 12:00 The patient has shortness of breath with light activity. Onset: The symptoms/episode pm1 began/occurred 3 day(s) ago. The patient's shortness of breath is aggravated by exertion, light activity, is alleviated by nothing. Associated signs and symptoms: Pertinent negatives: chest pain, non-productive cough, productive cough, dizziness, fever, nausea, vomiting. Severity of symptoms: in the emergency department the symptoms are unchanged. The patient has experienced similar episodes in the past, a few times, history of CHF. The patient has been recently seen by a physician: with different complaint(s), Cholecystectomy on 01/12/2019. Historical: - Allergies: 11:15 No Known Allergies; sv - PMHx: 11:15 Diabetes - NIDDM; Hypertension; sv - PSHx: 11:15 Bladder suspension; Hysterectomy; CABG; sv - Immunization history:: Adult Immunizations unknown. - Social history:: Smoking status: Patient/guardian denies using tobacco. - Ebola Screening: : No symptoms or risks identified at this time. ROS: 12:30 Constitutional: Negative for fever, chills, and weight loss, Eyes: Negative for injury, pm1 pain, redness, and discharge, ENT: Negative for injury, pain, and discharge, Neck: Negative for injury, pain, and swelling, Cardiovascular: Negative for chest pain, palpitations, and edema. 12:30 Abdomen/GI: Negative for abdominal pain, nausea, vomiting, diarrhea, and constipation, Back: Negative for injury and pain, : Negative for injury, bleeding, discharge, and swelling, MS/Extremity: Negative for injury and deformity, Skin: Negative for injury, rash, and discoloration, Neuro: Negative for headache, weakness, numbness, tingling, and seizure. 12:30 Respiratory: Positive for shortness of breath, on exertion. Negative for cough, sputum production, wheezing. Exam: 12:30 Constitutional: This is a well developed, well nourished patient who is awake, alert, pm1 and in no acute distress. Head/Face: Normocephalic, atraumatic. Eyes: Pupils equal round and reactive to light, extra-ocular motions intact. Lids and lashes normal. Conjunctiva and sclera are non-icteric and not injected. Cornea within normal limits. Periorbital areas with no swelling, redness, or edema. ENT: Nares patent. No nasal discharge, no septal abnormalities noted. Tympanic membranes are normal and external auditory canals are clear. Oropharynx with no redness, swelling, or masses, exudates, or evidence of obstruction, uvula midline. Mucous membranes moist. Neck: Trachea midline, no thyromegaly or masses palpated, and no cervical lymphadenopathy. Supple, full range of motion without nuchal rigidity, or vertebral point tenderness. No Meningismus. Chest/axilla: Normal chest wall appearance and motion. Nontender with no deformity. No lesions are appreciated. Cardiovascular: Regular rate and rhythm with a normal S1 and S2. No gallops, murmurs, or rubs. Normal PMI, no JVD. No pulse deficits. Respiratory: Lungs have equal breath sounds bilaterally, clear to auscultation and percussion. No rales, rhonchi or wheezes noted. No increased work of breathing, no retractions or nasal flaring. 12:30 Back: No spinal tenderness. No costovertebral tenderness. Full range of motion. Skin: Warm, dry with normal turgor. Normal color with no rashes, no lesions, and no evidence of cellulitis. MS/ Extremity: Pulses equal, no cyanosis. Neurovascular intact. Full, normal range of motion. 12:30 Abdomen/GI: Inspection: abdomen appears normal, Bowel sounds: normal, Palpation: soft, nontender, in all quadrants. 12:30 Neuro: Orientation: is normal, Motor: is normal. 13:47 Abdomen/GI: Rectal exam: rectal tone normal, Stool: brown, guaiac negative, pm1 hemorrhoid(s), are not appreciated, mass, is not appreciated, swelling, is not appreciated, tenderness, is not appreciated, Jennifer RN choir teacher. Vital Signs: 11:15 BP 153 / 60; Pulse 77; Resp 22; Temp 98; Pulse Ox 93% on R/A; Weight 65.77 kg; Height 5 sv ft. 1 in. (154.94 cm); 12:21 BP 151 / 57; Pulse 76; Resp 18; Pulse Ox 96% on 2 lpm NC; ph 13:30 BP 153 / 63; Pulse 76; Resp 19; Pulse Ox 96% 2 lpm ; hb 14:30 BP 148 / 68; Pulse 74; Resp 19; Pulse Ox 97% on 2 lpm NC; hb 15:30 BP 142 / 72; Pulse 70; Resp 19; Pulse Ox 96% on 2 lpm NC; hb 11:15 Body Mass Index 27.40 (65.77 kg, 154.94 cm) sv 11:15 Pt placed on O2 \T\ 2L per NC. O2 sat u pto 97% sv MDM: 11:31 Patient medically screened. pm1 13:15 Data reviewed: vital signs. Data interpreted: Pulse oximetry: on room air is 96 %. pm1 Interpretation: normal. 13:26 Counseling: I had a detailed discussion with the patient and/or guardian regarding: the pm1 historical points, exam findings, and any diagnostic results supporting the discharge/admit diagnosis, lab results, radiology results, the need for further work-up and treatment in the hospital. 13:47 Physician consultation: Lillie Catherine MD was called at 13:47, was contacted at 13:47, pm1 regarding admission, patient's condition, and will see patient Request stool guaiac test due to anemia. Guaiac test negative. Therefore will give the patient Lovenox for elevated troponin. 01/23 11:43 Order name: Basic Metabolic Panel; Complete Time: 13:12 pm1 01/23 11:43 Order name: CBC with Diff; Complete Time: 13:32 pm1 01/23 11:43 Order name: LFT's; Complete Time: 13:12 pm1 01/23 11:43 Order name: Magnesium; Complete Time: 13:12 pm1 01/23 11:43 Order name: NT PRO-BNP; Complete Time: 13:12 pm1 01/23 11:43 Order name: PT-INR; Complete Time: 12:50 pm1 01/23 11:38 Order name: EKG Electrocardiogram EDMI 01/23 11:43 Order name: Troponin (emerg Dept Use Only); Complete Time: 13:12 pm1 01/23 11:43 Order name: XRAY Chest (1 view); Complete Time: 12:36 pm1 01/23 11:43 Order name: Extrem Venous W Compression Lenin US; Complete Time: 12:47 pm1 01/23 12:37 Order name: CBC Smear Scan; Complete Time: 13:32 EDMS 01/23 13:48 Order name: Occult Blood--Ancillary bd 01/23 11:43 Order name: Cardiac monitoring; Complete Time: 12:20 pm1 01/23 11:43 Order name: EKG - Nurse/Tech; Complete Time: 12:20 pm1 01/23 11:43 Order name: IV Saline Lock; Complete Time: 12:20 pm1 01/23 11:43 Order name: Labs collected and sent; Complete Time: 12:20 pm1 01/23 11:43 Order name: O2 Per Protocol; Complete Time: 12:20 pm1 01/23 11:43 Order name: O2 Sat Monitoring; Complete Time: 12:20 pm1 Administered Medications: 14:41 Drug: Lasix 40 mg Route: IVP; Site: left antecubital; pc1 14:43 Drug: Lovenox 1 mg/kg Route: Sub-Q; Site: right lower abdomen; pc1 15:30 Follow up: Response: No adverse reaction hb Disposition: 01/24 07:00 Co-signature as Attending Physician, Ronal Brock MD I agree with the assessment and oh plan of care. Disposition: 01/23/19 13:37 Hospitalization ordered by Lillie Catherine for Inpatient Admission. Preliminary diagnosis is Acute combined systolic (congestive) and diastolic (congestive) heart failure. - Bed requested for Telemetry/MedSurg (Inpatient). - Status is Inpatient Admission. hb - Condition is Stable. - Problem is new. - Symptoms have improved. UTI on Admission? No Signatures: Dispatcher [employer] Samia Gomez RN RN sv Hall, Patricia, RN RN ph Dakota Clark, LEARNING STRATEGIST LEARNING STRATEGIST pm1 Jennifer Herndon RN RN hb Appiah, William, MD MD wa Cantu, Patrick pc1 Ursula Keller kj1 Corrections: (The following items were deleted from the chart) 01/23 15:06 13:37 Hospitalization Ordered by Lillie Catherine MD for Inpatient Admission. Preliminary kj1 diagnosis is Acute combined systolic (congestive) and diastolic (congestive) heart failure. Bed requested for Telemetry/MedSurg (Inpatient). Status is Inpatient Admission. Condition is Stable. Problem is new. Symptoms have improved. UTI on Admission? No. pm1 16:10 15:06 01/23/2019 13:37 Hospitalization Ordered by Lillie Catherine MD for Inpatient hb Admission. Preliminary diagnosis is Acute combined systolic (congestive) and diastolic (congestive) heart failure. Bed requested for Telemetry/MedSurg (Inpatient). Status is Inpatient Admission. Condition is Stable. Problem is new. Symptoms have improved. UTI on Admission? No. kj1
[2019-01-23] MEDS ORDERED: ENOXAPARIN 80 MG/0.8 ML SQ ONE (14:37)
[2019-01-23] MEDS ORDERED: FUROSEMIDE 40 MG/4 ML VIAL ONE (14:37)
[2019-01-23] MEDS ORDERED: MAGNESIUM SULFATE 1 gm IVPB 1 GM/100 ML BAG IV ONE (17:00)
[2019-01-23 17:32] LABS: Urine Appearance CLEAR; Urine Bilirubin NEGATIVE (NEG); Urine Blood NEGATIVE (NEG); Urine Color YELLOW; Urine Glucose NEGATIVE (NEG); Urine Protein NEGATIVE (NEG); Urine Specific Gravity <=1.005 (1.005-1.030); Urine Urobilinogen 0.2 mg/dL (0.2-1.0)
[2019-01-23 17:53] LABS: Urine Microscopic Reflex NO UMIC
--- NOTE | 2019-01-23 18:08 | P.HP ---
Certification for Inpatient Patient admitted to: Inpatient With expected LOS: >2 Midnights Practitioner: I am a practitioner with admitting privileges, knowledge of patient current condition, hospital course, and medical plan of care. Services: Services provided to patient in accordance with Admission requirements found in Title 42 Section 412.3 of the Code of Federal Regulations Patient History Date of Service: 01/23/19 Reason for admission: Lower extremity swelling, shortness of breath History of Present Illness: This is a 73-year-old female with history of CHF, hypertension, diabetes, CAD with CABG 1 and half years ago admitted for lower extremity swelling and shortness of breath with exertion. Per patient, for the past 2 days she has been having progressively worsening swelling in bilateral lower extremities and progressively worsening shortness of breath with exertion. She denies any chest pain, fevers, chills, abdominal pain, nausea or vomiting. She states that her appetite is decreased and staying very little since after her surgery. Of note, patient had a cholecystectomy 6 days ago, and states that she is doing well from that aspect. In the ER, patient was hemodynamically stable, her labs were remarkable for BNP of 8839 and troponin of 0.18. Her venous studies were negative for DVT. Her chest x-ray was remarkable for mild to moderate pulmonary opacities with small pleural effusions, CHF. She received IV Lasix for diuresis and Lovenox for presumed elevated troponins. At the time of my exam, patient was alert oriented x3, in no acute distress and was hemodynamically stable. Allergies No Known Allergies Allergy (Verified 05/15/17 13:44) Home Medications: Atorvastatin Calcium [Lipitor] 40 mg PO BEDTIME 01/09/19 Furosemide 20 mg PO DAILY 01/09/19 Labetalol HCl [Trandate*] 300 mg PO BID 01/09/19 Spironolactone 25 mg PO DAILY 01/09/19 glipiZIDE [Glucotrol*] 5 mg PO DAILY 01/09/19 Metformin ER [Glucophage ER] 1,000 mg PO DAILY 01/23/19 Nifedipine [Adalat cc] 120 mg PO DAILY 01/23/19 - Past Medical/Surgical History Has patient received pneumonia vaccine in the past: Yes Diabetic: Yes -: Type 2 diabetes -: HTN -: Hyperlipidemia -: CHF -: Coronary artery disease -: CABG Triple May 2018 -: R eye cataract removal - Social History Smoking Status: Never smoker Alcohol use: No CD- Drugs: No Caffeine use: No Place of Residence: Home Review of Systems 10-point ROS is otherwise unremarkable Physical Examination - Vital Signs Temperature: 97.8 F Blood Pressure: 153/63 Pulse: 74 Respirations: 19 Pulse Ox (%): 96 - Physical Exam General: Alert, In no apparent distress, Oriented x3 HEENT: Atraumatic, PERRLA, Mucous membr. moist/pink, EOMI, Sclerae nonicteric Neck: Supple, 2+ carotid pulse no bruit, No LAD, Without JVD or thyroid abnormality Respiratory: Dull, Crackles/rales Cardiovascular: Regular rate/rhythm, Normal S1 S2, Edema (2+, bilateral lower extremity, pitting) Gastrointestinal: Normal bowel sounds, No tenderness Musculoskeletal: No tenderness Integumentary: No rashes Neurological: Normal gait, Normal speech, Normal strength at 5/5 x4 extr, Normal tone, Normal affect Lymphatics: No axilla or inguinal lymphadenopathy - Studies Laboratory Data (last 24 hrs) 01/23/19 12:05: PT 13.4 H, INR 1.14 01/23/19 12:05: WBC 12.9 H D, Hgb 8.9 L D, Hct 26.5 L D, Plt Count 242 D 01/23/19 12:05: Sodium 138, Potassium 4.3, BUN 28 H D, Creatinine 1.21, Glucose 213 H, Magnesium 1.7 L, Total Bilirubin 0.7, AST 15, ALT 18, Alkaline Phosphatase 80 Assessment and Plan - Problems (Diagnosis) (1) Swelling of lower extremity Current Visit: Yes Status: Acute (2) CHF exacerbation Current Visit: Yes Status: Acute Qualifiers: Heart failure type: diastolic Qualified Code(s): I50.33 - Acute on chronic diastolic (congestive) heart failure (3) Elevated troponin Current Visit: Yes Status: Acute (4) Acute anemia Current Visit: Yes Status: Acute (5) DM2 (diabetes mellitus, type 2) Current Visit: No Status: Chronic Qualifiers: Diabetes mellitus intermediate insulin use: without intermediate use Diabetes mellitus complication status: without complication Qualified Code(s): E11.9 - Type 2 diabetes mellitus without complications (6) HTN (hypertension) Current Visit: No Status: Chronic Qualifiers: Hypertension type: essential hypertension (7) History of coronary artery bypass graft Current Visit: No Status: Chronic (8) History of coronary artery disease Current Visit: No Status: Chronic (9) Hyperlipidemia Current Visit: No Status: Chronic Qualifiers: Hyperlipidemia type: unspecified Qualified Code(s): E78.5 - Hyperlipidemia , unspecified - Plan This is a 73-year-old female with: CHF exacerbation Diastolic congestive heart failure, chronic. Aggressive IV diuresis. Recent echo on 01/10/2019 with ejection fraction of 60-69%, dilated. Strict I&Os, daily weights Hold Norvasc Elevated troponins History of coronary artery disease with CABG On likely that this is any can angina. The patient has was factors. Will trend Consult cardiology Acute anemia At last visit patient with hemoglobin of 12, hemoglobin of 8.9. No evidence of bleeding Stool culture done in the ER, negative Will continue to monitor Hypertension Stable, will restart home medications. Will hold Norvasc Pdx-hgofyoo-qbmczmocy diabetes mellitus. Accu-Cheks and mild sliding scale insulin Hyperlipidemia Stable, will restart home medication DVT prophylaxis: Lovenox GI prophylaxis: None Diet: 1800 diabetic, 1 L fluid restriction Disposition: Admit to the floor with tele. Pending symptomatic improvement Discharge Plan: Home - Advance Directives Does patient have a Living Will: No Does patient have a Durable POA for Healthcare: No Critical Care: No Time Spent Managing Pts Care (In Minutes): 55
[2019-01-23] MEDS ORDERED: FUROSEMIDE 40 MG/4 ML VIAL IV SCH (19:00)
--- NOTE | 2019-01-23 20:21 | EKG ---
Test Date: 2019-01-23 Test Time: 11:23:40 Plumbing Manager: MAME MEASUREMENT RESULTS: Intervals: Rate: 78 AR: 146 QRSD: 82 QT: 376 QTc: 428 Hassell: P: 78 AR: 146 QRS: -9 T: 155 INTERPRETIVE STATEMENTS: Normal sinus rhythm Left ventricular hypertrophy with repolarization abnormality Abnormal ECG No previous ECG available for comparison Electronically Signed On 01-23-19 20:20:13 CDT by Oumar Olson
[2019-01-23] MEDS: ATORVASTATIN 40 MG TAB PO SCH (21:03)
[2019-01-23] MEDS: LABETALOL HCL 100 MG TAB PO SCH (21:04)
[2019-01-24 04:21] LABS: Absolute Lymphocytes (CBC) 0.5 K/uL (0.7-4.9); Absolute Monocytes 0.6 K/uL (0.1-1.3); Basophils % 0.5 % (0-1.3); Eosinophils % 0.9 % (0-4.4); Hematocrit 25.1 % (36.0-45.0); Lymphocytes % 5.6 % (15.3-44.8); MPV 10.6 fL (7.6-11.3); Monocytes % 6.9 % (3.3-12.3); RBC Red Blood Cell Count 2.74 M/uL (3.86-4.86)
[2019-01-24 04:25] LABS: Albumin 2.5 g/dL (3.4-5.0); Bilirubin Total 0.6 mg/dL (0.2-1.0); Potassium 4.2 mmol/L (3.5-5.1); Protein, Total 6.4 g/dL (6.4-8.2); Troponin I 0.32 ng/mL (0.0-0.045)
[2019-01-24 08:07] LABS: Magnesium 1.9 mg/dL (1.8-2.4); Phosphorus 2.7 mg/dL (2.5-4.9)
--- NOTE | 2019-01-24 08:33 | RAD REPORT ---
EXAM DESCRIPTION: Marie Pa And Lat (2 Views)01/24/2019 6:44 am CLINICAL HISTORY: Cough COMPARISON: January 23, 2019 FINDINGS: Mild improvement in the bilateral pulmonary opacities. Pleural effusions persist. Heart is mildly enlarged Postsurgical changes involve the chest IMPRESSION: Mild improvement in CHF
[2019-01-24] MEDS: FUROSEMIDE 40 MG/4 ML VIAL IV SCH ×2 (08:48→16:10)
[2019-01-24] MEDS ORDERED: REGADENOSON 0.4 MG/5 ML SYR IV ONE (08:49)
[2019-01-24] MEDS: SPIRONOLACTONE 25 MG TABLET PO SCH (08:49)
[2019-01-24] MEDS: LABETALOL HCL 100 MG TAB PO SCH ×3 (08:55→20:15)
--- NOTE | 2019-01-24 09:10 | CON ---
Chief Complaint: Swelling. Reason For Consult: Abnormal troponins. History Of Present Illness: Ms. Rubio has been feeling quite short of breath for some time and hav ing swelling in her ankles for 2 weeks. She had coronary bypass surgery about a year and a half ago, and was at [facility] in [place]. We do not have any records from the surgery or the consumer recruiter who saw her before. She has underlying hypertension and diabetes. Outpatient Medications: Nifedipine 120, metformin 1000 b.i.d., Lasix 20, glipizide 5, labetalol 300 b.i.d., atorvastatin 40, spironolactone 25. She denies chest pain. She feels much better since she has had some diuresis. Physical Examination: Vital Signs: 5 feet 11 inches, 153 pounds, mildly overweight. HEENT: Normal. Lungs: No crackles or wheeze. Heart: Regular rate and rhythm. No significant murmur. There seems to be an S4 gallop. Abdomen: Soft. Extremities: Unremarkable. The edema she had seems to have resolved. Impression: I would recommend we get an echo and pharmacologic stress test to evaluate her heart. I suspect she has heart failure with depressed ejection fraction. ALEJANDRINA/DAYRON Voice ID: [id number] Report ID: [id number]
--- NOTE | 2019-01-24 11:18 | ECHO ---
HEIGHT: 5 ft 1 in WEIGHT: 153 lb 8 oz DATE OF STUDY: 01/24/[address]: Oumar Olson MD 2-DIMENSIONAL: YES M.MODE: YES DOPPLER: YES COLOR FLOW: YES TDS: NO PORTABLE: NO DEFINITY: NO BUBBLE STUDY: NO DIAGNOSIS: CONGESTIVE HEART FAILURE CARDIAC HISTORY: CATHERIZATION: YES SURGERY: CORONARY ARTERY BYPASS GRAFT PROSTHETIC VALVE: NO PACEMAKER: NO MEASUREMENTS (cm) DIASTOLIC (NORMALS) SYSTOLIC (NORMALS) IVSd 1.7 (0.6-1.2) LA Diam 4.4 (1.9-4.0) LVEF 64% LVIDd 3.4 (3.5-5.7) LVIDs 2.2 (2.0-3.5) %FS 34% LVPWd 1.7 (0.6-1.2) Ao Diam 2.2 (2.0-3.7) 2 DIMENSIONAL ASSESSMENT: RIGHT ATRIUM: NORMAL LEFT ATRIUM: DILATED RIGHT VENTRICLE: NORMAL LEFT VENTRICLE: LEFT VENTRICULAR HYPERTROPHY TRICUSPID VALVE: NORMAL MITRAL VALVE: MITRAL ANNULAR CALCIFICATION PULMONIC VALVE: NORMAL AORTIC VALVE: MILD THICKENING, TRICUSPID PERICARDIAL EFFUSION: NORMAL AORTIC ROOT: NORMAL LEFT VENTRICULAR WALL MOTION: NORMAL. DOPPLER/COLOR FLOW: MILD MITRAL REGURGITATION, MILD TO MODERATE TRICUSPID REGURGITATION. SEVERE PULMONARY HYPERTENSION. ESTIMATED RIGHT VENTRICULAR SYSTOLIC PRESSURE 79mmHg. COMMENTS: NORMAL LEFT VENTRICULAR EJECTION FRACTION. LEFT VENTRICULAR HYPERTROPHY. DILATED LEFT ATRIUM. MITRAL ANNULAR CALCIFICATION WITH NO AORTIC STENOSIS/ AORTIC REGURGITATION. MILD MITRAL REGURGITATION. MILD-MODERATE TRICUSPID REGURGITATION. SEVERE PULMONARY HYPERTENSION. TECHNOLOGIST: REBA GARAY
--- NOTE | 2019-01-24 12:56 | RAD REPORT ---
EXAM DESCRIPTION: NM - Rest Stress Cardiac Imaging - 01/24/2019 12:40 pm CLINICAL HISTORY: Chest pain. COMPARISON: None. TECHNIQUE: The patient was administered approximately 10mCi of Tc 99m Sestamibi prior to resting SPE CT imaging of the heart. The patient was then administered approximately 30 mCi of Tc 99m Sestamibi f ollowing exercise or pharmacologic stress. Multiplanar SPECT images were reviewed. FINDINGS: Stress and rest images demonstrate moderate area of diminished radiotracer uptake involvin g the anterior apical left ventricular myocardium. Moderate area of diminished radiotracer uptake involves the septal left ventricular myocardium on res t and stress images. The left ventricular ejection fraction equals 46% IMPRESSION: Moderate fixed perfusion defect involving the anterior apical left ventricular myocardiu m probably indicating an infarct Moderate fixed perfusion defect involving the septal left ventricular myocardium probably indicating an infarct No evidence of stress-induced ischemia
--- NOTE | 2019-01-24 13:19 | P.PN ---
Subjective Date of Service: 01/24/19 Chief Complaint: Lower extremity swelling, shortness of breath Subjective: Improving Patient seen and examined at bedside. No family at bedside. Chart reviewed and case discussed with nursing staff Patient admitted for shortness of breath due to CHF exacerbation. She reports improved breathing and LE swelling. Denies any chest pain, nausea/vomiting, headaches, vision changes, lightheadedness this am. Review of Systems 10-point ROS is otherwise unremarkable Physical Examination - Vital Signs Temperature: 98.5 F Blood Pressure: 163/71 Pulse: 81 Respirations: 16 Pulse Ox (%): 91 - Physical Exam General: Alert, In no apparent distress, Oriented x3 HEENT: Atraumatic, PERRLA, EOMI Neck: Supple, JVD not distended Respiratory: Dull, Crackles/rales Cardiovascular: Regular rate/rhythm, Normal S1 S2, Edema (1+ Bilateral LE) Gastrointestinal: Normal bowel sounds, No tenderness Musculoskeletal: No tenderness Integumentary: No rashes Neurological: Normal speech, Normal tone, Normal affect Lymphatics: No axilla or inguinal lymphadenopathy - Studies Laboratory Data (last 24 hrs) 01/23/19 12:05: Hgb 8.9 L D Assessment And Plan - Current Problems (Diagnosis) (1) Swelling of lower extremity Current Visit: Yes Status: Acute (2) CHF exacerbation Current Visit: Yes Status: Acute Qualifiers: Heart failure type: diastolic Qualified Code(s): I50.33 - Acute on chronic diastolic (congestive) heart failure (3) Elevated troponin Current Visit: Yes Status: Acute (4) Acute anemia Current Visit: Yes Status: Acute (5) DM2 (diabetes mellitus, type 2) Current Visit: No Status: Chronic Qualifiers: Diabetes mellitus simulation analyst insulin use: without mcfp use Diabetes mellitus complication status: without complication Qualified Code(s): E11.9 - Type 2 diabetes mellitus without complications (6) HTN (hypertension) Current Visit: No Status: Chronic Qualifiers: Hypertension type: essential hypertension Qualified Code(s): I10 - Essential (primary) hypertension (7) History of coronary artery bypass graft Current Visit: No Status: Chronic (8) History of coronary artery disease Current Visit: No Status: Chronic (9) Hyperlipidemia Current Visit: No Status: Chronic Qualifiers: Hyperlipidemia type: unspecified Qualified Code(s): E78.5 - Hyperlipidemia , unspecified - Plan This is a 73-year-old female with: CHF exacerbation Diastolic congestive heart failure, chronic. Continue aggressive IV diuresis. Recent echo on 01/10/2019 with ejection fraction of 60-69%, dilated. Repeat echo per cardiology. Strict I&Os, daily weights Hold Norvasc Wean off of oxygen as tolerated. Elevated troponins History of coronary artery disease with CABG Consult cardiology. Recommendations appreciated. Patient pending a cardiac stress test today. Acute anemia At last visit patient with hemoglobin of 12, hemoglobin of 8.9. No evidence of bleeding Stool occult done in the ER, negative Will continue to monitor Hypertension Stable, will continue home medications. Will hold Norvasc Izl-lpmhjkq-xjwcegknz diabetes mellitus. Accu-Cheks and mild sliding scale insulin Hyperlipidemia Stable, will restart home medication DVT prophylaxis: Lovenox GI prophylaxis: None Diet: 1800 diabetic, 1 L fluid restriction Disposition: Continue IV diuresis, Pending symptomatic improvement and cardiac testing. Possible discharge home inthe next 24-48 hrs
[2019-01-24 15:40] VITALS: BMI 29.0
[2019-01-24] MEDS: ATORVASTATIN 40 MG TAB PO SCH (20:15)
[2019-01-25 06:09] LABS: Absolute Lymphocytes (CBC) 0.5 K/uL (0.7-4.9); Absolute Monocytes 0.5 K/uL (0.1-1.3); Absolute Neutrophil 6.2 K/uL (1.8-8.0); Basophils % 0.6 % (0-1.3); Eosinophils % 1.9 % (0-4.4); Hematocrit 25.3 % (36.0-45.0); Lymphocytes % 6.7 % (15.3-44.8); Monocytes % 6.6 % (3.3-12.3)
[2019-01-25 06:30] LABS: Albumin 2.5 g/dL (3.4-5.0); Bilirubin Total 0.6 mg/dL (0.2-1.0); Potassium 3.8 mmol/L (3.5-5.1); Protein, Total 6.4 g/dL (6.4-8.2)
--- NOTE | 2019-01-25 08:29 | TREADPHA ---
DX: CHEST PAIN Date of Study: 01/24/2019 Ht: 5 1 Wt: 150 lb 4.8 oz Consulting Physician: SATNAM MEDICATIONS: LIPITOR, TRAANDATE, ALDACTONE HISTORY: 73 YEAR OLD FEMALE WITH COMPLAINTS OF CHEST PAIN. MEDICAL HISTORY OF DIABETES MELLITUS, HYPERTENSION AND CORONARY ARTERY DISEASE. PHYSICIAL EXAMINATION: RESTING B.P.: 156/67 RESTING H.R.: 77 RESTING EKG: SINUS, PREMATURE VENTRICULAR COMPLEXES, NORMAL ST PROTOCOL: LEXISCAN EXERCISE TIME: 3:30 B.P. AT PEAK STRESS: 146/60 IMPRESSION: LEXISCAN INJECTED. CARDIOLITE INJECTED PER PROTOCOL. SEE NUCLEAR MEDICINE REPORT. NO SUPRAVENTRICULAR TACHYCARDIA. NO VENTRICULAR TACHYCARDIA. NON DIAGNOSTIC EKG WITH LEXISCAN.
--- NOTE | 2019-01-25 08:45 | RAD REPORT ---
EXAM DESCRIPTION: Marie Whelan (2 Views)01/25/2019 7:36 am CLINICAL HISTORY: Chest pain COMPARISON: January 24 FINDINGS: No change in the bilateral pulmonary opacities. . The heart is mildly enlarged. Postsurgical changes involve the chest. Small pleural effusions IMPRESSION: No change CHF
[2019-01-25] MEDS ORDERED: POTASSIUM 25 MEQ EFFERV TAB PO ONE (09:00)
[2019-01-25] MEDS: LABETALOL HCL 100 MG TAB PO SCH (09:13)
[2019-01-25] MEDS: FUROSEMIDE 40 MG/4 ML VIAL IV SCH ×2 (09:13→17:06)
[2019-01-25] MEDS: SPIRONOLACTONE 25 MG TABLET PO SCH (09:14)
[2019-01-25 09:28] VITALS: O2SAT 97
--- NOTE | 2019-01-25 12:23 | P.CNS ---
Date of Consult: 01/25/19 Chief Complaint: Lower extremity swelling, shortness of breath History of Present Illness: Patient is very pleasant 73-year-old lady has been complaining of progressive dyspnea or extremity edema since her cholecystectomy on January 12. History of coronary artery disease status post CABG has diabetes and hypertension came in with a diagnosis of congestive heart failure is doing much better patient has never smoked no prior history of pulmonary complaints she was planning to see a pharmacy scheduler in [place] doing much better echocardiogram shows severe pulmonary hypertension Allergies No Known Allergies Allergy (Verified 05/15/17 13:44) Home Medications: Atorvastatin Calcium [Lipitor] 40 mg PO BEDTIME 01/09/19 Furosemide 20 mg PO DAILY 01/09/19 Labetalol HCl [Trandate*] 300 mg PO BID 01/09/19 Spironolactone 25 mg PO DAILY 01/09/19 glipiZIDE [Glucotrol*] 5 mg PO DAILY 01/09/19 Metformin ER [Glucophage ER] 1,000 mg PO DAILY 01/23/19 Nifedipine [Adalat cc] 120 mg PO DAILY 01/23/19 - Past Medical/Surgical History Diabetic: Yes -: Type 2 diabetes -: HTN -: Hyperlipidemia -: CHF -: Coronary artery disease -: CABG Triple May 2018 -: R eye cataract removal - Social History Alcohol use: No CD- Drugs: No Caffeine use: No Place of Residence: Home Review of Systems 10-point ROS is otherwise unremarkable Physical Examination Temp Pulse Resp BP Pulse Ox 98.4 F 68 16 170/74 H 97 01/25/19 08:00 01/25/19 09:14 01/25/19 08:00 01/25/19 09:14 01/25/19 08:00 General: Alert, Oriented x3 Neck: Supple Respiratory: Clear to auscultation bilaterally Cardiovascular: No edema, Normal S1 S2 Gastrointestinal: Normal bowel sounds, Soft and benign Musculoskeletal: No clubbing, No swelling - Problems (1) Congestive heart disease Current Visit: Yes Status: Acute Plan: Patient is 73 years of age with a history of coronary artery disease status post CABG admitted with worsening dyspnea and lower extremity edema since her cholecystectomy on January 12 2 in [facility] chest x-ray shows some interstitial changes BNP was very elevated diagnosis consistent with congestive heart failure I strongly suspect that she has diastolic dysfunction labs reviewed patient is mildly anemic normal kidney function blood pressure elevated will need more Lasix and spironolactone at discharge severe pulmonary hypertension on echocardiogram with normal right ventricular function I suspect is secondary to diastolic dysfunction he to follow up with the pharmacy scheduler in about 2 weeks no treatment indicated for her pulmonary hypertension patient does not qualify for home O2 Qualifiers: Heart failure type: diastolic Heart failure chronicity: acute on chronic Qualified Code(s): I50.33 - Acute on chronic diastolic (congestive) heart failure
[2019-01-25] MEDS ORDERED: POTASSIUM CL SA 10 MEQ TAB PO ONE (15:35)
[2019-01-25 16:14] VITALS: TEMP 98.6
[2019-01-25 17:52] VITALS: BP 168/80
== END 2019-01-25 18:05 | disposition home or self-care (01) | DRG 293 ==
LOC: ER 11:05 → ERHOLD 13:57 → 4TH 15:45
PROVIDERS: ADMIT Family Medicine; ATTEND Family Medicine
DX: I11.0 Hypertensive heart disease with heart failure (principal); I50.33 Acute on chronic diastolic (congestive) heart failure; I25.10 Atherosclerotic heart disease of native coronary artery without angina pectoris; Z95.1 Presence of aortocoronary bypass graft; D64.9 Anemia, unspecified; E11.9 Type 2 diabetes mellitus without complications; Z79.84 Long term (current) use of oral hypoglycemic drugs; E78.5 Hyperlipidemia, unspecified; R79.89 Other specified abnormal findings of blood chemistry
CPT/HCPCS: 36415; 71045; 71046; 78452; 80048; 80053; 80076; 81003; 83735; 83880; 84100; 84484; 85025; 85610; 87086; 87088; 93005; 93017; 93306; 93970; 94760; 96372; 96374; 99285; A9500; J1650; J1940; J2785; J3475

== ENCOUNTER 2020-05-18 14:24 | Emergency (ER) | payer OTHER ==
[2020-05-18 15:52] LABS: Absolute Lymphocytes (CBC) 0.9 K/uL (0.7-4.9); Basophils % 0.6 % (0-1.3); Hematocrit 41.1 % (36.0-45.0); Lymphocytes % 14.2 % (15.3-44.8); MPV 11.1 fL (7.6-11.3)
[2020-05-18 16:01] LABS: Potassium 3.2 mmol/L (3.5-5.1)
--- NOTE | 2020-05-18 17:05 | RAD REPORT ---
EXAM DESCRIPTION: CT - Spine Lumbar Wo Con - 05/18/2020 4:28 pm CLINICAL HISTORY: PAIN COMPARISON: None. TECHNIQUE: Thin section axial imaging of the lumbar spine was performed. Sagittal and coronal recon struction images were generated and reviewed. All CT scans are performed using dose optimization technique as appropriate and may include automated exposure control or mA/KV adjustment according to patient size. FINDINGS: Lumbar bodies are normal in height. Prominent Schmorl's nodes are present inferior endplat e L2 and superior endplate L3 and L4. There is 7 mm anterior subluxation of L4 on L5. AP alignment is otherwise normal. There is a minimal left convex scoliotic curvature. L2-3, L3-4 and L4-5 disc space narrowing present. Degenerative disc is present and L4-5. No paraspinal soft tissue mass. No compression fracture. No lytic, sclerotic or expansile bony destructive process. T12-L1: No significant finding. L1-2: No significant finding. L2-3: Minimal disc bulge associated with the loss in disc height. No herniation. No central spinal st enosis or significant foraminal encroachment. Facet degenerative change present along with calcificat ion of the posterior ligaments. L3-4: Circumferential bulging of disc material is present. Severe facet joint degenerative changes ar e present. Ligamentous thickening and calcification present posteriorly. Bilateral foraminal encroach ment changes are present. Central canal stenosis to 9 mm noted. No pars defect identified. L4-5 level: Pseudo bulging of disc material created by the subluxation. Severe facet joint degenerati ve change present. Ligamentous thickening present. There is central spinal stenosis to 5 mm. There is probably additional herniation of disc material in the right exit foramen with right foraminal steno sis. No significant left foraminal stenosis. L5-S1 level: No herniation or significant disc bulge. No canal or foramen stenosis. This level is par tially sacralized. IMPRESSION: No compression fracture. No lytic, sclerotic or expansile destructive process. Approximately 7 mm anterior subluxation of L4 on L5 due to severe facet joint degenerative change. Th is results in significant central spinal stenosis to 5 mm at the level of the superior endplate L5. L4-5 also shows evidence for right foraminal disc herniation causing significant stenosis. L3-4 degenerative changes as detailed. Canal is borderline to mildly stenotic at 9 mm.
--- NOTE | 2020-05-18 17:15 | RAD REPORT ---
EXAM DESCRIPTION: CT - Pelvis W/Cont - 05/18/2020 4:28 pm CLINICAL HISTORY: left buttock pain COMPARISON: Spine Lumbar Wo Con dated 05/18/2020 TECHNIQUE: Axial 5 millimeter thick images of the pelvis were obtained following nonionic IV contras t administration. Sagittal and coronal reformatted images were generated and reviewed. Lumbar spine a xial images were reconstructed to include the anterior abdominal wall and correlated with the study. The CT scan was performed using dose optimization techniques as appropriate to a performed exam incl uding one or more of the following: Automated exposure control, adjustment of the mA and/or kV accord ing to patient size (this includes techniques or standardized protocols for targeted exams where dose is matched to indication/reason for exam) and use of iterative reconstruction technique. FINDINGS: Advanced lumbar spine degenerative changes are present detailed on the separate lumbar spi ne report. SI joint degenerative changes are present. No sacral ala fracture identified. No fracture of the bony pelvis is identifiable. No proximal femur fracture identified. No AVN or focal femoral he ad abnormality. Patient has mild for age bilateral hip joint degenerative change. No periarticular ma ss, hematoma or joint effusion identifiable. No pathologic bone process identifiable. Imaged bowel loops show no acute finding. There is diverticulosis without diverticulitis. Air is present within the urinary bladder. This is presumed to be from catheterization. This needs co rrelation. Fat only right inguinal hernia is present. Dense arterial tree calcifications are present. Patient has a very large heterogeneous anterior abdominal wall mass. This is 11 cm CC x 16 cm TR by 6 .6 cm AP. The bulk of the mass is relatively low attenuation at 35-40 Hounsfield units. This mass is anterior to the abdominal wall musculature. Along the posterior and lateral peripheral margins of thi s mass there are numerous are can rain hyperdensities present. These were not seen on the reconstruct ed lumbar spine images which were performed precontrast. This would indicate active extravasation of blood. This is most likely a large abdominal wall hematoma. Superior margin of the hematoma is the um bilicus level. IMPRESSION: Large 16 x 11 x 6.6 centimeter anterior abdominal wall hematoma. Areas of active extrava sation of contrast into the lumen of this large hematoma identified along the periphery. No retroperitoneal or intraperitoneal acute finding seen. Air within the urinary bladder is believed to be from catheterization procedure rather than gas-forming infectious process. This needs clinical correlation. Patient has severe lumbar spine degenerative changes as a probable source for pelvic, hip and leg shital n. Those findings are separately detailed.
--- OUTSIDE RECORDS SUMMARY | 2020-05-18 17:33 | XMS REPORT | Clinical Summary ---
:1945 Author Organization [facility] Address [address] [place] [address] Care Team Providers Name Role Phone Saima Nguyen MD Primary Care Provider Allergies No Known Allergies Medications Medication Sig Dispensed Refills Start Date End Date Status atorvastatin (LIPITOR) 40 Take 40 mg by 0 Active MG tablet mouth nightly. furosemide (LASIX) 20 mg Take 20 mg by 0 Active tablet mouth daily. spironolactone Take 25 mg by 0 A ctive (ALDACTONE) 25 MG tablet mouth daily. glipiZIDE (GLUCOTROL) 5 Take 5 mg by 0 Active MG tablet mouth daily. Active Problems Problem Noted Date Choledocholithiasis 01/10/2019 Social History Tobacco Use Types Packs/Day Years [...] six or more drinks on one occasion? No t asked Sex Assigned at Date Recorded Not on file Job Start Date Occupation Industry Not on file Not on file Not on file Travel History Travel Start Travel End No recent travel history available. Last Filed Vital Signs Not on file Plan of Treatment Health Maintenance Due Date Last Done Comments BREAST CANCER SCREENING 1995 COLONOSCOPY SCREENING 1995 SHINGLES VACCINES (#1) 1995 65+ PNEUMOCOCCAL VACCINE (1 of 2 - PCV13) 2010 INFLUENZA VACCINE 05/30/2020 Results Not on fileafter 05/18/2019 Advance Directives For more information, please contact: [phone] Type Date Recorded Patient Mica Plate Layer Hand Explanati on Advance Directives, Living Will 01/11/2019 8:30 AM and Medical Power of Supervisor Print Line
--- OUTSIDE RECORDS SUMMARY | 2020-05-18 17:33 | XMS REPORT | Clinical Summary ---
:1945 Author Organization [facility] Address [address] [place] [address] Care Team Providers Name Role Phone Rupert Primary Care Provider Allergies No Known Allergies Medications Medication Sig Dispensed Refills Start Date End Date Status atorvastatin (LIPITOR) Take 40 mg by 0 Active 40 MG tablet mouth daily. glipiZIDE (GLUCOTROL) 10 Take 10 mg by 0 Active MG tablet mouth daily. Active Problems Problem Noted Date Coronary artery arteriosclerosis 05/22/2017 Acute pulmonary insufficiency following thoracic surge ry 05/22/2017 Acute blood loss anemia 05/22/2017 Social [...] Health Maintenance Due Date Last Done Comments COLON CANCER SCREENING COLONOSCOPY 1945 PNEUMOCOCCAL 65+ LOW/MEDIUM RISK (1 of 2 - PCV13) 2010 MEDICARE ANNUAL WELLNESS (YEAR 2 or FIRST YEAR if no 10/31/2017 IPPE) INFLUENZA VACCINE (#1) 2020 Results Not on fileafter 05/18/2019 Insurance Payer Benefit Plan / Subscriber ID Type Phone Address Group [employer] - MEDICARE [employer] MEDICARE O xxxxxxxx [id number] [employer] C[employer] POS PPO [place] [id number] Advance Directives For more information, please contact:[address] [place], [place] [phone] Code Status Date Activated Date Inactivated Comments Full Code 05/22/2017 11:38 AM 05/31/2017 5:35 PM This code status was determined by: Patient
--- OUTSIDE RECORDS SUMMARY | 2020-05-18 17:35 | XMS REPORT | Continuity of Care Document ---
:1945 Author Organization [facility] t Address [address] [place] [address] Care Team Providers Name Role Phone Haley Nguyen MD Primary Care Physician ALONSO SIMON Attending Clinician Unavailable ALONSO SIMON Admitting Clinician Unavailable Problems Condition Condition Condition Status Onset Resolution Last Treating Co mments Source Name Details Category Date Date Treatment Clinician Date [place]o Disease Active [place] lithiasis lithiasis 3-14 Meth theo 00:00: st 00 Coronary Coronary Disease Active [facility] S t artery artery 724 [facility] - arterioscl arterioscl 00:00: [place] dical erosis erosis 00 Center Acute Acute Disease Active [facility] pulmonary pulmonary 7-24 [facility] - insufficie insufficie 00:00: [place] dical ncy ncy 00 Center following following thoracic thoracic surgery surgery Acute Acute Disease Active [facility] blood loss blood loss 7-24 [facility] - anemia anemia 00:00: Medical 00 [place] Allergies, Adverse Reactions, Alerts This patient has no known allergies or adverse reactions. Social History Social Habit Start Date Stop Date Quantity Comments Source History [facility] Meth odist Alcohol Std Drinks History [facility] Alcohol Binge Sex Assigned At [facility] Alcohol intake 2019-01-14 2019-01-[address] [facility] thodist 00:00:00 00:00:00 non-drinker of alcohol (finding) History [facility] 2019-01-10 2019-01-10 1 [place] Meth odist Alcohol Frequency 00:00:00 00:00:00 Smoking Status Start Date Stop Date Source Never smoker [facility] Medications Ordered Filled Start Stop Current Ordering Indication Dosage Frequency Signature Comments Components Source Medication Medication Date Date Medication? Clinician (SIG) Name Name atorvastati Yes 40mg QD Take 40 mg Das n (LIPITOR) 3-19 by mouth Meth theo 40 MG 12:10: nightly. st tablet 20 furosemide Yes 20mg QD Take 20 mg [place] (LASIX) 20 3-19 by mouth Metho di mg tablet 12:10: daily. st 20 spironolact Yes 25mg QD Take 25 mg Das one 3-19 by mouth Methodi (ALDACTONE) 12:10: daily. st 25 MG 20 tablet glipiZIDE Yes 5mg Take 5 mg [place] [facility] (GLUCOTROL) 3-19 by mouth Meth theo 5 MG tablet 12:10: daily. st 20 atorvastati Yes 40mg QD Take [address] [facility] (LIPITOR) 7-20 by mouth [facility] - 40 MG 07:01: daily. Medical tablet 20 Center glipiZIDE Yes 10mg QD Take [address] (GLUCOTROL) 7-20 by mouth [facility] - 10 MG 07:01: daily. Medical tablet 20 Center Procedures This patient has no known procedures. Plan of Care Planned Activity Planned Date Details Comments Source Future Scheduled 2020-06-30 INFLUENZA VACCINE (#1) [facility] 00:[facility]:00 [code = INFLUENZA Medical Ce nter VACCINE (#1)] Future Scheduled 2020-05-30 INFLUENZA VACCINE [place] [facility] 00:00:00 [code = INFLUENZA VACCINE] Future Scheduled 2017-10-[address] [facility] [address] [facility] - Test 00:00:00 WELLNESS (YEAR 2 or Medical Center FIRST YEAR if no IPPE) [code = MEDICARE ANNUAL WELLNESS (YEAR 2 or FIRST YEAR if no IPPE)] Future Scheduled 2010 65+ PNEUMOCOCCAL [facility] Test 00:00:00 VACCINE (1 of 2 - PCV13) [code = 65+ PNEUMOCOCCAL VACCINE (1 of 2 - PCV13)] Future Scheduled 2010 PNEUMOCOCCAL [address]+ [facility] - Test 00:00:00 LOW/MEDIUM RISK (1 of Medica l Center 2 - PCV13) [code = PNEUMOCOCCAL 65+ LOW/MEDIUM RISK (1 of 2 - PCV13)] Future Scheduled [address] [facility] thodist Test 00:00:00 SCREENING [code = BREAST CANCER SCREENING] Future Scheduled 1995 COLONOSCOPY SCREENING [facility] Test 00:00:00 [code = COLONOSCOPY SCREENING] Future Scheduled 1995 SHINGLES VACCINES (#1) [facility] Test 00:00:00 [code = SHINGLES VACCINES (#1)] Future Scheduled [address] [facility] - Test 00:00:00 malignant neoplasm of Medica l Center colon (procedure) [code = 447140030] Results Test Description Test Time Test Comments Results Result Comments Source POCT-GLUCOSE METER 2017-05-31 07:43:00 Test Item Value Reference Range Interpretation Comme nts POC-GLUCOSE METER (BEAKER) (test 174 mg/dL 70-110 H TESTED AT [facility] [address] code = 1538) [facility] 7703 0 BASIC METABOLIC [id number] 07:28:00 Test Item Value Reference Range Interpretation Comments SODIUM (BEAKER) 140 meq/L 136-145 (test code = 381) POTASSIUM (BEAKER) 3.8 meq/L 3.5-5.1 (test code = 379) CHLORIDE (BEAKER) 99 meq/L 98-107 (test code = 382) CO2 (BEAKER) (test 30 meq/L 22-29 H code = 355) BLOOD UREA NITROGEN 36 mg/dL 7-21 H (BEAKER) (test code = 354) CREATININE (BEAKER) 1.10 mg/dL 0.57-1.25 (test code = 358) GLUCOSE RANDOM 158 mg/dL 70-105 H (BEAKER) (test code = 652) CALCIUM (BEAKER) 9.4 mg/dL 8.4-10.2 (test code = 697) EGFR (BEAKER) (test mL/min/1.73 INSUFFIC IENT CLINICAL code = 1092) sq m DATA TO CALCULA TE ESTIMATED GFR. [id number] 07:16:00 Test Item Value Reference Range Interpretation Comments PHOSPHORUS (BEAKER) (test code = 3.7 mg/dL 2.3-4.7 604) [id number] 07:16:00 Test Item Value Reference Range Interpretation Comments MAGNESIUM (BEAKER) (test code = 1.9 mg/dL 1.6-2.6 627) POCT-GLUCOSE [id number] 20:52:00 Test Item Value Reference Range Interpretation Comments POC-GLUCOSE METER 256 mg/dL 70-110 H TESTED AT [place] [address] (BEAKER) (test code = BANNERCHAS[facility] Curiel [facility] 1538) [address] POCT-GLUCOSE [id number] 19:07:00 Test Item Value Reference Range Interpretation Comments POC-GLUCOSE METER 210 mg/dL 70-110 H TESTED AT [place] [address] (BEAKER) (test code = [facility] 1538) [address] POCT-GLUCOSE [id number] 14:29:00 Test Item Value Reference Range Interpretation Comments POC-GLUCOSE METER 179 mg/dL 70-110 H TESTED AT [place] [address] (BEAKER) (test code = [facility] 1538) [address] POCT-GLUCOSE [id number] 09:09:00 Test Item Value Reference Range Interpretation Comments POC-GLUCOSE METER 186 mg/dL 70-110 H TESTED AT [place] [address] (BEAKER) (test code = [facility] 1538) [address] BASIC METABOLIC [id number] 07:41:00 Test Item Value Reference Range Interpretation Comments SODIUM (BEAKER) 138 meq/L 136-145 (test code = 381) POTASSIUM (BEAKER) 3.8 meq/L 3.5-5.1 (test code = 379) CHLORIDE (BEAKER) 102 meq/L 98-107 (test code = 382) CO2 (BEAKER) (test 27 meq/L 22-29 code = 355) BLOOD UREA NITROGEN 40 mg/dL 7-21 H (BEAKER) (test code = 354) CREATININE (BEAKER) 1.07 mg/dL 0.57-1.25 (test code = 358) GLUCOSE RANDOM 164 mg/dL 70-105 H (BEAKER) (test code = 652) CALCIUM (BEAKER) 8.8 mg/dL 8.4-10.2 (test code = 697) EGFR (BEAKER) (test mL/min/1.73 INSUFFIC IENT CLINICAL code = 1092) sq m DATA TO CALCULA TE ESTIMATED GFR. [id number] 07:38:00 Test Item Value Reference Range Interpretation Comments PHOSPHORUS ([facility]) (test code = 3.4 mg/dL 2.3-4.7 604) [id number] 07:38:00 Test Item Value Reference Range Interpretation Comments MAGNESIUM ([facility]) (test code = 1.5 mg/dL 1.6-2.6 L 627) POCT-GLUCOSE [id number] 22:12:00 Test Item Value Reference Range Interpretation Comments POC-GLUCOSE METER 216 mg/dL 70-110 H TESTED AT [place] [address] ([facility]) (test code = [facility]UEL Curiel [facility] 1538) [address] POCT-GLUCOSE [id number] 14:18:00 Test Item Value Reference Range Interpretation Comments POC-GLUCOSE METER 72 mg/dL 70-110 TESTED AT [place] [address] ([facility]) (test code = [facility] Curiel [facility] [address] 1538) POCT-GLUCOSE [id number] 14:18:00 Test Item Value Reference Range Interpretation Comments POC-GLUCOSE METER 59 mg/dL 70-110 L Marco Avila MD/TESTED AT ([facility]) (test code = [address] 1538) [facility] 7703 0 POCT-GLUCOSE [id number] 11:16:00 Test Item Value Reference Range Interpretation Comments POC-GLUCOSE METER 126 mg/dL 70-110 H TESTED AT [place] [address] ([facility]) (test code = [facility] Curiel [facility] 1538) [address] POCT-GLUCOSE [id number] 08:49:00 Test Item Value Reference Range Interpretation Comments POC-GLUCOSE METER 156 mg/dL 70-110 H TESTED AT [place] [address] ([facility]) (test code = [facility] MANUEL Curiel [facility] 1538) [address] CBC W/PLT COUNT & AUTO [id number] 07:43:00 Test Item Value Reference Range Interpretation Comments WHITE BLOOD CELL COUNT ([facility]) 7.9 K/ L 3.5-10.5 (test code = 775) RED BLOOD CELL COUNT ([facility]) 2.95 M/ L 3.93-5.22 L (test code = 761) HEMOGLOBIN ([facility]) (test code = 8.8 GM/DL 11.2-15.7 L 410) HEMATOCRIT (BEAKER) (test code = 27.2 % 34.1-44.9 L 411) MEAN CORPUSCULAR VOLUME (BEAKER) 92.2 fL 79.4-94.8 (test code = 753) MEAN CORPUSCULAR HEMOGLOBIN 29.8 pg 25.6-32.2 (BEAKER) (test code = 751) MEAN CORPUSCULAR HEMOGLOBIN CONC 32.4 GM/DL 32.2-35.5 (BEAKER) (test code = 752) RED CELL DISTRIBUTION WIDTH 15.6 % 11.7-14.4 H (BEAKER) (test code = 412) PLATELET COUNT (BEAKER) (test 162 K/CU MM 150-450 code = 756) MEAN PLATELET VOLUME (BEAKER) 12.0 fL 9.4-12.3 (test code = 754) NUCLEATED RED BLOOD CELLS 0 /100 WBC 0-0 (BEAKER) (test code = 413) NEUTROPHILS RELATIVE PERCENT 76 % (BEAKER) (test code = 429) LYMPHOCYTES RELATIVE PERCENT 8 % (BEAKER) (test code = 430) MONOCYTES RELATIVE PERCENT 9 % (BEAKER) (test code = 431) EOSINOPHILS RELATIVE PERCENT 6 % (BEAKER) (test code = 432) BASOPHILS RELATIVE PERCENT 0 % (BEAKER) (test code = 437) NEUTROPHILS ABSOLUTE COUNT 6.00 K/ L 1.56-6.13 (BEAKER) (test code = 670) LYMPHOCYTES ABSOLUTE COUNT 0.66 K/ L 1.18-3.74 L (BEAKER) (test code = 414) MONOCYTES ABSOLUTE COUNT (BEAKER) 0.71 K/ L 0.24-0.36 H (test code = 415) EOSINOPHILS ABSOLUTE COUNT 0.44 K/ L 0.04-0.36 H (BEAKER) (test code = 416) BASOPHILS ABSOLUTE COUNT (BEAKER) 0.01 K/ L 0.01-0.08 (test code = 417) IMMATURE GRANULOCYTES-RELATIVE 1 % 0-1 PERCENT (BEAKER) (test code = 2801) BASIC METABOLIC [id number] 07:15:00 Test Item Value Reference Range Interpretation Comments SODIUM (BEAKER) 139 meq/L 136-145 (test code = 381) POTASSIUM (BEAKER) 3.9 meq/L 3.5-5.1 (test code = 379) CHLORIDE (BEAKER) 104 meq/L 98-107 (test code = 382) CO2 (BEAKER) (test 26 meq/L 22-29 code = 355) BLOOD UREA NITROGEN 37 mg/dL 7-21 H (BEAKER) (test code = 354) CREATININE (BEAKER) 1.02 mg/dL 0.57-1.25 (test code = 358) GLUCOSE RANDOM 133 mg/dL 70-105 H (AKER) (test code = 652) CALCIUM (BEAKER) 9.1 mg/dL 8.4-10.2 (test code = 697) EGFR (BEAKER) (test mL/min/1.73 INSUFFIC IENT CLINICAL code = 1092) sq m DATA TO CALCULA TE ESTIMATED GFR. [id number] 07:13:00 Test Item Value Reference Range Interpretation Comments PHOSPHORUS (BEAKER) (test code = 3.2 mg/dL 2.3-4.7 604) [id number] 07:13:00 Test Item Value Reference Range Interpretation Comments MAGNESIUM (BEAKER) (test code = 1.7 mg/dL 1.6-2.6 627) POCT-GLUCOSE [id number] 21:19:00 Test Item Value Reference Range Interpretation Comments POC-GLUCOSE METER 228 mg/dL 70-110 H TESTED AT [place] [address] ([facility]) (test code = [facility] [place] 1538) [address] POCT-GLUCOSE [id number] 17:02:00 Test Item Value Reference Range Interpretation Comments POC-GLUCOSE METER 165 mg/dL 70-110 H TESTED AT [place] [address] ([facility]) (test code = [facility] Curiel [facility] 1538) [address] POCT-GLUCOSE [id number] 11:55:00 Test Item Value Reference Range Interpretation Comments POC-GLUCOSE METER 170 mg/dL 70-110 H TESTED AT [place] [address] ([facility]) (test code = [facility] Curiel [facility] 1538) [address] CBC W/PLT COUNT & AUTO [id number] 10:41:00 Test Item Value Reference Range Interpretation Comments WHITE BLOOD CELL COUNT ([facility]) 6.7 K/ L 3.5-10.5 (test code = 775) RED BLOOD CELL COUNT (AKER) 2.92 M/ L 3.93-5.22 L (test code = 761) HEMOGLOBIN (BEAKER) (test code = 8.4 GM/DL 11.2-15.7 L 410) HEMATOCRIT (BEAKER) (test code = 27.3 % 34.1-44.9 L 411) MEAN CORPUSCULAR VOLUME (BEAKER) 93.5 fL 79.4-94.8 (test code = 753) MEAN CORPUSCULAR HEMOGLOBIN 28.8 pg 25.6-32.2 (BEAKER) (test code = 751) MEAN CORPUSCULAR HEMOGLOBIN CONC 30.8 GM/DL 32.2-35.5 L (BEAKER) (test code = 752) RED CELL DISTRIBUTION WIDTH 15.8 % 11.7-14.4 H (BEAKER) (test code = 412) PLATELET COUNT (BEAKER) (test 127 K/CU MM 150-450 L code = 756) MEAN PLATELET VOLUME (BEAKER) 12.8 fL 9.4-12.3 H (test code = 754) NUCLEATED RED BLOOD CELLS 0 /100 WBC 0-0 (BEAKER) (test code = 413) NEUTROPHILS RELATIVE PERCENT 74 % (BEAKER) (test code = 429) LYMPHOCYTES RELATIVE PERCENT 10 % (BEAKER) (test code = 430) MONOCYTES RELATIVE PERCENT 10 % (BEAKER) (test code = 431) EOSINOPHILS RELATIVE PERCENT 6 % (BEAKER) (test code = 432) BASOPHILS RELATIVE PERCENT 0 % (BEAKER) (test code = 437) NEUTROPHILS ABSOLUTE COUNT 4.95 K/ L 1.56-6.13 (BEAKER) (test code = 670) LYMPHOCYTES ABSOLUTE COUNT 0.64 K/ L 1.18-3.74 L (BEAKER) (test code = 414) MONOCYTES ABSOLUTE COUNT (BEAKER) 0.66 K/ L 0.24-0.36 H (test code = 415) EOSINOPHILS ABSOLUTE COUNT 0.37 K/ L 0.04-0.36 H (BEAKER) (test code = 416) BASOPHILS ABSOLUTE COUNT (BEAKER) 0.01 K/ L 0.01-0.08 (test code = 417) IMMATURE GRANULOCYTES-RELATIVE 1 % 0-1 PERCENT (BEAKER) (test code = 2801) BASIC METABOLIC [id number] 07:41:00 Test Item Value Reference Range Interpretation Comments SODIUM (BEAKER) 138 meq/L 136-145 (test code = 381) POTASSIUM (BEAKER) 4.0 meq/L 3.5-5.1 (test code = 379) CHLORIDE (BEAKER) 107 meq/L 98-107 (test code = 382) CO2 (BEAKER) (test 25 meq/L 22-29 code = 355) BLOOD UREA NITROGEN 40 mg/dL 7-21 H (BEAKER) (test code = 354) CREATININE (BEAKER) 1.00 mg/dL 0.57-1.25 (test code = 358) GLUCOSE RANDOM 115 mg/dL 70-105 H (BEAKER) (test code = 652) CALCIUM (BEAKER) 9.0 mg/dL 8.4-10.2 (test code = 697) EGFR (BEAKER) (test mL/min/1.73 INSUFFIC IENT CLINICAL code = 1092) sq m DATA TO CALCULA TE ESTIMATED GFR. POCT-GLUCOSE [id number] 07:24:00 Test Item Value Reference Range Interpretation Comments POC-GLUCOSE METER 134 mg/dL 70-110 H TESTED AT [place] [address] ([facility]) (test code = [facility] 1538) [address] [id number] 07:24:00 Test Item Value Reference Range Interpretation Comments PHOSPHORUS (BEAKER) (test code = 2.9 mg/dL 2.3-4.7 604) [id number] 07:24:00 Test Item Value Reference Range Interpretation Comments MAGNESIUM (BEAKER) (test code = 2.0 mg/dL 1.6-2.6 627) POCT-GLUCOSE [id number] 20:53:00 Test Item Value Reference Range Interpretation Comments POC-GLUCOSE METER 133 mg/dL 70-110 H TESTED AT [place] [address] ([facility]) (test code = [facility] 1538) [address] POCT-GLUCOSE [id number] 17:10:00 Test Item Value Reference Range Interpretation Comments POC-GLUCOSE METER 85 mg/dL 70-110 TESTED AT [place] [id number] ([facility]) (test code = [facility] [address] 1538) POCT-GLUCOSE [id number] 17:10:00 Test Item Value Reference Range Interpretation Comments POC-GLUCOSE METER 58 mg/dL 70-110 L Notified R Margarita QUINONES/TESTED AT ([facility]) (test code = [place] [address] MAXIMO 1538) [facility] 7703 0 POCT-GLUCOSE [id number] 11:37:00 Test Item Value Reference Range Interpretation Comments POC-GLUCOSE METER 222 mg/dL 70-110 H TESTED AT [place] [address] ([facility]) (test code = [facility] Curiel [facility] 1538) [address] POCT-GLUCOSE [id number] 07:16:00 Test Item Value Reference Range Interpretation Comments POC-GLUCOSE METER 133 mg/dL 70-110 H TESTED AT [place] [address] ([facility]) (test code = [facility] Curiel [facility] 1538) [address] [id number] 06:58:00 Test Item Value Reference Range Interpretation Comments MAGNESIUM ([facility]) 2.5 mg/dL 1.6-2.6 Specimen slightly (test code = 627) hemolyzed [id number] 06:58:00 Test Item Value Reference Range Interpretation Comments PHOSPHORUS ([facility]) 2.8 mg/dL 2.3-4.7 Specimen slightly (test code = 604) hemolyzed POCT-GLUCOSE [id number] 21:07:00 Test Item Value Reference Range Interpretation Comments POC-GLUCOSE METER 196 mg/dL 70-110 H TESTED AT [place] [address] ([facility]) (test code = [facility] Curiel [facility] 1538) [address] POCT-GLUCOSE [id number] 17:25:00 Test Item Value Reference Range Interpretation Comments POC-GLUCOSE METER 78 mg/dL 70-110 TESTED AT [place] [address] ([facility]) (test code = [facility] Curiel [facility] [address] 1538) POCT-GLUCOSE [id number] 17:13:00 Test Item Value Reference Range Interpretation Comments POC-GLUCOSE METER 53 mg/dL 70-110 L Notified Moisés Avila MD/TESTED AT ([facility]) (test code = [place] [address] [address] 1538) [facility] 7703 0 POCT-GLUCOSE [id number] 12:13:00 Test Item Value Reference Range Interpretation Comments POC-GLUCOSE METER 73 mg/dL 70-110 TESTED AT [place] [address] ([facility]) (test code = [facility] Curiel [facility] [address] 1538) POCT-GLUCOSE [id number] 07:42:00 Test Item Value Reference Range Interpretation Comments POC-GLUCOSE METER 78 mg/dL 70-110 TESTED AT [facility] 6720 (BEAKER) (test code = [place] [address] 1538) BASIC METABOLIC [id number] 07:04:00 Test Item Value Reference Range Interpretation Comments SODIUM (BEAKER) 136 meq/L 136-145 (test code = 381) POTASSIUM (BEAKER) 3.9 meq/L 3.5-5.1 (test code = 379) CHLORIDE (BEAKER) 105 meq/L 98-107 (test code = 382) CO2 (BEAKER) (test 25 meq/L 22-29 code = 355) BLOOD UREA NITROGEN 50 mg/dL 7-21 H (BEAKER) (test code = 354) CREATININE (BEAKER) 1.11 mg/dL 0.57-1.25 (test code = 358) GLUCOSE RANDOM 79 mg/dL 70-105 (BEAKER) (test code = 652) CALCIUM (BEAKER) 8.9 mg/dL 8.4-10.2 (test code = 697) EGFR (BEAKER) (test mL/min/1.73 INSUFFIC IENT CLINICAL code = 1092) sq m DATA TO CALCULA TE ESTIMATED GFR. [id number] 07:03:00 Test Item Value Reference Range Interpretation Comments PHOSPHORUS (BEAKER) (test code = 2.8 mg/dL 2.3-4.7 604) [id number] 07:03:00 Test Item Value Reference Range Interpretation Comments MAGNESIUM (BEAKER) (test code = 2.2 mg/dL 1.6-2.6 627) CBC (HEMOGRAM ONLY)[id number] 06:52:00 Test Item Value Reference Range Interpretation Comments WHITE BLOOD CELL COUNT (BEAKER) 6.3 K/ L 3.5-10.5 (test code = 775) RED BLOOD CELL COUNT (BEAKER) 2.82 M/ L 3.93-5.22 L (test code = 761) HEMOGLOBIN (BEAKER) (test code = 8.3 GM/DL 11.2-15.7 L 410) HEMATOCRIT (BEAKER) (test code = 25.8 % 34.1-44.9 L 411) MEAN CORPUSCULAR VOLUME (BEAKER) 91.5 fL 79.4-94.8 (test code = 753) MEAN CORPUSCULAR HEMOGLOBIN 29.4 pg 25.6-32.2 (BEAKER) (test code = 751) MEAN CORPUSCULAR HEMOGLOBIN CONC 32.2 GM/DL 32.2-35.5 (BEAKER) (test code = 752) RED CELL DISTRIBUTION WIDTH 15.9 % 11.7-14.4 H (BEAKER) (test code = 412) PLATELET COUNT (BEAKER) (test code 82 K/CU MM 150-450 L = 756) MEAN PLATELET VOLUME (BEAKER) 12.9 fL 9.4-12.3 H (test code = 754) NUCLEATED RED BLOOD CELLS (AKER) 0 /100 WBC 0-0 (test code = 413) POCT-GLUCOSE [id number] 21:21:00 Test Item Value Reference Range Interpretation Comments POC-GLUCOSE METER 171 mg/dL 70-110 H TESTED AT [place] [address] ([facility]) (test code = [facility] Curiel [facility] 1538) [address] POCT-GLUCOSE [id number] 18:49:00 Test Item Value Reference Range Interpretation Comments POC-GLUCOSE METER 190 mg/dL 70-110 H TESTED AT [place] [address] ([facility]) (test code = [facility] Curiel [facility] 1538) [address] POCT-GLUCOSE [id number] 12:33:00 Test Item Value Reference Range Interpretation Comments POC-GLUCOSE METER 213 mg/dL 70-110 H TESTED AT [place] [address] ([facility]) (test code = [facility] Curiel [facility] 1538) [address] POCT-GLUCOSE [id number] 08:39:00 Test Item Value Reference Range Interpretation Comments POC-GLUCOSE METER 234 mg/dL 70-110 H TESTED AT [place] [address] ([facility]) (test code = [facility]UEL Curiel [facility] 1538) [address] BASIC METABOLIC [id number] 07:16:00 Test Item Value Reference Range Interpretation Comments SODIUM (BEAKER) 132 meq/L 136-145 L (test code = 381) POTASSIUM (BEAKER) 5.0 meq/L 3.5-5.1 Specimen moderately (test code = 379) hemolyzed CHLORIDE (BEAKER) 104 meq/L 98-107 (test code = 382) CO2 (BEAKER) (test 19 meq/L 22-29 L code = 355) BLOOD UREA NITROGEN 45 mg/dL 7-21 H (BEAKER) (test code = 354) CREATININE (BEAKER) 1.23 mg/dL 0.57-1.25 Specimen moderately (test code = 358) hemolyzed GLUCOSE RANDOM 211 mg/dL 70-105 H (BEAKER) (test code = 652) CALCIUM (BEAKER) 9.0 mg/dL 8.4-10.2 (test code = 697) EGFR (BEAKER) (test mL/min/1.73 INSUFFIC IENT CLINICAL code = 1092) sq m DATA TO CALCULA TE ESTIMATED GFR. [id number] 07:12:00 Test Item Value Reference Range Interpretation Comments MAGNESIUM (BEAKER) 2.6 mg/dL 1.6-2.6 Specimen moderately (test code = 627) hemolyzed [id number] 07:12:00 Test Item Value Reference Range Interpretation Comments PHOSPHORUS (BEAKER) 2.8 mg/dL 2.3-4.7 Specimen moderately (test code = 604) hemolyzed CBC (HEMOGRAM ONLY)2017-05-25 06:51:00 Test Item Value Reference Range Interpretation Comments WHITE BLOOD CELL COUNT (BEAKER) 10.1 K/ L 3.5-10.5 (test code = 775) RED BLOOD CELL COUNT (BEAKER) 3.09 M/ L 3.93-5.22 L (test code = 761) HEMOGLOBIN (BEAKER) (test code = 9.0 GM/DL 11.2-15.7 L 410) HEMATOCRIT (BEAKER) (test code = 28.3 % 34.1-44.9 L 411) MEAN CORPUSCULAR VOLUME (BEAKER) 91.6 fL 79.4-94.8 (test code = 753) MEAN CORPUSCULAR HEMOGLOBIN 29.1 pg 25.6-32.2 (BEAKER) (test code = 751) MEAN CORPUSCULAR HEMOGLOBIN CONC 31.8 GM/DL 32.2-35.5 L (BEAKER) (test code = 752) RED CELL DISTRIBUTION WIDTH 16.0 % 11.7-14.4 H (BEAKER) (test code = 412) PLATELET COUNT (BEAKER) (test code 71 K/CU MM 150-450 L = 756) MEAN PLATELET VOLUME (BEAKER) 13.4 fL 9.4-12.3 H (test code = 754) NUCLEATED RED BLOOD CELLS (BEAKER) 0 /100 WBC 0-0 (test code = 413) POCT-GLUCOSE [id number] 22:22:00 Test Item Value Reference Range Interpretation Comments POC-GLUCOSE METER 190 mg/dL 70-110 H TESTED AT [place] [address] ([facility]) (test code = VICTOR MANUEL Curiel [place] [address]) [address] POCT-GLUCOSE [id number] 18:10:00 Test Item Value Reference Range Interpretation Comments POC-GLUCOSE METER 338 mg/dL 70-110 H Notified Moisés Avila MD/TESTED ([facility]) (test code = AT [place] [address]) [facility] [address] POCT-GLUCOSE [id number] 14:03:00 Test Item Value Reference Range Interpretation Comments POC-GLUCOSE METER 260 mg/dL 70-110 H TESTED AT [place] [address] ([facility]) (test code = VICTOR MANUEL Curiel [place] [address]) [address] POCT-GLUCOSE [id number] 08:28:00 Test Item Value Reference Range Interpretation Comments POC-GLUCOSE METER 307 mg/dL 70-110 H Notified Moisés Avila MD/TESTED ([facility]) (test code = AT [place] [address]) [facility] [address] [id number] 07:02:00 Test Item Value Reference Range Interpretation Comments PHOSPHORUS (BEAKER) (test code = 3.3 mg/dL 2.3-4.7 604) [id number] 07:02:00 Test Item Value Reference Range Interpretation Comments MAGNESIUM (BEAKER) (test code = 2.0 mg/dL 1.6-2.6 627) BASIC METABOLIC [id number] 07:02:00 Test Item Value Reference Range Interpretation Comments SODIUM (BEAKER) 136 meq/L 136-145 (test code = 381) POTASSIUM (BEAKER) 4.2 meq/L 3.5-5.1 (test code = 379) CHLORIDE (BEAKER) 105 meq/L 98-107 (test code = 382) CO2 (BEAKER) (test 24 meq/L 22-29 code = 355) BLOOD UREA NITROGEN 32 mg/dL 7-21 H (BEAKER) (test code = 354) CREATININE (BEAKER) 1.21 mg/dL 0.57-1.25 (test code = 358) GLUCOSE RANDOM 286 mg/dL 70-105 H (BEAKER) (test code = 652) CALCIUM (BEAKER) 9.0 mg/dL 8.4-10.2 (test code = 697) EGFR (BEAKER) (test mL/min/1.73 INSUFFIC IENT CLINICAL code = 1092) sq m DATA TO CALCULA TE ESTIMATED GFR. CBC (HEMOGRAM ONLY)2017-05-24 06:48:00 Test Item Value Reference Range Interpretation Comments WHITE BLOOD CELL COUNT (BEAKER) 9.8 K/ L 3.5-10.5 (test code = 775) RED BLOOD CELL COUNT (BEAKER) 3.12 M/ L 3.93-5.22 L (test code = 761) HEMOGLOBIN (BEAKER) (test code = 9.3 GM/DL 11.2-15.7 L 410) HEMATOCRIT (BEAKER) (test code = 28.4 % 34.1-44.9 L 411) MEAN CORPUSCULAR VOLUME (BEAKER) 91.0 fL 79.4-94.8 (test code = 753) MEAN CORPUSCULAR HEMOGLOBIN 29.8 pg 25.6-32.2 (BEAKER) (test code = 751) MEAN CORPUSCULAR HEMOGLOBIN CONC 32.7 GM/DL 32.2-35.5 (BEAKER) (test code = 752) RED CELL DISTRIBUTION WIDTH 16.5 % 11.7-14.4 H (BEAKER) (test code = 412) PLATELET COUNT (BEAKER) (test code 68 K/CU MM 150-450 L = 756) MEAN PLATELET VOLUME (BEAKER) 13.6 fL 9.4-12.3 H (test code = 754) NUCLEATED RED BLOOD CELLS (BEAKER) 0 /100 WBC 0-0 (test code = 413) POCT-GLUCOSE [id number] 00:13:00 Test Item Value Reference Range Interpretation Comments POC-GLUCOSE METER 363 mg/dL 70-110 H TESTED AT [facility] ([facility]) (test code = VICTOR MANUEL [place] 1538) [address] POCT-GLUCOSE [id number] 17:08:00 Test Item Value Reference Range Interpretation Comments POC-GLUCOSE METER 365 mg/dL 70-110 H TESTED AT [place] [address] ([facility]) (test code = SHYLACHASITY Curiel [facility] 1538) [address] POCT-GLUCOSE [id number] 16:42:00 Test Item Value Reference Range Interpretation Comments POC-GLUCOSE METER 396 mg/dL 70-110 H Notified R Margarita QUINONES/TESTED ([facility]) (test code = AT [place] [address] [address] [place] [address] POCT-GLUCOSE [id number] 07:42:00 Test Item Value Reference Range Interpretation Comments POC-GLUCOSE METER 145 mg/dL 70-110 H TESTED AT [place] [address] ([facility]) (test code = VICTOR MANUEL Curiel [facility] 1538) [address] POCT-GLUCOSE [id number] 06:37:00 Test Item Value Reference Range Interpretation Comments POC-GLUCOSE METER 99 mg/dL 70-110 TESTED AT [place] [address] ([facility]) (test code = VICTOR MANUEL Curiel [facility] [address] 1538) POCT-GLUCOSE [id number] 06:37:00 Test Item Value Reference Range Interpretation Comments POC-GLUCOSE METER 126 mg/dL 70-110 H TESTED AT [place] [address] ([facility]) (test code = SHYLACHASITY Curiel [facility] 1538) [address] POCT-GLUCOSE [id number] 04:11:00 Test Item Value Reference Range Interpretation Comments POC-GLUCOSE METER 137 mg/dL 70-110 H TESTED AT [place] [address] ([facility]) (test code = SHYLACHASITY Curiel [facility] 1538) [address] POCT-GLUCOSE [id number] 04:11:00 Test Item Value Reference Range Interpretation Comments POC-GLUCOSE METER 193 mg/dL 70-110 H TESTED AT [place] [address] ([facility]) (test code = SHYLACHASITY Curiel [facility] 1538) [address] POCT-GLUCOSE [id number] 04:11:00 Test Item Value Reference Range Interpretation Comments POC-GLUCOSE METER 220 mg/dL 70-110 H TESTED AT [place] [address] ([facility]) (test code = VICTOR MANUEL Curiel [facility] 1538) [address] POCT-GLUCOSE [id number] 04:11:00 Test Item Value Reference Range Interpretation Comments POC-GLUCOSE METER 228 mg/dL 70-110 H TESTED AT [facility] (BEAKER) (test code = VICTOR MANUEL [place] 153) [address] BASIC METABOLIC [id number] 04:04:00 Test Item Value Reference Range Interpretation Comments SODIUM (BEAKER) 143 meq/L 136-145 (test code = 381) POTASSIUM (BEAKER) 4.1 meq/L 3.5-5.1 (test code = 379) CHLORIDE (BEAKER) 114 meq/L 98-107 H (test code = 382) CO2 (BEAKER) (test 23 meq/L 22-29 code = 355) BLOOD UREA NITROGEN 24 mg/dL 7-21 H (BEAKER) (test code = 354) CREATININE (BEAKER) 0.85 mg/dL 0.57-1.25 (test code = 358) GLUCOSE RANDOM 146 mg/dL 70-105 H (BEAKER) (test code = 652) CALCIUM (BEAKER) 9.0 mg/dL 8.4-10.2 (test code = 697) EGFR (BEAKER) (test mL/min/1.73 INSUFFIC IENT CLINICAL code = 1092) sq m DATA TO CALCULA TE ESTIMATED GFR. [id number] 03:49:00 Test Item Value Reference Range Interpretation Comments PHOSPHORUS (BEAKER) (test code = 2.6 mg/dL 2.3-4.7 604) [id number] 03:49:00 Test Item Value Reference Range Interpretation Comments MAGNESIUM (BEAKER) (test code = 2.3 mg/dL 1.6-2.6 627) CBC (HEMOGRAM ONLY)2017-05-23 03:36:00 Test Item Value Reference Range Interpretation Comments WHITE BLOOD CELL COUNT (BEAKER) 9.9 K/ L 3.5-10.5 (test code = 775) RED BLOOD CELL COUNT (BEAKER) 3.43 M/ L 3.93-5.22 L (test code = 761) HEMOGLOBIN (BEAKER) (test code = 10.0 GM/DL 11.2-15.7 L 410) HEMATOCRIT (BEAKER) (test code = 30.6 % 34.1-44.9 L 411) MEAN CORPUSCULAR VOLUME (BEAKER) 89.2 fL 79.4-94.8 (test code = 753) MEAN CORPUSCULAR HEMOGLOBIN 29.2 pg 25.6-32.2 (BEAKER) (test code = 751) MEAN CORPUSCULAR HEMOGLOBIN CONC 32.7 GM/DL 32.2-35.5 (BEAKER) (test code = 752) RED CELL DISTRIBUTION WIDTH 16.5 % 11.7-14.4 H (BEAKER) (test code = 412) PLATELET COUNT (BEAKER) (test code 68 K/CU MM 150-450 L = 756) MEAN PLATELET VOLUME (BEAKER) 12.2 fL 9.4-12.3 (test code = 754) NUCLEATED RED BLOOD CELLS (BEAKER) 0 /100 WBC 0-0 (test code = 413) BLOOD GAS, [id number] 03:25:00 Test Item Value Reference Range Interpretation Comments PH ARTERIAL (BEAKER) (test code = 7.36 7.35-7.45 383) PCO2 ARTERIAL (BEAKER) (test code 46 mmHg 35-45 H = 384) PO2 ARTERIAL (BEAKER) (test code 135 mmHg 80-90 H = 385) O2 SATURATION ARTERIAL (BEAKER) 98.6 % 96.0-97.0 H (test code = 386) HCO3 ARTERIAL (BEAKER) (test code 25 mmol/L 21-29 = 388) BASE EXCESS ARTERIAL (BEAKER) -0.5 mmol/L -2.0-3.0 (test code = 387) PATIENT TEMPERATURE (BEAKER) 37.1 C (test code = 1818) FIO2 (BEAKER) (test code = 1819) 40.0 % POCT-GLUCOSE [id number] 03:22:00 Test Item Value Reference Range Interpretation Comments POC-GLUCOSE METER 154 mg/dL 70-110 H TESTED AT [facility] (BEAKER) (test code = VICTOR MANUEL Curiel [place] 1538) [address] BLOOD GAS, [id number] 00:25:00 Test Item Value Reference Range Interpretation Comments PH ARTERIAL (BEAKER) (test code = 7.32 7.35-7.45 L 383) PCO2 ARTERIAL (BEAKER) (test code 51 mmHg 35-45 H = 384) PO2 ARTERIAL (BEAKER) (test code 117 mmHg 80-90 H = 385) O2 SATURATION ARTERIAL (BEAKER) 97.9 % 96.0-97.0 H (test code = 386) HCO3 ARTERIAL (BEAKER) (test code 26 mmol/L 21-29 = 388) BASE EXCESS ARTERIAL (BEAKER) -1.0 mmol/L -2.0-3.0 (test code = 387) PATIENT TEMPERATURE (BEAKER) 36.7 C (test code = 1818) FIO2 (BEAKER) (test code = 1819) 36.0 % Post-extubation ABGBLOOD GAS, [id number] 23:12:00 Test Item Value Reference Range Interpretation Comments PH ARTERIAL (BEAKER) (test code = 7.34 7.35-7.45 L 383) PCO2 ARTERIAL (BEAKER) (test code 45 mmHg 35-45 = 384) PO2 ARTERIAL (BEAKER) (test code 111 mmHg 80-90 H = 385) O2 SATURATION ARTERIAL (BEAKER) 98.0 % 96.0-97.0 H (test code = 386) HCO3 ARTERIAL (BEAKER) (test code 24 mmol/L 21-29 = 388) BASE EXCESS ARTERIAL (BEAKER) -2.4 mmol/L -2.0-3.0 L (test code = 387) PATIENT TEMPERATURE (BEAKER) 35.8 C (test code = 1818) FIO2 (BEAKER) (test code = 1819) 40.0 % POCT-GLUCOSE [id number] 22:30:00 Test Item Value Reference Range Interpretation Comments POC-GLUCOSE METER 214 mg/dL 70-110 H TESTED AT [facility] (test code = VICTOR MANUEL [place] 1538) [address] POCT-GLUCOSE [id number] 22:29:00 Test Item Value Reference Range Interpretation Comments POC-GLUCOSE METER 197 mg/dL 70-110 H TESTED AT [place] [id number] (BEAKER) (test code = VICTOR MANUEL [place] 1538) [address] POCT-GLUCOSE [id number] 22:29:00 Test Item Value Reference Range Interpretation Comments POC-GLUCOSE METER 193 mg/dL 70-110 H TESTED AT [facility] (BEAKER) (test code = VICTOR MANUEL [place] 1538) [address] [id number] 19:50:00 Test Item Value Reference Range Interpretation Comments SODIUM (BEAKER) (test code = 381) 141 meq/L 136-145 BASIC METABOLIC [id number] 19:47:00 Test Item Value Reference Range Interpretation Comments SODIUM (BEAKER) 141 meq/L 136-145 (test code = 381) POTASSIUM (BEAKER) 4.6 meq/L 3.5-5.1 (test code = 379) CHLORIDE (BEAKER) 113 meq/L 98-107 H (test code = 382) CO2 (BEAKER) (test 18 meq/L 22-29 L code = 355) BLOOD UREA NITROGEN 25 mg/dL 7-21 H (BEAKER) (test code = 354) CREATININE (BEAKER) 0.80 mg/dL 0.57-1.25 (test code = 358) GLUCOSE RANDOM 169 mg/dL 70-105 H (BEAKER) (test code = 652) CALCIUM (BEAKER) 8.9 mg/dL 8.4-10.2 (test code = 697) EGFR (BEAKER) (test mL/min/1.73 INSUFFIC IENT CLINICAL code = 1092) sq m DATA TO CALCULA TE ESTIMATED GFR. [id number] 19:18:00 Test Item Value Reference Range Interpretation Comments POTASSIUM (BEAKER) (test code = 4.6 meq/L 3.5-5.1 379) [id number] 19:18:00 Test Item Value Reference Range Interpretation Comments MAGNESIUM (BEAKER) (test code = 2.6 mg/dL 1.6-2.6 627) [id number] 19:18:00 Test Item Value Reference Range Interpretation Comments PHOSPHORUS (BEAKER) (test code = 2.8 mg/dL 2.3-4.7 604) [id number] 19:18:00 Test Item Value Reference Range Interpretation Comments GLUCOSE RANDOM (BEAKER) (test code 169 mg/dL 70-105 H = 652) Effective 09/16/2014: Reference Range Change-Adult onlyNew: 70-105 Previous: [id number] 19:15:00 Test Item Value Reference Range Interpretation Comments PARTIAL THROMBOPLASTIN TIME 32.7 seconds 22.5-36.0 (BEAKER) (test code = 760) [id number] 19:15:00 Test Item Value Reference Range Interpretation Comments FIBRINOGEN LEVEL (BEAKER) (test 181 mg/dl 225-434 L code = 658) LACTIC ACID, ARTERIAL, WHOLE [id number] 19:15:00 Test Item Value Reference Range Interpretation Comments LACTATE BLOOD ARTERIAL (2) 0.9 mmol/L 0.5-2.2 (BEAKER) (test code = 2874) Effective 03/02/2016: Units/Reference Range ChangeNew: 0.5-2.2 mmol/L Previous: 5-20 mg/dLPROTHROMBIN [id number] 19:14:00 Test Item Value Reference Range Interpretation Comments PROTIME (BEAKER) (test code = 18.7 seconds 11.7-14.7 H 759) INR (BEAKER) (test code = 370) 1.6 <=5.9 RECOMMENDED COUMADIN/WARFARIN INR THERAPY RANGESSTANDARD DOSE: 2.0 - 3.0 Includes: PROPHYLAXIS forvenous thrombosis, systemic embolization; TREATMENT for venous thrombosis and/or pulmonary embolus.HIGH RISK: Target INR is 2.5-3.5 for patients with mechanical heart valves.CBC W/PLT COUNT & AUTO DIFFERENTIAL 2017-05-22 19:09:00 Test Item Value Reference Range Interpretation Comments WHITE BLOOD CELL COUNT (BEAKER) 6.4 K/ L 3.5-10.5 (test code = 775) RED BLOOD CELL COUNT (BEAKER) 3.50 M/ L 3.93-5.22 L (test code = 761) HEMOGLOBIN (BEAKER) (test code = 10.4 GM/DL 11.2-15.7 L 410) HEMATOCRIT (BEAKER) (test code = 31.0 % 34.1-44.9 L 411) MEAN CORPUSCULAR VOLUME (BEAKER) 88.6 fL 79.4-94.8 (test code = 753) MEAN CORPUSCULAR HEMOGLOBIN 29.7 pg 25.6-32.2 (BEAKER) (test code = 751) MEAN CORPUSCULAR HEMOGLOBIN CONC 33.5 GM/DL 32.2-35.5 (BEAKER) (test code = 752) RED CELL DISTRIBUTION WIDTH 15.7 % 11.7-14.4 H (BEAKER) (test code = 412) PLATELET COUNT (BEAKER) (test code 53 K/CU MM 150-450 L = 756) MEAN PLATELET VOLUME (BEAKER) 12.0 fL 9.4-12.3 (test code = 754) NUCLEATED RED BLOOD CELLS (BEAKER) 0 /100 WBC 0-0 (test code = 413) NEUTROPHILS RELATIVE PERCENT 81 % (BEAKER) (test code = 429) LYMPHOCYTES RELATIVE PERCENT 9 % (BEAKER) (test code = 430) MONOCYTES RELATIVE PERCENT 6 % (BEAKER) (test code = 431) EOSINOPHILS RELATIVE PERCENT 3 % (BEAKER) (test code = 432) BASOPHILS RELATIVE PERCENT 0 % (BEAKER) (test code = 437) NEUTROPHILS ABSOLUTE COUNT 5.15 K/ L 1.56-6.13 (BEAKER) (test code = 670) LYMPHOCYTES ABSOLUTE COUNT 0.60 K/ L 1.18-3.74 L (BEAKER) (test code = 414) MONOCYTES ABSOLUTE COUNT (BEAKER) 0.41 K/ L 0.24-0.36 H (test code = 415) EOSINOPHILS ABSOLUTE COUNT 0.16 K/ L 0.04-0.36 (BEAKER) (test code = 416) BASOPHILS ABSOLUTE COUNT (BEAKER) 0.01 K/ L 0.01-0.08 (test code = 417) IMMATURE GRANULOCYTES-RELATIVE 1 % 0-1 PERCENT (BEAKER) (test code = 2801) OXYGEN SATURATION, [id number] 18:57:00 Test Item Value Reference Range Interpretation Comments O2 SATURATION (MEASURED) (BEAKER) 66.7 % (test code = 1455) CALCIUM, [id number] 18:57:00 Test Item Value Reference Range Interpretation Comments CALCIUM IONIZED (BEAKER) (test 1.10 mmol/L 1.12-1.27 L code = 698) PH, BLOOD (BEAKER) (test code = 7.42 1810) BLOOD GAS, [id number] 18:56:00 Test Item Value Reference Range Interpretation Comments PH ARTERIAL (BEAKER) (test code = 7.42 7.35-7.45 383) PCO2 ARTERIAL (BEAKER) (test code 32 mmHg 35-45 L = 384) PO2 ARTERIAL (BEAKER) (test code 207 mmHg 80-90 H = 385) O2 SATURATION ARTERIAL (BEAKER) 99.5 % 96.0-97.0 H (test code = 386) HCO3 ARTERIAL (BEAKER) (test code 21 mmol/L 21-29 = 388) BASE EXCESS ARTERIAL (BEAKER) -3.7 mmol/L -2.0-3.0 L (test code = 387) PATIENT TEMPERATURE (BEAKER) 34.3 C (test code = 1818) FIO2 (BEAKER) (test code = 1819) 40.0 % [id number] 18:04:00 Test Item Value Reference Range Interpretation Comments ACTIVATED CLOTTING TIME > sec OUTS JAIRO MEASURING (BEAKER) (test code = RANGET ESTED AT [place] [address]) [facility] [address] [id number] 18:04:00 Test Item Value Reference Range Interpretation Comments ACTIVATED CLOTTING TIME > sec OUTS JAIRO MEASURING (BEAKER) (test code = RANGET ESTED AT [facility] 67 441) [facility] [address] THROMBOELASTOGRAPH (TEG)2017-05-22 17:31:00 Test Item Value Reference Range Interpretation Comments TEG ACTIVATED CLOTTING TIME 9.1 minutes 4.0-7.0 H (BEAKER) (test code = 1407) TEG FIBRINOGEN ACTIVITY (BEAKER) 63.0 degrees 61.0-73.0 (test code = 1408) TEG PLT. AGGREGATION (BEAKER) 58.2 MM 55.0-65.0 (test code = 1409) TGH ACTIVATED CLOTTING TIME 9.1 minutes 4.0-7.0 H (BEAKER) (test code = 1411) TGH FIBRINOGEN ACTIVITY (BEAKER) 63.9 degrees 61.0-73.0 (test code = 1412) TGH PLT. AGGREGATION (BEAKER) 57.0 MM 55.0-65.0 (test code = 1413) [id number] 17:11:00 Test Item Value Reference Range Interpretation Comments FIBRINOGEN LEVEL (BEAKER) (test 203 mg/dl 225-434 L code = 658) [id number] 17:06:00 Test Item Value Reference Range Interpretation Comments PARTIAL THROMBOPLASTIN TIME 35.4 seconds 22.5-36.0 (BEAKER) (test code = 760) PROTHROMBIN [id number] 17:05:00 Test Item Value Reference Range Interpretation Comments PROTIME (BEAKER) (test code = 21.6 seconds 11.7-14.7 H 759) INR (BEAKER) (test code = 370) 1.9 <=5.9 RECOMMENDED COUMADIN/WARFARIN INR THERAPY RANGESSTANDARD DOSE: 2.0 - 3.0 Includes: PROPHYLAXIS forvenous thrombosis, systemic embolization; TREATMENT for venous thrombosis and/or pulmonary embolus.HIGH RISK: Target INR is 2.5-3.5 for patients with mechanical heart valves.POTASSIUM-STAT [id number] 16:58:00 Test Item Value Reference Range Interpretation Comments POTASSIUM (BEAKER) (test code = 5.0 meq/L 3.6-5.5 379) CALCIUM, [id number] 16:58:00 Test Item Value Reference Range Interpretation Comments CALCIUM IONIZED (BEAKER) (test 0.98 mmol/L 1.12-1.27 L code = 698) PH, BLOOD (BEAKER) (test code = 7.34 1810) BLOOD GAS, [id number] 16:58:00 Test Item Value Reference Range Interpretation Comments PH ARTERIAL (BEAKER) (test code = 7.34 7.35-7.45 L 383) PCO2 ARTERIAL (BEAKER) (test code 35 mmHg 35-45 = 384) PO2 ARTERIAL (BEAKER) (test code 424 mmHg 80-90 H = 385) O2 SATURATION ARTERIAL (BEAKER) 99.8 % 96.0-97.0 H (test code = 386) HCO3 ARTERIAL (BEAKER) (test code 19 mmol/L 21-29 L = 388) BASE EXCESS ARTERIAL (BEAKER) -6.7 mmol/L -2.0-3.0 L (test code = 387) PATIENT TEMPERATURE (BEAKER) 36.0 C (test code = 1818) FIO2 (BEAKER) (test code = 1819) 100.0 % SODIUM NA-STAT [id number] 16:58:00 Test Item Value Reference Range Interpretation Comments SODIUM (BEAKER) (test code = 381) 131 meq/L 135-148 L GLUCOSE-STAT [id number] 16:58:00 Test Item Value Reference Range Interpretation Comments GLUCOSE RANDOM (BEAKER) (test code 190 mg/dL 70-110 H = 652) HGB/HCT (H&H) - STAT [id number] 16:58:00 Test Item Value Reference Range Interpretation Comments HEMOGLOBIN (BEAKER) (test code = 10.0 g/dL 12.0-15.0 L 410) HEMATOCRIT (BEAKER) (test code = 29.0 % 36.0-45.0 L 411) PLATELET [id number] 16:40:00 Test Item Value Reference Range Interpretation Comments PLATELET COUNT (BEAKER) (test code 64 K/CU MM 150-450 L = 756) SODIUM NA-STAT [id number] 16:34:00 Test Item Value Reference Range Interpretation Comments SODIUM (BEAKER) (test code = 381) 130 meq/L 135-148 L GLUCOSE-STAT [id number] 16:34:00 Test Item Value Reference Range Interpretation Comments GLUCOSE RANDOM (BEAKER) (test code 161 mg/dL 70-110 H = 652) HGB/HCT (H&H) - STAT [id number] 16:34:00 Test Item Value Reference Range Interpretation Comments HEMOGLOBIN (BEAKER) (test code = 7.5 g/dL 12.0-15.0 L 410) HEMATOCRIT (BEAKER) (test code = 22.0 % 36.0-45.0 L 411) CALCIUM, [id number] 16:34:00 Test Item Value Reference Range Interpretation Comments CALCIUM IONIZED (BEAKER) (test 1.11 mmol/L 1.12-1.27 L code = 698) PH, BLOOD (BEAKER) (test code = 7.41 1810) BLOOD GAS, [id number] 16:34:00 Test Item Value Reference Range Interpretation Comments PH ARTERIAL (BEAKER) (test code = 7.41 7.35-7.45 383) PCO2 ARTERIAL (BEAKER) (test code 33 mmHg 35-45 L = 384) PO2 ARTERIAL (BEAKER) (test code 295 mmHg 80-90 H = 385) O2 SATURATION ARTERIAL (BEAKER) 99.7 % 96.0-97.0 H (test code = 386) HCO3 ARTERIAL (BEAKER) (test code 21 mmol/L 21-29 = 388) BASE EXCESS ARTERIAL (BEAKER) -3.8 mmol/L -2.0-3.0 L (test code = 387) PATIENT TEMPERATURE (BEAKER) 36.2 C (test code = 1818) FIO2 (BEAKER) (test code = 1819) 90.0 % POTASSIUM-STAT [id number] 16:33:00 Test Item Value Reference Range Interpretation Comments POTASSIUM (BEAKER) (test code = 5.4 meq/L 3.6-5.5 379) POTASSIUM-STAT [id number] 15:48:00 Test Item Value Reference Range Interpretation Comments POTASSIUM (BEAKER) (test code = 5.2 meq/L 3.6-5.5 379) BLOOD GAS, [id number] 15:48:00 Test Item Value Reference Range Interpretation Comments PH ARTERIAL (BEAKER) (test code = 7.45 7.35-7.45 383) PCO2 ARTERIAL (BEAKER) (test code 32 mmHg 35-45 L = 384) PO2 ARTERIAL (BEAKER) (test code 272 mmHg 80-90 H = 385) O2 SATURATION ARTERIAL (BEAKER) 99.7 % 96.0-97.0 H (test code = 386) HCO3 ARTERIAL (BEAKER) (test code 23 mmol/L 21-29 = 388) BASE EXCESS ARTERIAL (BEAKER) -2.1 mmol/L -2.0-3.0 L (test code = 387) PATIENT TEMPERATURE (BEAKER) 31.5 C (test code = 1818) FIO2 (BEAKER) (test code = 1819) 70.0 % SODIUM NA-STAT [id number] 15:48:00 Test Item Value Reference Range Interpretation Comments SODIUM (BEAKER) (test code = 381) 132 meq/L 135-148 L GLUCOSE-STAT [id number] 15:48:00 Test Item Value Reference Range Interpretation Comments GLUCOSE RANDOM (BEAKER) (test code 116 mg/dL 70-110 H = 652) HGB/HCT (H&H) - STAT [id number] 15:48:00 Test Item Value Reference Range Interpretation Comments HEMOGLOBIN (BEAKER) (test code = 6.3 g/dL 12.0-15.0 L 410) HEMATOCRIT (BEAKER) (test code = 19.0 % 36.0-45.0 L 411) HGB/HCT (H&H) - STAT [id number] 14:17:00 Test Item Value Reference Range Interpretation Comments HEMOGLOBIN (BEAKER) (test code = 10.2 g/dL 12.0-15.0 L 410) HEMATOCRIT (BEAKER) (test code = 30.0 % 36.0-45.0 L 411) BLOOD GAS, [id number] 14:16:00 Test Item Value Reference Range Interpretation Comments PH ARTERIAL (BEAKER) (test code = 7.50 7.35-7.45 H 383) PCO2 ARTERIAL (BEAKER) (test code 30 mmHg 35-45 L = 384) PO2 ARTERIAL (BEAKER) (test code 555 mmHg 80-90 H = 385) O2 SATURATION ARTERIAL (BEAKER) 99.9 % 96.0-97.0 H (test code = 386) HCO3 ARTERIAL (BEAKER) (test code 23 mmol/L 21-29 = 388) BASE EXCESS ARTERIAL (BEAKER) -0.1 mmol/L -2.0-3.0 (test code = 387) PATIENT TEMPERATURE (BEAKER) 36.5 C (test code = 1818) FIO2 (BEAKER) (test code = 1819) 100.0 % GLUCOSE-STAT [id number] 14:13:00 Test Item Value Reference Range Interpretation Comments GLUCOSE RANDOM (BEAKER) (test code 104 mg/dL 70-110 = 652) SODIUM NA-STAT [id number] 14:13:00 Test Item Value Reference Range Interpretation Comments SODIUM (BEAKER) (test code = 381) 136 meq/L 135-148 POTASSIUM-STAT [id number] 14:13:00 Test Item Value Reference Range Interpretation Comments POTASSIUM (BEAKER) (test code = 3.9 meq/L 3.6-5.5 379) HEMOGLOBIN [id number] 15:10:00 Test Item Value Reference Range Interpretation Comments HEMOGLOBIN A1C (BEAKER) (test code = 7.4 % 4.3-6.1 H 368) BASIC METABOLIC [id number] 11:36:00 Test Item Value Reference Range Interpretation Comments SODIUM (BEAKER) 138 meq/L 136-145 (test code = 381) POTASSIUM (BEAKER) 4.4 meq/L 3.5-5.1 (test code = 379) CHLORIDE (BEAKER) 108 meq/L 98-107 H (test code = 382) CO2 (BEAKER) (test 22 meq/L 22-29 code = 355) BLOOD UREA NITROGEN 31 mg/dL 7-21 H (BEAKER) (test code = 354) CREATININE (BEAKER) 1.11 mg/dL 0.57-1.25 (test code = 358) GLUCOSE RANDOM 127 mg/dL 70-105 H (BEAKER) (test code = 652) CALCIUM (BEAKER) 9.6 mg/dL 8.4-10.2 (test code = 697) EGFR (BEAKER) (test mL/min/1.73 INSUFFIC IENT CLINICAL code = 1092) sq m DATA TO CALCULA TE ESTIMATED GFR. PROTHROMBIN TIME/[id number] 11:29:00 Test Item Value Reference Range Interpretation Comments PROTIME (BEAKER) (test code = 14.2 seconds 11.7-14.7 759) INR (BEAKER) (test code = 370) 1.1 <=5.9 RECOMMENDED COUMADIN/WARFARIN INR THERAPY RANGESSTANDARD DOSE: 2.0 - 3.0 Includes: PROPHYLAXIS forvenous thrombosis, systemic embolization; TREATMENT for venous thrombosis and/or pulmonary embolus.HIGH RISK: Target INR is 2.5-3.5 for patients with mechanical heart valves.CBC W/PLT COUNT & AUTO DIFFERENTIAL 2017-05-18 11:23:00 Test Item Value Reference Range Interpretation Comments WHITE BLOOD CELL COUNT (BEAKER) 6.6 K/ L 4.0-10.0 (test code = 775) RED BLOOD CELL COUNT (BEAKER) 3.60 M/ L 4.00-5.00 L (test code = 761) HEMOGLOBIN (BEAKER) (test code = 11.5 GM/DL 12.0-15.0 L 410) HEMATOCRIT (BEAKER) (test code = 34.5 % 36.0-45.0 L 411) MEAN CORPUSCULAR VOLUME (BEAKER) 95.8 fL 82.0-99.0 (test code = 753) MEAN CORPUSCULAR HEMOGLOBIN 31.8 pg 27.0-33.0 (BEAKER) (test code = 751) MEAN CORPUSCULAR HEMOGLOBIN CONC 33.2 GM/DL 32.0-36.0 (BEAKER) (test code = 752) RED CELL DISTRIBUTION WIDTH 11.9 % 10.3-14.2 (BEAKER) (test code = 412) PLATELET COUNT (BEAKER) (test 121 K/CU MM 150-430 L code = 756) MEAN PLATELET VOLUME (BEAKER) 9.6 fL 6.5-10.5 (test code = 754) NUCLEATED RED BLOOD CELLS 0 /100 WBC 0-0 (BEAKER) (test code = 413) NEUTROPHILS RELATIVE PERCENT 76 % (BEAKER) (test code = 429) LYMPHOCYTES RELATIVE PERCENT 13 % (BEAKER) (test code = 430) MONOCYTES RELATIVE PERCENT 8 % (BEAKER) (test code = 431) EOSINOPHILS RELATIVE PERCENT 4 % (BEAKER) (test code = 432) BASOPHILS RELATIVE PERCENT 0 % (BEAKER) (test code = 437) NEUTROPHILS ABSOLUTE COUNT 4.99 K/ L 1.80-8.00 (BEAKER) (test code = 670) LYMPHOCYTES ABSOLUTE COUNT 0.83 K/ L 1.48-4.50 L (BEAKER) (test code = 414) MONOCYTES ABSOLUTE COUNT (BEAKER) 0.53 K/ L 0.00-1.30 (test code = 415) EOSINOPHILS ABSOLUTE COUNT 0.23 K/ L 0.00-0.50 (BEAKER) (test code = 416) BASOPHILS ABSOLUTE COUNT (BEAKER) 0.01 K/ L 0.00-0.20 (test code = 417) 0.00
--- NOTE | 2020-05-18 18:07 | EDPHYS ---
Physician Documentation [facility] Name: Christa Rubio Age: 75 yrs Sex: Female : 1945 Arrival Date: 05/18/2020 Time: 14:26 Bed 2 Private MD: Mich Joshua ED Physician Danielito Bush HPI: 05/18 15:28 This 75 yrs old Female presents to ER via Wheelchair with complaints of Hip rn Pain, Trouble Walking. 15:28 The patient or guardian reports pain. rn 15:28 Onset: The symptoms/episode began/occurred 3 day(s) ago. Modifying factors: The rn symptoms are alleviated by remaining still, the symptoms are aggravated by any movement. Severity of symptoms: At their worst the symptoms were moderate, in the emergency department the symptoms are unchanged. The patient has not experienced similar symptoms in the past. Reports pain in let buttocks, no trauma, no fever, reports ok when lays still, worse when touching and moving left leg. Not on blood thinners. No direct hip pain. No abd pain. . Historical: - Allergies: 14:33 No Known Allergies; em - PMHx: 14:33 Diabetes - NIDDM; Hypertension; em - PSHx: 14:33 CABG; Hysterectomy; Bladder suspension; Cholecystectomy; em - Immunization history:: Adult Immunizations up to date. - Social history:: Smoking status: Patient denies any tobacco usage or history of. - Family history:: not pertinent. - Hospitalizations: : No recent hospitalization is reported. ROS: 15:28 Constitutional: Negative for fever, chills, and weight loss, Cardiovascular: Negative rn for chest pain, palpitations, and edema, Respiratory: Negative for shortness of breath, cough, wheezing, and pleuritic chest pain, Abdomen/GI: Negative for abdominal pain, nausea, vomiting, diarrhea, and constipation, Back: Negative for injury and pain, MS/Extremity: Negative for injury and deformity, Skin: Negative for injury, rash, and discoloration, Neuro: Negative for headache, weakness, numbness, tingling, and seizure. Exam: 15:28 Constitutional: This is a well developed, well nourished patient who is awake, alert, rn and in no acute distress. Back: No spinal tenderness. Skin: Warm, dry with normal turgor. Normal color with no rashes, no lesions, and no evidence of cellulitis. MS/ Extremity: Pulses equal, no cyanosis. No focal hip tenderness or deformity. Vital Signs: 14:31 BP 164 / 71; Resp 20; Temp 98.2; Pulse Ox 99% on R/A; Weight 62.6 kg; Height 5 ft. 1 em in. (154.94 cm); 16:00 BP 157 / 68; Pulse 72; Resp 18; Pulse Ox 99% on R/A; ph 17:19 BP 210 / 91; Pulse 74; Resp 16; Temp 97.5(O); Pulse Ox 97% on R/A; mh5 19:14 BP 178 / 90; Pulse 76; Resp 18; Temp 97.8; Pulse Ox 98% on R/A; ph 14:31 Body Mass Index 26.07 (62.60 kg, 154.94 cm) em MDM: 15:06 Patient medically screened. rn 18:03 Differential diagnosis: bursitis, arthritis, strain, radiculopathy. Data reviewed: rn vital signs, nurses notes, lab test result(s), radiologic studies, CT scan, plain films, and as a result, I will discharge patient. Counseling: I had a detailed discussion with the patient and/or guardian regarding: the historical points, exam findings, and any diagnostic results supporting the discharge/admit diagnosis, lab results, radiology results, the need for outpatient follow up, to return to the emergency department if symptoms worsen or persist or if there are any questions or concerns that arise at home. Special discussion: I discussed with the patient/guardian in detail that at this point there is no indication for admission to the hospital. It is understood, however, that if the symptoms persist or worsen the patient needs to return immediately for re-evaluation. ED course: Pt with 2 problems, + multiple level lower back problems to suggest origination of buttocks pain, but also incidental abdominal wall hematoma. Does show some extravasation, spoke at length with patient and daughter, offered admission/observation for abdominal wall hematoma, they prefer to go home, daughters are nurses and comfortable with plan, patient does not want to be admitted and states hematoma not even hurting, doesn't recall injury, not on blood thinners, and wouldn't have come in for that problem. Will dc home with steroids for likely radiculopathy and recommend outpt MRI lumbar spine. Daughter states will call pcp for outpt H/H and reeval. . 05/18 15:20 Order name: CBC with Diff; Complete Time: 16:12 rn 05/18 15:20 Order name: Basic Metabolic Panel; Complete Time: 16:12 rn 05/18 14:56 Order name: XRAY Hip LEFT 2 view 05/18 15:20 Order name: CT Lumbar Spine Wo Con; Complete Time: 17:33 rn 05/18 17:29 Order name: CREATININE WHOLE BLOOD; Complete Time: 17:33 EDHI 05/18 17:58 Order name: Urine Dipstick--Ancillary (enter results) 05/18 15:20 Order name: IV Start; Complete Time: 16:05 rn 05/18 15:20 Order name: CT Pelvis w cont; Complete Time: 17:33 rn 05/18 17:58 Order name: Urine Dipstick-Ancillary (obtain specimen); Complete Time: 19:13 05/18 18:03 Order name: Misc. Order: apply abdominal wall binder under umbilicus; Complete Time: rn 18:36 Administered Medications: 18:20 Drug: Decadron - Dexamethasone 10 mg {Note: IV d/c, given IM in R deltoid.} Route: IVP; ph Site: Other; 18:45 Follow up: Response: No adverse reaction ph Disposition: 05/18/20 18:07 Discharged to Home. Impression: Radiculopathy, lumbar region, Abdominal wall hematoma, spontaneous. - Condition is Stable. - Discharge Instructions: Hematoma, Lumbosacral Radiculopathy. - Prescriptions for Cyclobenzaprine 10 mg Oral Tablet - take 1 tablet by ORAL route every 8 hours As needed; 20 tablet. Medrol (Dennis) 4 mg Oral Tablets, Dose Pack - take 1 tablet by ORAL route as directed - follow package instructions; 1 packet. - Medication Reconciliation Form, Thank You Letter, Antibiotic Education, Prescription Opioid Use form. - Follow up: Private Physician; When: 48 Hours; Reason: Recheck today's complaints, Re-evaluation by your physician. - Problem is new. - Symptoms are unchanged. Signatures: Dispatcher [employer] Marcellus Capps RN Danielito Birmingham MD MD rn Smirch, Shelby, RN RN ss Hall, Patricia RN RN Soumya Palacios RN RN ls4 Corrections: (The following items were deleted from the chart) 19:06 18:07 05/18/2020 18:07 Discharged to Home. Impression: Radiculopathy, lumbar region; ls4 Abdominal wall hematoma, spontaneous. Condition is Stable. Forms are Medication Reconciliation Form, Thank You Letter, Antibiotic Education, Prescription Opioid Use. Follow up: Private Physician; When: 48 Hours; Reason: Recheck today's complaints, Re-evaluation by your physician. Problem is new. Symptoms are unchanged. rn
--- NOTE | 2020-05-18 18:07 | ER ---
Nurse's Notes [facility] Name: Christa Rubio Age: 75 yrs Sex: Female : 1945 Arrival Date: 05/18/2020 Time: 14:26 Bed 2 Private MD: Mich Joshua Diagnosis: Radiculopathy, lumbar region;Abdominal wall hematoma, spontaneous Presentation: 05/18 14:31 Chief complaint: Patient states: left hip pain since Monday, denies trauma. Coronavirus em screen: Patient denies a cough. Patient denies shortness of breath or difficulty breathing. Patient denies measured and/or subjective temperature greater than 100.4F prior to today's visit. Patient denies travel on a cruise ship or to a country the [facility] currently lists as an affected area. Patient denies contact with known and/or suspected case of COVID-19. Ebola Screen: Patient negative for fever greater than or equal to 101.5 degrees Fahrenheit, and additional compatible Ebola Virus Disease symptoms Patient denies exposure to infectious person. Patient denies travel to an Ebola-affected area in the 21 days before illness onset. No symptoms or risks identified at this time. Onset of symptoms was May 15, 2020. 14:31 Method Of Arrival: Wheelchair em 14:31 Acuity: АННА 4 em 14:31 Initial Sepsis Screen: Does the patient meet any 2 criteria? No. Patient's initial em sepsis screen is negative. Does the patient have a suspected source of infection? No. Patient's initial sepsis screen is negative. Risk Assessment: Do you want to hurt yourself or someone else? Patient reports no desire to harm self or others. Historical: - Allergies: 14:33 No Known Allergies; em - PMHx: 14:33 Diabetes - NIDDM; Hypertension; em - PSHx: 14:33 CABG; Hysterectomy; Bladder suspension; Cholecystectomy; em - Immunization history:: Adult Immunizations up to date. - Social history:: Smoking status: Patient denies any tobacco usage or history of. - Family history:: not pertinent. - Hospitalizations: : No recent hospitalization is reported. Screenin:17 Abuse screen: Denies threats or abuse. Denies injuries from another. Nutritional ph screening: No deficits noted. Tuberculosis screening: No symptoms or risk factors identified. Fall Risk None identified. Assessment: 15:00 General: Appears in no apparent distress. uncomfortable, well groomed, Behavior is ph calm, cooperative, appropriate for age, Denies fever, feeling ill. 15:00 Pain: Complains of pain in left hip. Neuro: Level of Consciousness is awake, alert, ph obeys commands, Oriented to person, place, time, situation. Cardiovascular: Capillary refill < 3 seconds in bilateral fingers. Respiratory: Airway is patent Respiratory effort is even, unlabored, Respiratory pattern is regular, symmetrical. GI: No signs and/or symptoms were reported involving the gastrointestinal system. Derm: Skin is intact, Skin is pink, warm \T\ dry. Musculoskeletal: Circulation, motion, and sensation intact. Range of motion: intact in all extremities. 16:16 Reassessment: Patient appears in no apparent distress at this time. Patient and/or ph family updated on plan of care and expected duration. Pain level reassessed. Patient is alert, oriented x 3, equal unlabored respirations, skin warm/dry/pink. Pt taken to CT by wheelchair. Vital Signs: 14:31 BP 164 / 71; Resp 20; Temp 98.2; Pulse Ox 99% on R/A; Weight 62.6 kg; Height 5 ft. 1 em in. (154.94 cm); 16:00 BP 157 / 68; Pulse 72; Resp 18; Pulse Ox 99% on R/A; ph 17:19 BP 210 / 91; Pulse 74; Resp 16; Temp 97.5(O); Pulse Ox 97% on R/A; mh5 19:14 BP 178 / 90; Pulse 76; Resp 18; Temp 97.8; Pulse Ox 98% on R/A; ph 14:31 Body Mass Index 26.07 (62.60 kg, 154.94 cm) em ED Course: 14:26 Patient arrived in ED. ag5 14:26 Mich Joshua MD is Private Physician. ag5 14:33 Arm band placed on. em 14:43 Birgit Tanner, RN is Primary Nurse. ph 14:44 Triage completed. em 15:06 Danielito Bush MD is Attending Physician. rn 15:10 Initial lab(s) drawn, by ED staff, sent to lab. Inserted saline lock: 22 gauge in right ph antecubital area, using aseptic technique. Blood collected. 15:29 XRAY Hip LEFT 2 view In Process Unspecified. EDMS 16:17 Patient has correct armband on for positive identification. Bed in low position. Call ph light in reach. Side rails up X 1. Pulse ox on. NIBP on. Door closed. Noise minimized. Warm blanket given. 16:28 CT Lumbar Spine Wo Con In Process Unspecified. EDMS 16:28 CT Pelvis w cont In Process Unspecified. EDMS 16:29 Inserted saline lock: 22 gauge in right antecubital area, using aseptic technique. mh5 Blood collected. 18:00 IV discontinued, intact, bleeding controlled, No redness/swelling at site. Pressure ph dressing applied. 18:45 No provider procedures requiring assistance completed. ph Administered Medications: 18:20 Drug: Decadron - Dexamethasone 10 mg {Note: IV d/c, given IM in R deltoid.} Route: IVP; ph Site: Other; 18:45 Follow up: Response: No adverse reaction ph Outcome: 18:07 Discharge ordered by . rn 18:45 Patient left the ED. ph 18:45 Discharged to home via wheelchair, with family. ph 18:45 Condition: stable 18:45 Discharge instructions given to patient, family, Instructed on discharge instructions, follow up and referral plans. medication usage, Demonstrated understanding of instructions, follow-up care, medications. Signatures: Dispatcher [employer] Marcellus Capps, RN Danielito Birmingham MD MD rn Hall, Patricia, RN RN ph Martinez, Maria 5 Soumya Pedroza RN RN 4 Leslie Head 5 Corrections: (The following items were deleted from the chart) 16:16 15:00 General: Appears in no apparent distress. uncomfortable, well groomed, Behavior ph is calm, cooperative, appropriate for age, Denies fever, feeling ill, ph 19:11 19:06 Patient left the ED. ls4 ph
[2020-05-18] MEDS ORDERED: dexAMETHasone 10 MG/ML VIAL ONE (18:20)
[2020-05-18 19:32] LABS: Urine Blood 1+ (NEG); Urine Glucose 2+ (NEG); Urine Protein 2+ (NEG)
[2020-05-19 05:10] VITALS: BP 210/91; TEMP 97.5; O2SAT 97
--- NOTE | 2020-05-19 12:19 | RAD REPORT ---
EXAM DESCRIPTION: RAD - Hip Left 2 View - 05/18/2020 3:29 pm CLINICAL HISTORY: PAIN, fall COMPARISON: No comparisons FINDINGS: AP and cross-table lateral views were obtained. There is no fracture or dislocation. No acute or destructive bony process seen. No joint effusion or periarticular abnormality is seen. No acute finding of the bony pelvis. No soft tissue abnormality. Dense arterial tree calcifications are present. Numerous surgical clips are seen in the medial soft t issues possibly from vein harvesting. IMPRESSION: Negative left hip examination for acute or significant findings.
== END 2020-05-18 19:06 | disposition home or self-care (01) ==
LOC: ER 14:24
DX: M54.16 Radiculopathy, lumbar region (principal); S30.1XXA Contusion of abdominal wall, initial encounter; X58.XXXA Exposure to other specified factors, initial encounter
CPT/HCPCS: 85025; 80048; 36415; 82565; 81003; 72131; 72193; 73502; 96374; 99284; Q9967; J1100